=== PATIENT | female | born 2000 | race Caucasian/White ===

== ENCOUNTER 2024-11-25 10:51 | Emergency (ER) | payer BC, OTHER, SELFPAY ==
--- NOTE | 2024-11-25 10:53 | PC.NURSE ---
pt left due to wait time
--- OUTSIDE RECORDS SUMMARY | 2024-12-02 14:17 | XMS_ITS | Patient Health Summary ---
Author Organization [facility] Address [address] [place] [address] Care Team Providers Care Clerical Support Specialist Name Role Phone Yumiko Jones MD Primary Care Provider Note from [facility],non-owned Affiliates and Associated Physician Practices is amultiple site organization consisting of ambulatory clinics and hospital sitesin [place], [place], [place] and [place]. This disclosure is being madepursuant to the Care Everywhere program and may not contain all information available regarding this patient. Last updated 18.[facility] Allergies No known active allergies Medications * Be aware that medications may not be up to date on this document. Alwaysverify current medications with the patient. * escitalopram (LEXAPRO) 5 MG tablet(Started 04/14/2019) Take 1 tablet by mouth once daily Reasons: Major Depressive Disorder 1 refill remaining * traZODone (DESYREL) 50 MG tablet(Started 04/13/2019) Take 1 tablet by mouth at bedtime Reasons: Trouble Sleeping 1 refill remaining Active Problems Problem Noted Date Diagnosed Date MDD (major depressive disorder), single episode, severe 04/09/2019 Resolved Problems Problem Noted Date Diagnosed Date Resolved Date Suicidal ideation 04/11/2019 04/14/2019 Social History Tobacco Use Types Packs/Day Years Used Date Smoking Tobacco: Never Smokeless Tobacco: Never Alcohol Use Standard Drinks/Week Comments No 0 (1 standard drink = 0.6 oz pur e alcohol) Sex and Gender Information Value Date Recorded Sex Assigned at Not on file Gender Identity Not on file Sexual Orientation Not on file Last Filed Vital Signs Vital Sign Reading Time Taken Comments Blood Pressure 105/69 04/13/2019 7:19 PM CDT Pulse 73 04/13/2019 7:19 PM CDT Temperature 37 ??C (98.6 ??F) 04/13/2019 7:19 PM CDT Respiratory Rate 18 04/13/2019 7:19 PM CDT Oxygen Saturation 100% 04/13/2019 7:19 PM CDT Inhaled Oxygen Concentration - - Weight 47.1 kg (103 lb 12.8 oz) 04/09/2019 7:05 PM CDT Height 162.6 cm (5' 4 ) 04/09/2019 7:05 PM CDT Body Mass Index 17.82 04/09/2019 7:05 PM CDT Procedures * CHLAMYDIA + GC AMPLIFIED PROBE(Performed 04/10/2019) * HEMOGLOBIN A1C(Performed 04/10/2019) * LIPID PROFILE(Performed 04/10/2019) * TSH REFLEX FREE T4(Performed 04/10/2019) * COMPREHENSIVE METABOLIC PANEL(Performed 04/10/2019) * CBC W AUTO DIFFERENTIAL(Performed 04/10/2019) * HCG URINE QUALITATIVE - POCT (IP) INTERFACED(Performed 04/09/2019) * URINE DRUG SCREEN IMMUNOASSAY(Performed 04/09/2019) * URINALYSIS W/MICROSCOPIC NO CULTURE(Performed 04/09/2019) * CULTURE URINE(Performed 04/09/2019) * HCG URINE QUAL POCT NOTIFICATION(Performed 04/09/2019) Results * (ABNORMAL) CHLAMYDIA + GC AMPLIFIED PROBE (04/10/2019 1:41 PM CDT) Chlamydia Amplified Probe Positive(A) Negative 04/11/2019 8:05 AM CDT [facility] GC Amplified Probe Negative Negative 04/11/2019 8:05 AM CDT [facility] Microbiology URINE / Unknown Collection / Unknown 04/10/2019 1:41 PM CDT 04/10/2019 1:57 PM CDT Narrative [facility] - 04/11/2019 8:05 AM CDT Results based on detection/no detection of ribosomal RNA by amplified method. Boy De Santiago MD LAB - MICROBIOLOGY ORDERABLES [facility] [address] [place] [address], [facility] [phone] * TSH REFLEX FREE T4 (04/10/2019 6:23 AM CDT) TSH 1.1363 0.35 - 4.94 ulU/mL 04/10/2019 7:32 AM CDT [facility] Blood BLOOD SPECIMEN / Unknown Venipuncture / Unknown 04/10/2019 6:23 AM CDT 04/10/2019 6:34 AM CDT Frieda Morris HORTICULTURAL WORKER-DRAGLINE OPERATOR LAB - CHEMISTRY O RDERABLES Performing Organization Address [facility] Co de Phone Number [facility] [id number] [place] [address] * HEMOGLOBIN A1C (04/10/2019 6:23 AM CDT) Pathologist [facility] Hemoglobin A1c 4.8 4.0 - 6.1 % 04/10/2019 7:23 AM CDT [facility] Estimated Average Glucose 91 mg/dL 04/10/2019 7:23 AM CDT [facility] Blood BLOOD SPECIMEN / Unknown Venipuncture / Unknown 04/10/2019 6:23 AM CDT 04/10/2019 6:34 AM CDT Narrative [facility] - 04/10/2019 7:23 AM CDT Attention clinician: ??Reference Range has changed. Frieda Morris HORTICULTURAL WORKER-DRAGLINE OPERATOR LAB - CHEMISTRY O RDERABLES Performing Organization Address [facility] Co de Phone Number [facility] [address] [place] [address] * CBC W AUTO DIFFERENTIAL (04/10/2019 6:23 AM CDT) WBC 5.5 4.5 - 14.5 x10E9/L 04/10/2019 6:41 AM CDT [facility] WBC Corrected x10E9/L 04/10/2019 6:41 AM CDT [facility] RBC 4.32 4.10 - 5.10 x10E12/L 04/10/2019 6:41 AM CDT [facility] Hemoglobin 12.5 12.0 - 16.0 gm/dL 04/10/2019 6:41 AM CDT [facility] Hematocrit 38.7 36.0 - 47.0 % 04/10/2019 6:41 AM CDT [facility] MCV 89.6 78.0 - 102.0 fl 04/10/2019 6:41 AM CDT [facility] MCH 28.9 25.0 - 35.0 pg 04/10/2019 6:41 AM CDT [facility] MCHC 32.3 31.0 - 37.0 gm/dL 04/10/2019 6:41 AM CDT [facility] Platelet Count 252 100 - 400 x10E9/L 04/10/2019 6:41 AM CDT [facility] RDW-CV 12.6 11.5 - 14.0 % 04/10/2019 6:41 AM CDT [facility] MPV 9.5 6.0 - 9.5 fl 04/10/2019 6:41 AM CDT [facility] Neutrophils % 32.6 24.0 - 66.0 % 04/10/2019 6:41 AM CDT [facility] Lymphocytes % 49.9 22.0 - 61.0 % 04/10/2019 6:41 AM CDT [facility] Monocytes % 9.0 3.0 - 15.0 % 04/10/2019 6:41 AM CDT [facility] Eosinophils % 7.2 0.0 - 10.0 % 04/10/2019 6:41 AM CDT [facility] Basophils % 1.1 % 04/10/2019 6:41 AM CDT [facility] Immature Granulocytes 0.2 % 04/10/2019 6:41 AM CDT [facility] Neutrophil Absolute 1.80 1.08 - 9.57 x10E9/L 04/10/2019 6:41 AM CDT [facility] Lymphocytes Absolute 2.76 0.99 - 8.85 x10E9/L 04/10/2019 6:41 AM CDT [facility] Monocytes Absolute 0.50 0.14 - 2.18 x10E9/L 04/10/2019 6:41 AM CDT [facility] Eosinophils Absolute 0.40 0 - 1.45 x10E9/L 04/10/2019 6:41 AM CDT [facility] Basophils Absolute 0.06 0 - 0.29 x10E9/L 04/10/2019 6:41 AM CDT [facility] Immature Granulocytes Absolute 0.01 0 - 0.15 x10E9/L 04/10/2019 6:41 AM CDT [facility] nRBC Auto 0 /100 WBC 04/10/2019 6:41 AM T [facility] Blood BLOOD SPECIMEN / Unknown Venipuncture / Unknown 04/10/2019 6:23 AM CDT 04/10/2019 6:34 AM CDT Frieda Morris HORTICULTURAL WORKER-DRAGLINE OPERATOR LAB - HEMATOLOGY ORDERABLES [facility] [address] [place] [address] * COMPREHENSIVE METABOLIC PANEL (04/10/2019 6:23 AM CDT) Glucose 87 74 - 106 mg/dL 04/10/2019 7:08 AM [facility] Sodium 139 136 - 145 mmol/L 04/10/2019 7:08 AM [facility] Potassium 3.9 3.5 - 5.1 mmol/L 04/10/2019 7:08 AM T [facility] Chloride 105 98 - 107 mmol/L 04/10/2019 7:08 AM [facility] CO2 25 20 - 28 mmol/L 04/10/2019 7:08 AM [facility] Calcium 9.6 8.4 - 10.2 mg/dL 04/10/2019 7:08 AM [facility] Anion Gap 9 8 - 16 mmol/L 04/10/2019 7:08 AM [facility] Comment: Assay measuring below lower limits of linearity, calculated result not valid in this circumstance. BUN 12 7 - 18.7 mg/dL 04/10/2019 7:08 AM [facility] Creatinine 1.00 0.55 - 1.02 mg/dL 04/10/2019 7:08 AM [facility] Alkaline Phosphatase 40 40 - 150 U/L 04/10/2019 7:08 AM T [facility] ALT 14 13 - 61 U/L 04/10/2019 7:08 AM T [facility] AST 15 5 - 34 U/L 04/10/2019 7:08 AM CDT [facility] Protein Total 7.1 6.4 - 8.3 gm/dL 04/10/2019 7:08 AM CDT [facility] Albumin 4.1 3.4 - 5.0 gm/dL 04/10/2019 7:08 AM CDT [facility] Bilirubin Total 0.6 0.2 - 1.0 mg/dL 04/10/2019 7:08 AM CDT [facility] eGFR by MDRD mL/min/1.7 3m2 04/10/2019 7:08 AM CDT [facility] Comment: eGFR calculations are not performed for children under 18 years old. eGFR by MDRD mL/min/1.7 3m2 04/10/2019 7:08 AM CDT [facility] Comment: eGFR calculations are not performed for children under 18 years old. Blood BLOOD SPECIMEN / Unknown Venipuncture / Unknown 04/10/2019 6:23 AM CDT 04/10/2019 6:34 AM CDT Narrative [facility] - 04/10/2019 7:08 AM CDT Attention clinician: BUN Reference Range has changed. Frieda Morris HORTICULTURAL WORKER-DRAGLINE OPERATOR LAB - CHEMISTRY O RDERABLES [facility] [address] [place] [address] * (ABNORMAL) LIPID PROFILE (04/10/2019 6:23 AM CDT) Cholesterol 195 <200 mg/dL 04/10/2019 7:08 AM CDT [facility] Triglycerides 74 <150 mg/dL 04/10/2019 7:08 AM CDT [facility] HDL Cholesterol 53 >40 mg/dL 9 7:08 AM CDT [facility] LDL Calculated 127 <130 mg/dL 04/10/2019 7:08 AM CDT [facility] VLDL Calculated 15(L) >=30 mg/dL 9 7:08 AM CDT [facility] Chol HDL Ratio 3.7 <4.5 04/10/2019 7:08 AM CDT [facility] LDL/HDL Ratio 2.4 <5.0 04/10/2019 7:08 AM CDT [facility] Blood BLOOD SPECIMEN / Unknown Venipuncture / Unknown 04/10/2019 6:23 AM CDT 04/10/2019 6:34 AM CDT Frieda Morris APRN-DRAGLINE OPERATOR LAB - CHEMISTRY O RDERABLES [facility] [address] [place] [address] * HCG URINE QUALITATIVE - POCT (IP) INTERFACED (04/09/2019 3:02 PM CDT) HCG Qual Urine Negative Negative 04/09/2019 2:54 PM CDT [facility] Urine URINE / Unknown 04/09/2019 3 :02 PM CDT 04/09/2019 2:54 PM CDT Kumar Marcano MD LAB - POINT OF CARE ORDERABLES Performing Organization Address City/[facility]/ZIP Co de Phone Number [facility] [place] [address] * (ABNORMAL) URINALYSIS W/MICROSCOPIC NO CULTURE (04/09/2019 2:47 PM CDT) Color UA Citlali(A) Straw, Yellow 04/09/2019 3:05 PM T [facility] Clarity UA Clear Clear 04/09/2019 3:05 PM T [facility] Glucose UA Negative Negative 04/09/2019 3:05 PM T [facility] Bilirubin UA Negative Negative 04/09/2019 3:05 PM T [facility] Ketone UA Negative Negative 04/09/2019 3:05 PM T [facility] Specific [place] UA 1.025 1.005 - 1.030 04/09/2019 3:05 PM T [facility] Blood UA 1+(A) Negative 04/09/2019 3:05 PM T [facility] pH UA 6.0 5.0 - 8.0 pH 04/09/2019 3:05 PM T [facility] Protein UA 1+(A) Negative 04/09/2019 3:05 PM T [facility] Urobilinogen UA 2.0(A) Negative mg/dL 04/09/2019 3:05 PM CDT [facility] Nitrite UA Positive(A) Negative 04/09/2019 3:05 PM CDT [facility] Leukocyte UA Negative Negative 04/09/2019 3:05 PM CDT [facility] RBC UA 11-20(A) None Seen, 0-2, 3-5 # /hpf 04/09/2019 3:05 PM CDT [facility] WBC UA 21-50(A) None Seen, 0-5 # /hpf 04/09/2019 3:05 PM CDT [facility] Bacteria UA Trace(A) None Seen 04/09/2019 3:05 PM CDT [facility] Squamous Epithelial Cells 0-2 None Seen, 0-2, 3-5 /hpf 04/09/2019 3:05 PM CDT [facility] Mucus UA 3+ /LPF 04/09/2019 3:05 PM CDT [facility] Urine URINE SPECIMEN OBTAINED BY CLEAN CATCH PROCEDURE / Unknown Collection / Unknown 04/09/2019 2:47 PM CDT 04/09/2019 2:59 PM CDT Narrative [facility] - 04/09/2019 3:05 PM CDT Homer Mackenzie MD LAB - URINALY SIS ORDERABLES Performing Organization Address City/[facility]/ZIP Co de Phone Number [facility] [place] [address] * CULTURE URINE (04/09/2019 2:47 PM CDT) Culture Urine 10,000-50,000 CFU/mL urogenital hansa DYLAN 04/11/2019 10:23 AM CDT [facility] Urine URINE SPECIMEN OBTAINED BY CLEAN CATCH PROCEDURE / Unknown Collection / Unknown 04/09/2019 2:47 PM CDT 04/09/2019 3:30 PM CDT Homer Mackenzie MD LAB - MICROBI OLOGY ORDERABLES [facility] [address] [place] [address] [phone] * (ABNORMAL) DRUG SCREEN TOX URINE PANEL (04/09/2019 2:47 PM CDT) Pathologist [facility] Amphetamines Screen Urine Not Detected Not Detected 04/09/2019 5:46 PM CDT [facility] Barbiturates Screen Urine Not Detected Not Detected 04/09/2019 5:46 PM CDT [facility] Benzodiazepines Screen Urine Not Detected Not Detected 04/09/2019 5:46 PM CDT [facility] Cannabinoids Screen Urine Detected(AA ) Not Detected 04/09/2019 5:46 PM CDT [facility] Cocaine Screen Urine Not Detected Not Detected 04/09/2019 5:46 PM CDT [facility] Methadone Screen Urine Not Detected Not Detected 04/09/2019 5:46 PM CDT [facility] Opiate Screen Urine Not Detected Not Detected 04/09/2019 5:46 PM CDT [facility] Phencyclidine Screen Urine Not Detected Not Detected 04/09/2019 5:46 PM CDT [facility] Urine URINE / Unknown 04/09/2019 2 :47 PM CDT 04/09/2019 5:24 PM CDT Narrative [facility] - 04/09/2019 5:46 PM CDT This drug screen is designed for MEDICAL purposes only. It is not to be used for legal purposes, including but not limited to worker's comp, police investigations, occupational issues, child custody, etc. ??Any positive result is only presumptive and must be confirmed with a separate confirmatory test ordered by the physician. Drug Screening Test Cutoff Values: AMPHETAMINES ?1000 ng/mL BARBITURATES ? 200 ng/mL BENZODIAZEPINES ??200 ng/mL CANNABINOIDS(THC) 50 ng/mL COCAINE ?300 ng/mL METHADONE ?300 ng/mL OPIATES ?300 ng/mL PHENCYCLIDINE(PCP)25 ng/mL Kumar Marcano MD LAB - URINE CHEMISTR Y ORDERABLES [facility] [address] [place] [address] * HCG URINE QUAL POCT NOTIFICATION (04/09/2019 2:27 PM CDT) Pathologist [facility] Comment Notification Label Only - See Separate Report 04/09/2019 3:30 PM CDT [facility] Urine URINE / Unknown 04/09/2019 2 :27 PM CDT 04/09/2019 2:27 PM CDT Homer Mackenzie MD LAB - URINALY SIS ORDERABLES [facility] [place] [address] Care Teams Clerical Support Specialist Relationship Specialty Start Date End Date Yumiko Jones MD [address] [place] [address] PCP - General Pediatrics 04/09/19
--- OUTSIDE RECORDS SUMMARY | 2024-12-02 14:17 | XMS_ITS | Referral Summary ---
Author Organization [facility] Address [address] [place] [address] Care Team Providers Care Portfolio Lead Name Role Phone Yumiko Jones MD Primary Care Provider Source Comments [facility],non-[facility] health Affiliates and Associated Physician Practices is amultiple site organization consisting of ambulatory clinics and hospital sitesin [place], [place], [place] and [place]. This disclosure is being madepursuant to the Care Everywhere program and may not contain all information available regarding this patient. Last updated 18.[facility] Allergies No known active allergies Medications * Be aware that medications may not be up to date on this document. Alwaysverify current medications with the patient. Medication Sig Dispensed Refills Start Date End Date Status escitalopram (LEXAPRO) 5 MG tabletIndications:M ajor Depressive Disorder Take 1 tablet by mouth once daily Reasons: Major Depressive Disorder 30 tablet 1 04/14/2019 Active traZODone (DESYREL) 50 MG tabletIndications:I nsomnia Take 1 tablet by mouth at bedtime Reasons: Trouble Sleeping 30 tablet 1 04/13/2019 Active Active Problems Problem Noted Date Diagnosed Date [...] Mass Index 17.82 04/09/2019 7:05 PM CDT Functional Status Functional Status Response Date of Assess ment Is person deaf or have serious hearing difficult y? No 04/09/2019 Is person blind or have serious difficulty seein g? No 04/09/2019 Does person have serious dif ficulty walking/climbing stairs? No 04/09/2019 Does person have difficulty dressing/bathing? No 04/09/2019 Does person have difficulty doing errands alone? No 04/09/2019 Cognitive Status Response Date of Assessm ent Does person have difficulty concentrating/remembering/making decisions? No 04/09/2019 Plan of Treatment Not on file Procedures Procedure Name Priority Date/Time Associated Diagnosis Comments CHLAMYDIA + GC AMPLIFIED PROBE Routine 04/10/2019 1:41 PM CDT from Last 3 Months or Most Recently Relevant to Health Maintenance Results * (ABNORMAL) CHLAMYDIA + GC AMPLIFIED PROBE (04/10/2019 1:41 PM CDT) Chlamydia Amplified Probe Positive(A) Negative 04/11/2019 8:05 AM CDT [facility] GC Amplified Probe Negative Negative 04/11/2019 8:05 AM CDT [facility] Microbiology URINE / Unknown Collection / Unknown 04/10/2019 1:41 PM CDT 04/10/2019 1:57 PM CDT Narrative [facility] - 04/11/2019 8:05 AM CDT Results based on detection/no detection of ribosomal RNA by amplified method. Boy De Santiago MD LAB - MICROBIOLOGY ORDERABLES [facility] [address] [place] [address], [facility] [phone] from Last 3 Months or Most Recently Relevant to Health Maintenance Advance Directives * Full Code (Latest Code Status on File) Date Activated Date Inactivated Comments 04/09/2019 8:31 PM 04/14/2019 11:19 AM Care Teams Portfolio Lead Relationship Specialty Start Date End Date Yumiko Jones MD [address] [place] [address] [address] [place] [address] PCP - General Pediatrics 04/09/19
--- OUTSIDE RECORDS SUMMARY | 2024-12-02 14:17 | XMS_ITS | Encounter Summary ---
Author Organization [facility] Address [facility] [facility] [place] [address] Care Team Providers Care Business Partner Name Role Phone Yumiko Jones MD Primary Care Provider [phone] Reason for Visit * Reason Onset Date Comments Referral 10/30/2021 Encounter Details Date Type Department Care Team (Late st Contact Info) Description 10/30/2021 Telephone [facility] Medical [facility] - Rheumatology [address] [facility], [address] [place] [address] Yaritza Steven MD [facility] [place] [address] Referral Social History Tobacco Use Types Packs/Day Years Used Date Smoking Tobacco: Never Smokeless Tobacco: Never Alcohol Use Standard Drinks/Week Comments No 0 (1 standard drink = 0.6 oz pur e alcohol) Sex and Gender Information Value Date Recorded Sex Assigned at Not on file Gender Identity Not on file Sexual Orientation Not on file documented as of this encounter Functional Status Functional Status Response Date of [...] person have difficulty concentrating/remembering/making decisions? No 04/09/2019 documented as of this encounter Miscellaneous Notes * Telephone Encounter - Eugene Kaufman RN - 11/03/2021 11:59 AM CST Received a fax for the patient to be seen by Rheumatology. LMOR for patient to contact the office to schedule STUDENT SUPPORT ADVISOR appointment with Dr. Steven. Called referral x3 on both numbers listed in file. No further calls will be made but if patient contacts the office can be scheduled for the soonest STUDENT SUPPORT ADVISOR appointment. 400 ADMINISTRATOR * Telephone Encounter - Eugene Kaufman RN - 10/31/2021 10:35 AM CST Received a fax for the patient to be seen by Rheumatology. LMOR for patient to contact the office to schedule STUDENT SUPPORT ADVISOR appointment with Dr. Steven. Called referral x2 400 ADMINISTRATOR * Telephone Encounter - Eugene Kaufman RN - 10/30/2021 4:14 PM CST Received a fax for the patient to be seen by Rheumatology. LMOR for patient to contact the office to schedule STUDENT SUPPORT ADVISOR appointment with Dr. Steven. Called referral x1 400 ADMINISTRATOR documented in this encounter Plan of Treatment Not on file documented as of this encounter Visit Diagnoses Not on filedocumented in this encounter Care Teams Business Partner Relationship Specialty Start Date End Date Yumiko Jones MD [address] [place] [address] PCP - General Pediatrics 04/09/19 documented as of this encounter
--- OUTSIDE RECORDS SUMMARY | 2024-12-02 14:17 | XMS_ITS | Encounter Summary ---
Author Organization [facility] Address [address] [place] [address] Care Team Providers Care Pig Machine Supervisor Name Role Phone Yumiko Jones MD Primary Care Provider Reason for Visit * Reason Comments Depression Patient reports darrin alonzo upset this morning because she was getting ready for work and couldn't find her belt. Patient started crying and couldn't stop. Patient has thoughts to hurt herself by cutting herself with her wrists. Patient also having depression due to boyfriend moving to [place], sister moving to college, and other sister moved in with her mom. Patient denies wanting to kill herself but does think about it. Plan for suicide would be OD on pills. * Auth/Cert Specialty Diagnoses / Procedures Referred By Contac t Referred To Contact Referral ID Status Reason Start Date Expiration Date Visits Re quested Visits Authorized [id number] 1 1 Encounter Details Date Type Department Care Team (Late st Contact Info) Description 04/09/2019 1:23 PM CDT - 04/09/2019 6:22 PM CDT Emergency ER at [address] [address] Kumar Marcano MD [address] [place] [id number] Depressed mood; Suicidal ideations; Urinary tract infection without hematuria, site unspecified Discharge Disposition: Psychiatric Hospital or Unit Social History Tobacco Use Types Packs/Day Years Used Date Smoking Tobacco: Never Smokeless Tobacco: Never Alcohol Use Standard Drinks/Week Comments No 0 (1 standard drink = 0.6 oz pur e alcohol) Sex and Gender Information Value Date Recorded Sex Assigned at Not on file Gender Identity Not on file Sexual Orientation Not on file documented as of this encounter Last Filed Vital Signs Vital Sign Reading Time Taken Comments Blood Pressure 108/68 04/09/2019 6:16 PM CDT Pulse 74 04/09/2019 6:16 PM CDT Temperature 36.7 ??C (98.1 ??F) 04/09/2019 6:16 PM CD T Respiratory Rate 16 04/09/2019 6:16 PM CDT Oxygen Saturation 100% 04/09/2019 6:16 PM CDT Inhaled Oxygen Concentration - - Weight 48.8 kg (107 lb 9.4 oz) 04/09/2019 1:51 P M CDT Height 157.5 cm (5' 2 ) 04/09/2019 1:51 PM CDT Body Mass Index 19.68 04/09/2019 1:51 PM CDT Body Mass Index Percentile 34.27% 04/09/2019 1:5 1 PM CDT Growth Chart: [facility] (Girls, 2- 20 Years) documented in this encounter Medications at Time of Discharge Medication Sig Dispensed Refills Start Date End Date escitalopram (LEXAPRO) 5 MG tabletIndications:Kristyn r Depressive Disorder Take 1 tablet by mouth once daily Reasons: Major Depressive Disorder 30 tablet 1 04/14/2019 traZODone (DESYREL) 50 MG tabletIndications:Inso mnia Take 1 tablet by mouth at bedtime Reasons: Trouble Sleeping 30 tablet 1 04/13/2019 Norgestim-Eth Estrad Triphasic (TRI-SPRINTEC PO) 04/13/2019 documented as of this encounter Progress Notes * Norma Burt APRN-TYRON - 04/09/2019 3:54 PM CDT CENTRAL INTAKE CONSULTATION WITH NURSE PRACTITIONER (revised 6-21-18) Daiana Spencer 18 year old 04/09/2019 [facility] EMERGENCY DEPARTMENT Place service provided to Patient : [facility] ED Case discussed with central barrel scraper Estela and chart reviewed. Who brought the patient to the Hospital: Step mom Is there an affidavit in the chart: No Reason for Evaluation and Brief History: Patient presents with suicidal ideations, intermittent with thoughts of overdosing on pills. No hx of suicide attempts. Hx of SIB by scratching herself. Stressed due to no contact with boyfriend anymore, less people to talk to/support at home. Increase in crying and sadness and 'breakdowns'. Denies homicidal ideations, hallucinations. Significant findings reported in Mental Status Exam: SI with a plan Significant lab findings: hcg negative UA abnormal Provisional Diagnosis: MDD Plan of Management / Treatment: Provide a safe environment, medication management, group therapy Medication recommended: None at this time Disposition: Patient does meet criteria for inpatient psychiatric admission at this time, will admit to psych once a bed becomes available and the patient is medically cleared. Note prepared by: LEONEL Shaw * Kimberly Goldsmith - 04/09/2019 1:39 PM CDT Central Intake received a ED CONSULT CENTRAL INTAKE Order and added patient to the Behavioral Health List (BHS List) for an assessment. documented in this encounter Consult Notes * Estela Peña - 04/09/2019 3:23 PM CDT CENTRAL INTAKE ASSESSMENT: ? REASON FOR ASSESSMENT: Daiana Spencer is a 18 year old female who presents to the ED with the initial chief complaint(s) per triage note of: Chief Complaint Patient presents with ??? Depression Patient reports becoming upset this morning because she was getting ready for work and couldn't find her belt. Patient started crying and couldn't stop. Patient has thoughts to hurt herself by cutting herself with her wrists. Patient also having depression due to boyfriend moving to [place], sister moving to college, and other sister moved in with her mom. Patient denies wanting to kill herself but does think about it. Plan for suicide would be OD on pills. The above was entered during triage and not by author of this note. ?? Admitting Information: Admitting Diagnosis: Major Depressive disorder, singe episode, severe F32.2 Admitting Physician: Dr. Cobian Staffing Physician: OPAL Green Discussed case with: Stefani CroweAutoglazier Hospital / Unit: [facility] Room:[facility] Phone number for Unit: [phone] Patient's current location: [facility] Report information for Behavioral Health Unit: Nurse Name: Norma Nurse contact number: [phone] Guardian and Consents: Current Residence of Patient Private Guardian name/relationship, if applicable (Parent /DFS/DJO/Foster):Mother: Jody Escoto Guardian contact #: [phone] Was guardianship verified Yes If so how? The mother Consents handed off to: yes Time consents faxed to unit : yes Admission status: Patient voluntary? Yes Affidavit completed: No ?? Patient Involuntary: No ?? If Yes, Was the patient's Rights Read: No What time did the Involuntary start?:na Who read and filled out the paperwork? na Was this a [address] Order: No ? MAURO I/MAURO II No If yes, is this information in the FYI tab? No ?? Who is providing the information: The patient and her mother Jody Escoto ? PRESENTING PROBLEM: The patient is a 18 year old female presenting to the Emergency Department via private vehicle witha complaint (s) of intermittent SI thoughts and Depression. The precipitating event is the patient had a melt down today prior to going to work. The patient reports that she woke up late this morningfor work and couldn't find her belt. The patient states that she finally made it to her car but then broke down. The patients' mother noticed the patient having a break down in the car and asked the patient is she wanted to come to the hospital. The patient reports that today as she cried in the car she had thoughts of wanting to go to sleep and never wake up. The patient reports that she has been having intermittent SI thoughts for over a year where the thoughts come when the patient is havinga melt down or crying. The patient reports that she does not want to kill herself but has thoughts about overdosing on pills. The patient also has a history of SIB of cutting or scratching herself. The patient reports that she sometimes scratches herself with her nails on her forearm or will use the metal piece of a fpga design engineer to scratch herself on her forearm and last cut two weeks ago. The patientdenies HI and Hallucinations. The patient has had a few stressors over the past 2 years. The patient's boyfriend who was also herboyfriend moved to [place] two years ago and today decided that they would not longer keep in contact. The patient's middle sister decided to move in with her biological mother and wanted nothingto do with the family anymore. The patient's older sister moved to college and the patient feels doug everyone who has loved her has left her. The patient has also been having difficulties at schoolwhere she feels as if her peers do not understand her and that she doesn't feel like she has any friends. The patient has never been admitted to an inpatient unit before, has never seen a psychiatrist, andhas never seen a therapist. The patient's mother reports that she has been working in getting the patient in to see a therapist but the patient has not yet seen one. ?? How long have these events been occurring? Over a year Have the symptoms increased? Yes Have the symptoms decreased? No ?? SUICIDAL SCREEN: (SI, Plan, Intent, Past Attempts, Self-injury, Unsafe Behaviors, history of suicide threats, history of running away) Describe SI intermittent. Thoughts to OD on pills. No previous attempts. SIB by scratching or cutting with fingernails or metal piece of fpga design engineer. ?? Ask questions that are in bold and underlined(Document patients response). 1) Wish to be : Person endorses thoughts about a wish to be or not alive anymore, or wish to fall asleep and not wake up? Have you wished you were or wished you could go to sleep and not wake up? If yes, describe: SI intermittent. Thoughts to OD on pills. No previous attempts. SIB by scratchingor cutting with fingernails or metal piece of fpga design engineer. Past Month: Yes 2) Suicidal Thoughts: General non-specific thoughts of wanting to end one???s life/ by suicide, ???I???ve thought about killing myself?? without general thoughts of ways to kill oneself/associated methods, intent, or plan.?? Have you had any actual thoughts of killing yourself? If yes, describe: SI intermittent. Thoughts to OD on pills. No previous attempts. SIB by scratchingor cutting with fingernails or metal piece of fpga design engineer. Past Month: Yes If YES to 2, ask questions 3, 4, 5, and 6. If NO to 2, go directly to question 6. 3) Suicidal Thoughts with Method (without Specific Plan or Intent to Act): Person endorses thoughts of suicide and has thought of a least one method during the assessment period. This is different than a specific plan with time, place or method details worked out. ???I thought about taking an overdose but I never made a specific plan as to when where or how I would actually do it???.and I would never go through with it.?? Have you been tSI intermittent. Thoughts to OD on pills. No previous attempts. SIB by scratching orcutting with fingernails or metal piece of fpga design engineer. hinking about how you might do this? If yes, describe: Past Month: Yes 4) Suicidal Intent (without Specific Plan): Active suicidal thoughts of killing oneself and patient reports having some intent to act on such thoughts, as oppose to ???I have the thoughts but I definitely will not do anything about them.?? Have you had these thoughts and had some intention of acting on them? If yes, describe: SI intermittent. Thoughts to OD on pills. No previous attempts. SIB by scratchingor cutting with fingernails or metal piece of fpga design engineer. Past Month: No 5) Suicide Intent with Specific Plan: Thoughts of killing oneself with details of plan fully or partially worked out and person has some intent to carry it out. Have you started to work out or worked out the details of how to kill yourself? Do you intend to carry out this plan? If yes, describe: SI intermittent. Thoughts to OD on pills. No previous attempts. SIB by scratchingor cutting with fingernails or metal piece of fpga design engineer. Past Month: No 6) Suicide Behavior Question Have you ever done anything, started to do anything, or prepared to do anything to end your life? Examples: Collected pills, obtained a gun, gave away valuables, wrote a will or suicide note, took out pills but didn???t swallow any, held a gun but changed your mind or it was grabbed from your hand, went to the roof but didn???t jump; or actually took pills, tried to shoot yourself, cut yourself, tried to hang yourself, etc. If yes, describe: SI intermittent. Thoughts to OD on pills. No previous attempts. SIB by scratchingor cutting with fingernails or metal piece of fpga design engineer. Lifetime: No Past 3 Months: No Response Protocol to C-SSRS Screening If response to item 1 or 2 is ???Yes?? LOW - Behavioral Health Referral If response to item 3 is ???Yes?? MEDIUM - Consider Patient Safety Precautions If response to item 4 or 5 is ???Yes?? HIGH - Immediate Notification of Physician and/or Behavioral Health and Patient Safety Precautions If response to item 6 Over 3 months ago is ???Yes?? MEDIUM - Consider Patient Safety Precautions If response to item 6 is 3 months ago or less is ???Yes?? HIGH - Immediate Notification of Physician and/or Behavioral Health and Patient Safety Precautions ?? HOMICIDAL SCREEN: (Homicidal Ideation, Plan to harm others, Intent to harm others Past History) ?? Describe: Denies ? SYMPTOMS OF PSYCHOSIS: none ? PREVIOUS MENTAL HEALTH HISTORY: Any prior Psychiatric Admissions: No ?If yes Date and location: none Do you have any current Providers: none ? When was your last Appointment: none ?? Have you been compliant with treatment: none ?? Are there any additional information provided(any treatment received?): none Family History of Mental Illness? Yes If yes, what and relationship to patient? Mother and grandmother- anxiety and depression HOME MEDICATIONS: No ?? Do you have a list of your medication with you? No ?? Pharmacy Information: Intellectual disability/autism/DD: No Infected/Isolation Patient? No Last date/type na na ? Need assistance w/ ADL's? No Lines/Tubes: No Behavioral Health Risk Alert: No Epic Referral Source Completed: Yes ? Patient Affect: depressed ?? Orientation: Time, Person, Place, Situation ?? Eye Contact: Good ?? Sleep: Insomnia No Hypersomnia No Nightmares No What are your current sleep hours? Patient sleeps well Are your current sleep hours different from your regular sleep hours? Patient sleeps well (Describe your sleeping pattern):Patient sleeps well ? Self Care: Decrease ADL's No Decreased Interest in activities No Change in Appetite No Fatigue No Weight Loss/Gain No (Describe any sudden changes):none ?? Appearance: Well-groomed ? Cognitive: (Alert, oriented, paranoid, hallucinations, delusions, suspicious, flight of ideas, obsessions, insight deficit, confusion, loose associations, blocking, racing thoughts, ideas of reference, grandiosity, flashbacks, impaired memory, poor concentration, ruminating) Describe Alert and oriented x4, denies AH and VH ? Behavior: calm and cooperative ?? Speech:normal ?? Coping Patterns: Poor judgement and Poor decision-making skills ? Abuse History: (Sexual, Physical, Assault, Emotional, Neglect, Rape) Describe( document any past or present information the patient provides) :Denies ? If yes, what year did this take place?none ?? Was the case hot-lined?: No ?? SUBSTANCE ABUSE: Hx of Substance use: Yes Substances reported using in the past: marijuana Current Substance use: Yes Substances currently using,how much and how often: marijuana- daily Current withdrawal symptoms: None Symptoms experienced during withdrawals in the past:none History of treatment with dates and locations: none Triggers/risk factors for relapse:none How has substance use impacted the following four areas of your life: Mental health none Physical health none Family/relationships none Legal issues none ?? PSYCHOSOCIAL HISTORY: Stressors: sister's gone, school, boyfriend Living situation: lives with mother, father, brother Work/education:[employer] Assets/supports: mother ?? Legal Issues: Legal problem: No Previous or Current Charges related to legal issues: No Previous or Current Convictions related to legal issues: No Feel safe in current situation:No ? Sexual Misconduct (If yes provide Details) Does patient report any sexually inappropriate behavior? No Does patient report that they have been accused or investigated for sexually inappropriate behavior? No Does patient's none (Family/Guardian/Caregiver, Provide Name of contact) , report that patient has had sexually inappropriate behavior? No Does patient's none (Family/Guardian/Caregiver, Provide Name of contact), report that patient has ever been investigated by, school, law enforcement, or health agency regarding sexual inappropriate behavior? No Any other reports for Sexual Misconduct: Verbal:No Physical:No Assault: No If yes, when and was it reported? No Is the Patient a registered Sex Offender: No If yes, where: none Past History Of Aggression or Aggressive Behaviors: No If yes please provide details:none ?? Does the patient have a history of physical aggression? No ?? Is the patient verbally aggressive? No ?? When was the last episode of aggressive behavior displayed?: none ?? Has the Patient been physically aggressive while in the Emergency Department, private home or grouphome? No Please describe: none ?? DISPOSITION: ?? Discussed case with OPAL Green (Psychiatric Provider) who Agrees, that patient does meet criteriafor Inpatient behavioral health services. Discussed case with Dr. Mackenzie (ED Physician) who Agrees,that the patient does meet criteria for Inpatient behavioral health services. Updated LOI Green (ED RN) of patient???s status and Inpatient disposition. LOI Green (ED RN) provided admission (referrals or admission information). All verbalized understanding. ?? The Page Scale, shows that based on patient's presentation they currently warrant a medium riskof self harm, this has been provided to OPAL Green (Psychiatric Provider) and ED Physician along with LOI Green ED Registered Nurse. Additional Information if disposition is for admission: Patient will be admitted under the care of Dr. Cobian (Psychiatric Provider). Central Metal Drill Operator Estela called and discussed the case with [facility] for appropriate bed placement. Provisional Diagnosis: ?? Major Depressive disorder, singe episode, severe F32.2 ?? Assessment Times: [id number] Notes: Initial contact with On-Call for Psychiatry at 1550 (Time) On-Call for Psychiatry provided disposition at 1553 (Time) Initial contact with Autoglazier at 1523 (Time) [facility] disposition at 1526 (Time) documented in this encounter ED Notes * Cady Cadet RN - 04/09/2019 5:38 PM CDT Called Reginald PARKINSON [id number]. * Norma Anthony RN - 04/09/2019 5:18 PM CDT Lab called to add UDS to UA. * Norma Anthony RN - 04/09/2019 3:06 PM CDT Patient on Skype with Central Pressroom Foreman, Estela. * Norma Anthony RN - 04/09/2019 1:49 PM CDT Patient placed in room with safe set up, changed into blue paper scrubs, and an elopement band was placed on patient's dominate right wrist following activation. Patient belongings (one bag) placed outside room and includes patient's purse. Patient's cell phone given to mom per patient's request. Se fox called to wand patient. Security and CSN notified of patient's elopement status. Patient and family updated on POC. No questions at this time. * Kumar Marcano MD - 04/09/2019 1:47 PM CDT Provider contact with the patient: 04/09/2019 1:47 PM [facility] EMERGENCY DEPARTMENT Daiana Spencer [id number] History Chief Complaint Patient presents with ??? Depression Patient reports becoming upset this morning because she was getting ready for work and couldn't find her belt. Patient started crying and couldn't stop. Patient has thoughts to hurt herself by cutting herself with her wrists. Patient also having depression due to boyfriend moving to [place], sister moving to college, and other sister moved in with her mom. Patient denies wanting to kill herself but does think about it. Plan for suicide would be OD on pills. Chief complaint narrative was entered by triage nurse, not by physician. I have read the resident/medical student/MACHINIST MECHANIC history. Unless appended by me below, I agree with findings as documented. HPI History provided per: Step-Mother Daiana Spencer is a 18 year old female with no significant past medical history who presents to ED for evaluation of a depressed mood and SI that began 2 years ago. The patient reports one of her sisters moved in with her mom and moved away and her other sister moved away for college 2 years ago. She reports that since then she has been more depressed and crying more. Recently her boyfriend movedto [place] and she has not been taking it well per Step-Mom. This morning she tried to find [employer] for work and had a meltdown. Step-Mom reports she doesn't want to see the patient cry anymore and brought her here for evaluation. She states she has thoughts of self harm but has not hurt herself. The patient also thinks she has a UTI, she is have frequency and dysuria for the past 5-6 days. N o exacerbating or alleviating factors. Associated symptoms include increased sleeping. Denies HI, fever, vomiting, vaginal discharge, and vaginal bleeding. No other recent injuries or illnesses. All immunizations are up-to-date. No Known Allergies Review of Systems All relevant systems reviewed and all negative except as noted in resident/medical student/MACHINIST MECHANIC and attending HPI/ROS. Constitutional: No appetite change or fever +increased sleeping HENT: No congestion or rhinorrhea Respiratory: No cough or wheezing Cardiovascular: Negative GI: No abdominal pain, diarrhea, nausea or vomiting : No decreased urine output +frequency, +dysuria MS: Negative Neuro: +depression, +SI Skin: No rash or wounds All other systems negative except as noted above. Physical Exam I have reviewed the resident/medical student/MACHINIST MECHANIC physical exam. Unless appended by me below, I agreewith the PE as documented. Vitals: 04/09/19 1351 BP: 104/58 Pulse: 64 Resp: 16 Temp: 97.9 ??F (36.6 ??C) Weight: 48.8 kg (107 lb 9.4 oz) Height: 157.5 cm (62 ) Constitutional: Pt appears well-developed and well-nourished; in no acute distress. Mildly flat affect. Head: Normocephalic; atraumatic. Eyes: Conjunctivae are normal. ENT: Mucous membranes moist. Neck: Supple. Normal ROM. Cardiovascular: Regular rate and rhythm. S1 and S2 normal. No murmurs, rubs or gallops. Pulmonary: Normal respiratory effort. Breath sounds clear and equal bilaterally; no wheezing, rales, or rhonchi. Abdominal: Soft. No abdominal tenderness. No distension. Extremities: Full ROM. Neurological: Pt is alert and interactive. Skin: No rash or lesions. Nursing notes and vitals reviewed. Procedures Procedures Labs/Orders Orders Placed This Encounter ??? CULTURE URINE ??? URINALYSIS W/MICROSCOPIC NO CULTURE ??? HCG URINE QUAL POCT NOTIFICATION ??? DRUG SCREEN TOX URINE PANEL ??? IP CONSULT TO CENTRAL INTAKE ??? IP CONSULT TO CENTRAL INTAKE ??? ciprofloxacin (CIPRO) tablet 250 mg No orders to display Hospital Encounter on 04/09/19 URINALYSIS W/MICROSCOPIC NO CULTURE Result Value Ref Range Color UA Citlali (Abnormal) Straw, Yellow Clarity UA Clear Clear Glucose UA Negative Negative Bilirubin UA Negative Negative Ketone UA Negative Negative Specific [place] UA 1.025 1.005 - 1.030 Blood UA 1+ (Abnormal) Negative pH UA 6.0 5.0 - 8.0 pH Protein UA 1+ (Abnormal) Negative Urobilinogen UA 2.0 (Abnormal) Negative mg/dL Nitrite UA Positive (Abnormal) Negative Leukocyte UA Negative Negative RBC UA 11-20 (Abnormal) None Seen, 0-2, 3-5 # /hpf WBC UA 21-50 (Abnormal) None Seen, 0-5 # /hpf Bacteria UA Trace (Abnormal) None Seen Squamous Epithelial Cells 0-2 None Seen, 0-2, 3-5 /hpf Mucus UA 3+ /LPF HCG URINE QUAL POCT NOTIFICATION Result Value Ref Range Comment Notification Label Only - See Separate Report DRUG SCREEN TOX URINE PANEL Result Value Ref Range Amphetamines Screen Urine Not Detected Not Detected Barbiturates Screen Urine Not Detected Not Detected Benzodiazepines Screen Urine Not Detected Not Detected Cannabinoids Screen Urine Detected (Critical) Not Detected Cocaine Screen Urine Not Detected Not Detected Methadone Screen Urine Not Detected Not Detected Opiate Screen Urine Not Detected Not Detected Phencyclidine Screen Urine Not Detected Not Detected HCG URINE QUALITATIVE - POCT (IP) INTERFACED Result Value Ref Range HCG Qual Urine Negative Negative ED Course Initial Assessment & Plan: 18 yo with hx of depression and some SI. Will discuss with and consult Central Intake. Patient also with a possible UTI. Will obtain UA and urine culture. 2:27 PM: Assessed patient. 3:11 PM: UA shows +nitries and 21-50 WBC, c/w a UTI. Will treat with Cipro. 4:42 PM: Patient has been evaluated by Central Intake and meets inpatient criteria. She has also been medically cleared. Awaiting bed placement. 5:10 PM: A bed is available at [facility] under Dr. Cobian. Will check a UDS per their request and arrange transfer via ALS. 5:11 PM I have made arrangements to transfer the patient to [facility] under Dr. Cobian's care. Informed consent for the transfer was given by patient and step-mom. Patient is stable for transferat this time. See transfer documents for further details. 5:46 PM: UDS positive for cannabinoids. Medical Decision Making Differential Diagnosis: Medical Decision Making I have reviewed the: Previous Chart, Nursing Notes, Vitals. I have interpreted the following results: Labs, Oxygen Saturation. I have discussed the case with Other (Central Intake), Family/Caregiver. The total time providing critical care (excluding time spent for procedures) was: 0 minutes. Clinical Impression and Disposition Final Diagnosis: Final diagnoses: Depressed mood Suicidal ideations Urinary tract infection without hematuria, site unspecified Diagnosis: Encounter Diagnoses Name Primary? Depressed mood ??? Suicidal ideations ??? Urinary tract infection without hematuria, site unspecified Disposition: Transfer to [facility] 04/09/2019 5:11 PM Scribe Attestation By signing my name below, I, Dilcia Shahid, attest that this documentation has been prepared underthe direction and in the presence of Dr. Marcano Electronically Signed: Dilcia Shahid 04/09/2019 1:47 PM Provider Attestation I, Dr. Marcano, personally performed the services described in this documentation. All medical record entries made by the scribe were at my direction and in my presence. I have reviewed the chart and agree that the record reflects my personal performance and is accurate and complete. I have fully participated in the care of this patient. I have reviewed all pertinent clinical information availableto me during this encounter, including history, physical exam and plan. I have reviewed nursing notes, vital signs, available labs and radiographic studies. With respect to physicians in training andmid- level providers, I, Dr. Marcano, agree with the assessment and plan except if revised in my note. * Homer Mackenzie MD - 04/09/2019 1:44 PM CDT EMERGENCY DEPARTMENT 04/09/2019 Dear Doctor, We had the pleasure of caring for your patient, Daiana Spencer in our emergency department on 04/09/2019. A note from the provider(s) who cared for your patient is attached. Should you wish to access any laboratory results, please call . Should you wish to access any radiology results, please call , option 3. In addition, you can access patient information 24 hours a day, from any computer, through [employer], the online version of our electronic medical record. If you would like to use this service, please call Roopa Reese, Connectivity Coordinator, at . We appreciate the opportunity to care for your patients. If you would like additional information, please call the emergency department directly at . Sincerely, Homer Mackenzie MD Division of Emergency Medicine [facility], [place] [facility] [place] DESIGNATED EMERGENCY DEPARTMENT Provider contact with the patient: 04/09/2019 13:44 Daiana Spencer [id number] [facility] EMERGENCY DEPARTMENT History Chief Complaint Patient presents with ??? Depression Patient reports becoming upset this morning because she was getting ready for work and couldn't find her belt. Patient started crying and couldn't stop. Patient has thoughts to hurt herself by cutting herself with her wrists. Patient also having depression due to boyfriend moving to [place], sister moving to college, and other sister moved in with her mom. Patient denies wanting to kill herself but does think about it. Plan for suicide would be OD on pills. HPI 18 yo F presents for eval of depressed mood and SI. Pt has had depressed mood for ~2 years. One of her sisters moved away with her mom and another moved to college. Friends keep befriending her &boyfriend moved away. Pt never seen anyone for this or talked to a physician for it. Has had thoughts of hurting herself but does not tell me what kind of thoughts. Told nurse thoughts of cutting wrist and OD'ing on pills. Today had melt down and couldn't stop crying so family brought to ER. Suzie is still having active SI. No past suicide attempts. Concerned she may have a UTI. No hx of UTIs. Has had frequency and burning with urination for ~5 days. No vaginal d/c or bleeding. +sexual activity. No fevers, abdominal pain, or vomiting. No past medical history on file. No past surgical history on file. Social History Social History ??? Marital status: N/A Spouse name: N/A ??? Number of children: N/A ??? Years of education: N/A Occupational History ??? Not on file. Social History Main Topics ??? Smoking status: Never Smoker ??? Smokeless tobacco: Never Used ??? Alcohol use No ??? Drug use: Yes Special: Marijuana ??? Sexual activity: Not on file Other Topics Concern ??? Not on file Social History Narrative ??? No narrative on file Medications Current Outpatient Prescriptions Medication Sig Dispense Refill ??? Norgestim-Eth Estrad Triphasic (TRI-SPRINTEC PO) Review of Systems Review of Systems Constitutional: Negative for chills and fever. HENT: Negative for congestion. Respiratory: Negative for shortness of breath. Gastrointestinal: Negative for abdominal pain, constipation, diarrhea, nausea and vomiting. Genitourinary: Positive for dysuria, frequency and urgency. Negative for hematuria, vaginal bleeding and vaginal discharge. Musculoskeletal: Negative for back pain. Skin: Negative for rash. Neurological: Negative for headaches. Psychiatric/Behavioral: Hpi LMP 04/06/2019 (Exact Date) ? No Physical Exam Physical Exam Constitutional: She appears well-developed and well-nourished. No distress. HENT: Head: Normocephalic and atraumatic. Eyes: Conjunctivae are normal. Neck: Neck supple. Cardiovascular: RRR Pulmonary/Chest: CTAB Abdominal: Soft. She exhibits no distension. There is no tenderness. There is no guarding. Neurological: She is alert. Skin: Skin is warm and dry. Psychiatric: Distant, flat affect, +SI Nursing note and vitals reviewed. Procedures Procedures ECG Interpretation ECG Interpretation Lab/SPO2 Interpretation Progress Notes ED Course ED Course Medical Decision Making CDx: depressed mood, suicidal ideations, dysuria, urinary frequency Plan: Possible UTI, will get UA/Cx. Given mood symptoms & SI will also obtain behavioral healtheval. UA consistent with UTI, will rx with Abx, cultures sent. Pt updated. Central intake evaluated pt, plan to admit when bed available. Pt is medically cleared for admission. Clinical Impression Final diagnoses: Depressed mood Suicidal ideations Urinary tract infection without hematuria, site unspecified documented in this encounter Plan of Treatment Not on file documented as of this encounter Procedures Procedure Name Priority Date/Time Associated Diagnosis Comments HCG URINE QUALITATIVE - POCT (IP) INTERFACED Routine 04/09/2019 3:02 PM CDT URINALYSIS W/MICROSCOPIC NO CULTURE STAT 04/09/2019 2:47 PM CDT CULTURE URINE STAT 04/09/2019 2:47 PM CDT URINE DRUG SCREEN IMMUNOASSAY STAT 04/09/2019 2:47 PM CDT HCG URINE QUAL POCT NOTIFICATION STAT 04/09/2019 2:27 PM CDT documented in this encounter Results * HCG URINE QUALITATIVE - POCT (IP) INTERFACED (04/09/2019 3:02 PM CDT) HCG Qual Urine Negative Negative 04/09/2019 2:54 PM CDT [facility] Urine URINE / Unknown 04/09/2019 3 :02 PM CDT 04/09/2019 2:54 PM CDT Kumar Marcano MD LAB - POINT OF CARE ORDERABLES [facility] [place] [address] * (ABNORMAL) DRUG SCREEN TOX URINE PANEL (04/09/2019 2:47 PM CDT) [facility] Amphetamines Screen Urine Not Detected Not Detected 04/09/2019 5:46 PM CDT [facility] Barbiturates Screen Urine Not Detected Not Detected 04/09/2019 5:46 PM CDT [facility] Benzodiazepines Screen Urine Not Detected Not Detected 04/09/2019 5:46 PM CDT [facility] Cannabinoids Screen Urine Detected(AA ) Not Detected 04/09/2019 5:46 PM CDT [facility] Cocaine Screen Urine Not Detected Not Detected 04/09/2019 5:46 PM CDT [facility] Methadone Screen Urine Not Detected Not Detected 04/09/2019 5:46 PM CDT [facility] Opiate Screen Urine Not Detected Not Detected 04/09/2019 5:46 PM CDT [facility] Phencyclidine Screen Urine Not Detected Not Detected 04/09/2019 5:46 PM CDT [facility] Urine URINE / Unknown 04/09/2019 2 :47 PM CDT 04/09/2019 5:24 PM CDT Narrative [facility] - 04/09/2019 5:46 PM CDT [...] MD LAB - URINE CHEMISTR Y ORDERABLES [facility] [address] [facility] [address] * CULTURE URINE (04/09/2019 2:47 PM CDT) [facility] Culture Urine 10,000-50,000 CFU/mL urogenital hansa DYLAN 04/11/2019 10:23 AM CDT [facility] Urine URINE SPECIMEN OBTAINED BY CLEAN CATCH PROCEDURE / Unknown Collection / Unknown 04/09/2019 2:47 PM CDT 04/09/2019 3:30 PM CDT Homer Mackenzie MD LAB - MICROBI OLOGY ORDERABLES [facility] [address] [place] [address], [facility] [phone] * (ABNORMAL) URINALYSIS W/MICROSCOPIC NO CULTURE (04/09/2019 2:47 PM CDT) Color UA Ctilali(A) Straw, Yellow 04/09/2019 3:05 PM [facility] Clarity UA Clear Clear 04/09/2019 3:05 PM [facility] Glucose UA Negative Negative 04/09/2019 3:05 PM [facility] Bilirubin UA Negative Negative 04/09/2019 3:05 PM [facility] Ketone UA Negative Negative 04/09/2019 3:05 PM [facility] Specific [place] UA 1.025 1.005 - 1.030 04/09/2019 3:05 PM [facility] Blood UA 1+(A) Negative 04/09/2019 3:05 PM [facility] pH UA 6.0 5.0 - 8.0 pH 04/09/2019 3:05 PM [facility] Protein UA 1+(A) Negative 04/09/2019 3:05 PM [facility] Urobilinogen UA 2.0(A) Negative mg/dL 04/09/2019 3:05 PM [facility] Nitrite UA Positive(A) Negative 04/09/2019 3:05 PM [facility] Leukocyte UA Negative Negative 04/09/2019 3:05 PM [facility] RBC UA 11-20(A) None Seen, 0-2, 3-5 # /hpf 04/09/2019 3:05 PM [facility] WBC UA 21-50(A) None Seen, 0-5 # /hpf 04/09/2019 3:05 PM [facility] Bacteria UA Trace(A) None Seen 04/09/2019 3:05 PM CDT [facility] Squamous Epithelial Cells 0-2 None Seen, 0-2, 3-5 /hpf 04/09/2019 3:05 PM CDT [facility] Mucus UA 3+ /LPF 04/09/2019 3:05 PM CDT [facility] Urine URINE SPECIMEN OBTAINED BY CLEAN CATCH PROCEDURE / Unknown Collection / Unknown 04/09/2019 2:47 PM CDT 04/09/2019 2:59 PM CDT Narrative [facility] - 04/09/2019 3:05 PM CDT Homer Mackenzie MD LAB - URINALY SIS ORDERABLES Performing Organization Address City/[facility]/ZIP Co de Phone Number [facility] [address] [place] [address] * HCG URINE QUAL POCT NOTIFICATION (04/09/2019 2:27 PM CDT) Comment Notification Label Only - See Separate Report 04/09/2019 3:30 PM CDT [facility] Urine URINE / Unknown 04/09/2019 2 :27 PM CDT 04/09/2019 2:27 PM CDT Homer Mackenzie MD LAB - URINALY SIS ORDERABLES Performing Organization Address [facility] de Phone Number [facility] [address] [place] [phone] documented in this encounter Visit Diagnoses Diagnosis Depressed mood Suicidal ideations Suicidal ideation Urinary tract infection without hematuria, site unspecified documented in this encounter Administered Medications Inactive Administered Medications - up to 3 most recent administrations Medication Order MAR Action Action Date Dose Rate Site ciprofloxacin (CIPRO) tablet 250 mg 250 mg (5.12 mg/kg), Oral, EVERY 12 HOURS, 10 doses, First dose on 04/09/19 at 1700, Last dose on Wed04/14/19 at 0900, Take with or without food, do not take with demetrio, yogurt or calcium-fortified juice., Indication for anti-infective therapy: Suspected infection, Site of anti-infective therapy: Urine/Genitourinary $ Given 04/09/2019 4:46 PM CDT 250 mg documented in this encounter Active and Recently Administered Medications Times are shown in CDT. Scheduled Medication Order 04/07/2019 04/08/2019 04/09/2019 ciprofloxacin (CIPRO) tablet 250 mg 250 mg (5.12 mg/kg), Oral, EVERY 12 HOURS, 10 doses, First dose on 04/09/19 at 1700, Last dose on Wed04/14/19 at 0900, Take with or without food, do not take with demetrio, yogurt or calcium-fortified juice., Indication for anti-infective therapy: Suspected infection, Site of anti-infective therapy: Urine/Genitourinary 1646 ($ Given - Prov ider: Norma Anthony RN) documented in this encounter Care Teams Pig Machine Supervisor Relationship Specialty Start Date End Date Yumiko Jones MD [address] [place] [id number] PCP - General Pediatrics 04/09/19 documented as of this encounter
--- OUTSIDE RECORDS SUMMARY | 2024-12-02 14:17 | XMS_ITS | Clinical Summary ---
Author Organization [facility] Address [address] [facility] [place] [address] Care Team Providers Care Surgical Instruments Inspector Name Role Phone Yumiko Jones MD Primary Care Provider [phone] Source Comments [facility],non-[facility] Affiliates and Associated Physician Practices is amultiple site organization consisting of ambulatory clinics and hospital sitesin [place], [place], [place] and [place]. This disclosure is being madepursuant to the Care Everywhere program and may not contain all information available regarding this patient. Last updated 18.[facility] [employer] Allergies No known active allergies Medications * [...] Mass Index 17.82 04/09/2019 7:05 PM CDT Plan of Treatment Health Maintenance Due Date Last Done Comments PAP SMEAR 2002 HIV SCREENING 2017 HPV VACCINE (1 - 3-dose series) 2017 CHLAMYDIA/GONORRHEA SCREENING 04/10/2020 04/10/2019 HEPATITIS C SCREENING 06/02/2020 DTAP/TDAP/TD VACCINES (1 - Tdap) 2021 HEPATITIS B VACCINE (1 of 3 - 19+ 3-dose series) 2021 DEPRESSION SCREENING 11/29/2023 COVID-19 VACCINE (1 - 2023-2 5 season) 2024 INFLUENZA VACCINE (#1) 2024 ZOSTER VACCINE (1 of 2) 2052 HIB VACCINE Aged Out No longer eligi ble based on patient's age to complete this topic MENINGOCOCCAL VACCINE Aged Out No mp chris eligible based on patient's age to complete this topic PNEUMOCOCCAL VACCINE Aged Out No long er eligible based on patient's age to complete this topic Procedures Procedure Name Priority Date/Time Associated Diagnosis Comments CHLAMYDIA + GC AMPLIFIED PROBE Routine 04/10/2019 1:41 PM CDT from Last 3 Months or Most Recently Relevant to Health Maintenance Results * (ABNORMAL) CHLAMYDIA + GC AMPLIFIED PROBE (04/10/2019 1:41 PM CDT) Chlamydia Amplified Probe Positive(A) Negative 04/11/2019 8:05 AM CDT [facility] GC Amplified Probe Negative Negative 04/11/2019 8:05 AM CDT [facility] Microbiology URINE / Unknown Collection / Unknown 04/10/2019 1:41 PM CDT 04/10/2019 1:57 PM CDT Narrative [facility] - 04/11/2019 8:05 AM CDT Results based on detection/no detection of ribosomal RNA by amplified method. Boy De Santiago MD LAB - MICROBIOLOGY ORDERABLES [facility] MICROBIOLOG[facility] [address] [place] [address], [facility] [phone] from Last 3 Months or Most Recently Relevant to Health Maintenance Advance Directives * Full Code (Latest Code Status on File) Date Activated Date Inactivated Comments 04/09/2019 8:31 PM 04/14/2019 11:19 AM Care Teams Surgical Instruments Inspector Relationship Specialty Start Date End Date Yumiko Jones MD [address] [place] [address] [address] [place] [address] PCP - General Pediatrics 04/09/19
--- OUTSIDE RECORDS SUMMARY | 2024-12-02 14:37 | XMS_ITS | Clinical Summary ---
Author Organization [facility] Address [address] [facility] [place] [address] Care Team Providers Care Administrative Assistant Data Entry Name Role Phone Yumiko Jones MD Primary Care Provider [phone] Source Comments [facility],non-[facility] Affiliates and Associated Physician Practices is amultiple site organization consisting of ambulatory clinics and hospital sitesin [place], [place], [place] and [place]. This disclosure is being madepursuant to the Care Everywhere program and may not contain all information available regarding this patient. Last updated 18.[facility] [employer] Allergies No known active allergies Medications * [...] Positive(A) Negative 04/11/2019 8:05 AM CDT [facility] GC Amplified Probe Negative Negative 04/11/2019 8:05 AM CDT [facility]CRO[facility] Microbiology URINE / Unknown Collection / Unknown 04/10/2019 1:41 PM CDT 04/10/2019 1:57 PM CDT Narrative [facility] - 04/11/2019 8:05 AM CDT Results based on detection/no detection of ribosomal RNA by amplified method. Boy De Santiago MD LAB - MICROBIOLOGY ORDERABLES [facility] MICRO[facility] [address] [place] [address], [facility] [phone] from Last 3 Months or Most Recently Relevant to Health Maintenance Advance Directives * Full Code (Latest Code Status on File) Date Activated Date Inactivated Comments 04/09/2019 8:31 PM 04/14/2019 11:19 AM Care Teams Administrative Assistant Data Entry Relationship Specialty Start Date End Date Yumiko Jones MD [address] [place] [address] [address] [place] [address] PCP - General Pediatrics 04/09/19
--- OUTSIDE RECORDS SUMMARY | 2024-12-02 14:37 | XMS_ITS | Patient Health Summary ---
Author Organization [facility] Address [address] [place] [address] Care Team Providers Care Piece Goods Clerk Name Role Phone Yumiko Jones MD Primary Care Provider Note from [facility],non-owned Affiliates and Associated Physician Practices is amultiple site organization consisting of ambulatory clinics and hospital sitesin [place], [place], [place]. This disclosure is being madepursuant to the Care Everywhere program and may not contain all information available regarding this patient. Last updated 18.[facility] Allergies No known active allergies Medications [...] Probe Positive(A) Negative 04/11/2019 8:05 AM CDT [facility] GC Amplified Probe Negative Negative 04/11/2019 8:05 AM CDT [facility] Microbiology URINE / Unknown Collection / Unknown 04/10/2019 1:41 PM CDT 04/10/2019 1:57 PM CDT Narrative [facility]CRO[facility] - 04/11/2019 8:05 AM CDT Results based on detection/no detection of ribosomal RNA by amplified method. Boy De Santiago MD LAB - MICROBIOLOGY ORDERABLES [facility] [address] [place] [address], [facility] [phone] * TSH REFLEX FREE T4 (04/10/2019 6:23 AM CDT) TSH 1.1363 0.35 - 4.94 ulU/mL 04/10/2019 7:32 AM CDT [facility] Blood BLOOD SPECIMEN / Unknown Venipuncture / Unknown 04/10/2019 6:23 AM CDT 04/10/2019 6:34 AM CDT Frieda Morris FICTION AND NONFICTION AUTHOR-SWINGING CUT OFF SAW OPERATOR LAB - CHEMISTRY O RDERABLES Performing Organization Address [facility] Co de Phone Number [facility] [id number] [place] [address] * HEMOGLOBIN A1C (04/10/2019 6:23 AM CDT) Pathologist [facility] Hemoglobin A1c 4.8 4.0 - 6.1 % 04/10/2019 7:23 AM CDT [facility] Estimated Average Glucose 91 mg/dL 04/10/2019 7:23 AM CDT [facility] Blood BLOOD SPECIMEN / Unknown Venipuncture / Unknown 04/10/2019 6:23 AM CDT 04/10/2019 6:34 AM CDT Narrative [facility] - 04/10/2019 7:23 AM CDT Attention clinician: ??Reference Range has changed. Frieda Morris FICTION AND NONFICTION AUTHOR-SWINGING CUT OFF SAW OPERATOR LAB - CHEMISTRY O RDERABLES Performing Organization Address [facility] Co de Phone Number [facility] [address] [place] [address] * CBC W AUTO DIFFERENTIAL (04/10/2019 6:23 AM CDT) WBC 5.5 4.5 - 14.5 x10E9/L 04/10/2019 6:41 AM CDT [facility] WBC Corrected x10E9/L 04/10/2019 6:41 AM CDT [facility] RBC 4.32 4.10 - 5.10 x10E12/L 04/10/2019 6:41 AM CDT [facility] Hemoglobin 12.5 12.0 - 16.0 gm/dL [...] - 9.5 fl 04/10/2019 6:41 AM CDT [facility] Neutrophils % 32.6 24.0 - 66.0 % 04/10/2019 6:41 AM CDT [facility] Lymphocytes % 49.9 22.0 - 61.0 % 04/10/2019 6:41 AM CDT [facility] Monocytes % 9.0 3.0 - 15.0 % 04/10/2019 6:41 AM CDT [facility] Eosinophils % 7.2 0.0 - 10.0 % 04/10/2019 6:41 AM CDT [facility] Basophils % 1.1 % 04/10/2019 6:41 AM CDT [facility] Immature Granulocytes 0.2 % 04/10/2019 6:41 [...] - 0.29 x10E9/L 04/10/2019 6:41 AM CDT [facility] Immature Granulocytes Absolute 0.01 0 - 0.15 x10E9/L 04/10/2019 6:41 AM CDT [facility] nRBC Auto 0 /100 WBC 04/10/2019 6:41 AM T [facility] Blood BLOOD SPECIMEN / Unknown Venipuncture / Unknown 04/10/2019 6:23 AM CDT 04/10/2019 6:34 AM CDT Frieda Morris FICTION AND NONFICTION AUTHOR-SWINGING CUT OFF SAW OPERATOR LAB - HEMATOLOGY ORDERABLES [facility] [address] [place] [address] * COMPREHENSIVE METABOLIC PANEL (04/10/2019 6:23 AM CDT) Glucose 87 74 - 106 mg/dL 04/10/2019 7:[address] [facility] Sodium 139 136 - 145 mmol/L 04/10/2019 7:[address] [facility] Potassium 3.9 3.5 - 5.1 mmol/L 04/10/2019 7:08 AM T [facility] Chloride 105 98 - 107 mmol/L 04/10/2019 7:[address] [facility] CO2 25 20 - 28 mmol/L 04/10/2019 7:[address] [facility] Calcium 9.6 8.4 - 10.2 mg/dL 04/10/2019 7:[address] [facility] Anion Gap 9 8 - 16 mmol/L 04/10/2019 7:[address] [facility] Comment: Assay measuring below lower limits of linearity, calculated result not valid in this circumstance. BUN 12 7 - 18.7 mg/dL 04/10/2019 7:[address] [facility] Creatinine 1.00 0.55 - 1.02 mg/dL 04/10/2019 7:[address] [facility] Alkaline Phosphatase 40 40 - 150 U/L 04/10/2019 7:08 AM T [facility] ALT 14 13 - 61 U/L 04/10/2019 7:08 AM T [facility] AST 15 5 - 34 U/L 04/10/2019 7:08 AM CDT [facility] Protein Total 7.1 6.4 - 8.3 gm/dL 04/10/2019 7:08 AM CDT [facility] Albumin 4.1 3.4 - 5.0 gm/dL 04/10/2019 7:08 AM CDT [facility] Bilirubin Total 0.6 0.2 - 1.0 mg/dL 04/10/2019 7:08 AM CDT [facility] eGFR by MDRD mL/min/1.7 3m2 04/10/2019 7:08 AM CDT [facility] Comment: eGFR calculations are not performed for children under 18 years old. eGFR by MDRD mL/min/1.7 3m2 04/10/2019 7:08 AM CDT [facility] Comment: eGFR calculations are not performed for children under 18 years old. Blood BLOOD SPECIMEN / Unknown Venipuncture / Unknown 04/10/2019 6:23 AM CDT 04/10/2019 6:34 AM CDT Narrative [facility] - 04/10/2019 7:08 AM CDT Attention clinician: BUN Reference Range has changed. Frieda Morris FICTION AND NONFICTION AUTHOR-SWINGING CUT OFF SAW OPERATOR LAB - CHEMISTRY O RDERABLES [facility] [address] [place] [address] * (ABNORMAL) LIPID PROFILE (04/10/2019 6:23 AM CDT) Cholesterol 195 <200 mg/dL 04/10/2019 7:08 AM CDT [facility] Triglycerides 74 <150 mg/dL 04/10/2019 7:08 AM CDT [facility] HDL Cholesterol 53 >40 mg/dL 9 7:08 AM CDT [facility] LDL Calculated 127 <130 mg/dL 04/10/2019 7:08 AM CDT [facility] VLDL Calculated 15(L) >=30 mg/dL 9 7:08 AM CDT [facility] Chol HDL Ratio 3.7 <4.5 04/10/2019 7:08 AM CDT [facility] LDL/HDL Ratio 2.4 <5.0 04/10/2019 7:08 AM CDT [facility] Blood BLOOD SPECIMEN / Unknown Venipuncture / Unknown 04/10/2019 6:23 AM CDT 04/10/2019 6:34 AM CDT Frieda Morris APRN-SWINGING CUT OFF SAW OPERATOR LAB - CHEMISTRY O RDERABLES [facility] [address] [place] [address] * HCG URINE QUALITATIVE - POCT (IP) INTERFACED (04/09/2019 3:02 PM CDT) HCG Qual Urine Negative Negative 04/09/2019 2:54 PM CDT [facility] Urine URINE / Unknown 04/09/2019 3 :02 PM CDT 04/09/2019 2:54 PM CDT Kumar Marcano MD LAB - POINT OF CARE ORDERABLES Performing Organization Address City/[facility]/ZIP Co de Phone Number [facility] [place] [address] * (ABNORMAL) URINALYSIS W/MICROSCOPIC NO CULTURE (04/09/2019 2:47 PM CDT) Color UA Citlali(A) Straw, Yellow 04/09/2019 3:05 PM T [facility] Clarity UA Clear Clear 04/09/2019 3:05 PM T [facility] Glucose UA Negative Negative 04/09/2019 3:05 PM T [facility] Bilirubin UA Negative Negative 04/09/2019 3:05 PM T [facility] Ketone UA Negative Negative 04/09/2019 3:05 PM T [facility] Specific [place] UA 1.025 1.005 - 1.030 04/09/2019 3:05 PM T [facility] Blood UA 1+(A) Negative 04/09/2019 3:05 PM T [facility] pH UA 6.0 5.0 - 8.0 pH 04/09/2019 3:05 PM T [facility] Protein UA 1+(A) Negative 04/09/2019 3:05 PM T [facility] Urobilinogen UA 2.0(A) Negative mg/dL 04/09/2019 3:05 PM CDT [facility] Nitrite UA Positive(A) Negative 04/09/2019 3:05 PM CDT [facility] Leukocyte UA Negative Negative 04/09/2019 3:05 PM CDT [facility] RBC UA 11-20(A) None Seen, 0-2, 3-5 # /hpf 04/09/2019 3:05 PM CDT [facility] WBC UA 21-50(A) None Seen, 0-5 # /hpf 04/09/2019 3:05 PM CDT [facility] Bacteria UA Trace(A) None Seen 04/09/2019 3:05 PM CDT [facility] Squamous Epithelial Cells 0-2 None Seen, 0-2, 3-5 /hpf 04/09/2019 3:05 PM CDT [facility] Mucus UA 3+ /LPF 04/09/2019 3:05 PM CDT [facility] Urine URINE SPECIMEN OBTAINED BY CLEAN CATCH PROCEDURE / Unknown Collection / Unknown 04/09/2019 2:47 PM CDT 04/09/2019 2:59 PM CDT Narrative [facility] - 04/09/2019 3:05 PM CDT Homer Mackenzie MD LAB - URINALY SIS ORDERABLES Performing Organization Address City/[facility]/ZIP Co de Phone Number [facility] [place] [address] * CULTURE URINE (04/09/2019 2:47 PM CDT) Culture Urine 10,000-50,000 CFU/mL urogenital hansa DYLAN 04/11/2019 10:23 AM CDT [facility] Urine URINE SPECIMEN OBTAINED BY CLEAN CATCH PROCEDURE / Unknown Collection / Unknown 04/09/2019 2:47 PM CDT 04/09/2019 3:30 PM CDT Homer Mackenzie MD LAB - MICROBI OLOGY ORDERABLES [facility] [address] [place] [address] [phone] * (ABNORMAL) DRUG SCREEN TOX URINE PANEL (04/09/2019 2:47 PM CDT) Pathologist [facility] Amphetamines Screen Urine Not Detected Not Detected 04/09/2019 5:46 PM CDT [facility] Barbiturates Screen Urine Not Detected Not Detected 04/09/2019 5:46 PM CDT [facility] Benzodiazepines Screen Urine Not Detected Not Detected 04/09/2019 5:46 PM CDT [facility] Cannabinoids Screen Urine Detected(AA ) Not Detected 04/09/2019 5:46 PM CDT [facility] Cocaine Screen Urine Not Detected Not Detected 04/09/2019 5:46 PM CDT [facility] Methadone Screen Urine Not Detected Not Detected 04/09/2019 5:46 PM CDT [facility] Opiate Screen Urine Not Detected Not Detected 04/09/2019 5:46 PM CDT [facility] Phencyclidine Screen Urine Not Detected Not Detected 04/09/2019 5:46 PM CDT [facility] Urine URINE / Unknown 04/09/2019 2 :47 PM CDT 04/09/2019 5:24 PM CDT Narrative [facility] - 04/09/2019 5:46 PM CDT This [...] MD LAB - URINE CHEMISTR Y ORDERABLES [facility] [address] [place] [address] * HCG URINE QUAL POCT NOTIFICATION (04/09/2019 2:27 PM CDT) Pathologist [facility] Comment Notification Label Only - See Separate Report 04/09/2019 3:30 PM CDT [facility] Urine URINE / Unknown 04/09/2019 2 :27 PM CDT 04/09/2019 2:27 PM CDT Homer Mackenzie MD LAB - URINALY SIS ORDERABLES [facility] [place] [address] Care Teams Piece Goods Clerk Relationship Specialty Start Date End Date Yumiko Jones MD [address] [place] [address] PCP - General Pediatrics 04/09/19
--- OUTSIDE RECORDS SUMMARY | 2024-12-02 14:37 | XMS_ITS | Referral Summary ---
Author Organization [facility] Address [address] [place] [address] Care Team Providers Care Welder Fitter Apprentice Name Role Phone Yumiko Jones MD Primary Care Provider Source Comments [facility],non-[facility] Affiliates and Associated Physician Practices is amultiple site organization consisting of ambulatory clinics and hospital sitesin [place], [place], [place] and [place]. This disclosure is being madepursuant to the Care Everywhere program and may not contain all information available regarding this patient. Last updated 18.[facility] Allergies No known active [...] Probe Positive(A) Negative 04/11/2019 8:05 AM CDT [facility] GC Amplified Probe Negative Negative 04/11/2019 8:05 AM CDT [facility] Microbiology URINE / Unknown Collection / Unknown 04/10/2019 1:41 PM CDT 04/10/2019 1:57 PM CDT Narrative [facility] - 04/11/2019 8:05 AM CDT Results based on detection/no detection of ribosomal RNA by amplified method. Boy De Santiago MD LAB - MICROBIOLOGY ORDERABLES [facility] [address] [place] [address], [facility] [phone] from Last 3 Months or Most Recently Relevant to Health Maintenance Advance Directives * Full Code (Latest Code Status on File) Date Activated Date Inactivated Comments 04/09/2019 8:31 PM 04/14/2019 11:19 AM Care Teams Welder Fitter Apprentice Relationship Specialty Start Date End Date Yumiko Jones MD [address] [place] [address] [address] [place] [address] PCP - General Pediatrics 04/09/19
--- OUTSIDE RECORDS SUMMARY | 2024-12-02 14:38 | XMS_ITS | Encounter Summary ---
Author Organization [facility] Address [facility] [place] [address] Care Team Providers Care Sand Molder Name Role Phone Yumiko Jones MD Primary Care Provider [phone] Reason for Visit * Reason Onset Date Comments Referral 10/30/2021 Encounter Details Date Type Department Care Team (Late st Contact Info) Description 10/30/2021 Telephone [facility] Medical [facility] - Rheumatology [address], [address] [place] [address] Yaritza Steven MD [facility] [place] [address] Referral Social History Tobacco Use [...] patient to contact the office to schedule BLUE LINE TRIMMER appointment with Dr. Steven. Called referral x3 on both numbers listed in file. No further calls will be made but if patient contacts the office can be scheduled for the soonest BLUE LINE TRIMMER appointment. RAL GAS TREATING UNIT OPERATOR * Telephone Encounter - Eugene Kaufman RN - 10/31/2021 10:35 AM CST Received a fax for the patient to be seen by Rheumatology. LMOR for patient to contact the office to schedule BLUE LINE TRIMMER appointment with Dr. Steven. Called referral x2 RAL GAS TREATING UNIT OPERATOR * Telephone Encounter - Eugene Kaufman RN - 10/30/2021 4:14 PM CST Received a fax for the patient to be seen by Rheumatology. LMOR for patient to contact the office to schedule BLUE LINE TRIMMER appointment with Dr. Steven. Called referral x1 RAL GAS TREATING UNIT OPERATOR documented in this encounter Plan of Treatment Not on file documented as of this encounter Visit Diagnoses Not on filedocumented in this encounter Care Teams Sand Molder Relationship Specialty Start Date End Date Yumiko Jones MD [address] [place] [id number] PCP - General Pediatrics 04/09/19 documented as of this encounter
--- OUTSIDE RECORDS SUMMARY | 2024-12-02 14:38 | XMS_ITS | Encounter Summary ---
Author Organization [facility] Address [address] [place] [address] Care Team Providers Care Hose Operator Name Role Phone Yumiko Jones MD Primary [...] Expiration Date Visits Re quested Visits Authorized [id number] 1 1 Encounter Details Date Type Department Care Team (Late st Contact Info) Description 04/09/2019 1:23 PM CDT - 04/09/2019 6:22 PM CDT Emergency ER at [address] [address] Kumar Marcano MD [address] [place] [id number] Depressed mood; Suicidal ideations; Urinary tract infection [...] Growth Chart: [facility] (Girls, 2- 20 Years) documented in [...] INTAKE CONSULTATION WITH NURSE PRACTITIONER (revised 6-21-18) Daaina Spencer 18 year old 04/09/2019 [facility] EMERGENCY DEPARTMENT Place service provided to Patient : CG ED Case discussed with central recycling attendant Estela and chart reviewed. Who brought the [...] Physician: OPAL Green Discussed case with: Stefani CroweAgricultural Research Technician Hospital / Unit: [facility] Room:[facility] Phone number for Unit: [phone] Patient's current location: [facility] Report information for Behavioral Health Unit: Nurse Name: Norma Nurse contact number: [phone] Guardian and Consents: Current Residence of Patient Private Guardian name/relationship, if applicable (Parent /DFS/DJO/Foster):Mother: Jody Escoto Guardian contact #: [phone] Was guardianship verified Yes If so how? [...] will use the metal piece of a urban anthropologist to scratch herself on her forearm and [...] cutting with fingernails or metal piece of urban anthropologist. ?? Ask questions that are in bold [...] cutting with fingernails or metal piece of urban anthropologist. Past Month: Yes 2) Suicidal Thoughts: General [...] cutting with fingernails or metal piece of urban anthropologist. Past Month: Yes If YES to 2, [...] orcutting with fingernails or metal piece of urban anthropologist. hinking about how you might do this? [...] cutting with fingernails or metal piece of urban anthropologist. Past Month: No 5) Suicide Intent with [...] cutting with fingernails or metal piece of urban anthropologist. Past Month: No 6) Suicide Behavior Question [...] cutting with fingernails or metal piece of urban anthropologist. Lifetime: No Past 3 Months: No Response [...] lives with mother, father, brother Work/education:11 th [employer] Assets/supports: mother ?? Legal Issues: [...] admission information). All verbalized understanding. ?? The Ravalli Scale, shows that based on patient's presentation they currently warrant a medium riskof self harm, this has been provided to OPAL Green (Psychiatric Provider) and ED Physician along with LOI Green ED Registered Nurse. Additional Information if disposition is for admission: Patient will be admitted under the care of Dr. Cobian (Psychiatric Provider). Central Shackler Estela called and discussed the case with Stefani [facility] Agricultural Research Technician at [facility] for appropriate bed placement. Provisional Diagnosis: ?? Major Depressive disorder, singe episode, severe F32.2 ?? Assessment Times: [id number] Notes: Initial contact with On-Call for Psychiatry at 1550 (Time) On-Call for Psychiatry provided disposition at 1553 (Time) Initial contact with Agricultural Research Technician at 1523 (Time) Agricultural Research Technician disposition at 1526 (Time) documented in this encounter ED Notes * Cady Cadet RN - 04/09/2019 5:38 PM CDT Called Reginald PARKINSON [phone]. * Norma Anthony RN - 04/09/2019 5:18 PM CDT Lab called to add UDS to UA. * Norma Anthony RN - 04/09/2019 3:06 PM CDT Patient on Skype with Central Machine Shop Specialist, Estela. * Norma Anthony RN - 04/09/2019 [...] contact with the patient: 04/09/2019 1:47 PM [facility] EMERGENCY DEPARTMENT Daiana Spencer [id number] History Chief Complaint Patient presents with ??? [...] by physician. I have read the resident/medical student/CASTING OPERATOR history. Unless appended by me below, I [...] Step-Mom. This morning she tried to find [employer] for work and had a meltdown. Step-Mom [...] all negative except as noted in resident/medical student/CASTING OPERATOR and attending HPI/ROS. Constitutional: No appetite change or fever +increased sleeping HENT: No congestion or rhinorrhea Respiratory: No cough or wheezing Cardiovascular: Negative GI: No abdominal pain, diarrhea, nausea or vomiting : No decreased urine output +frequency, +dysuria MS: Negative Neuro: +depression, +SI Skin: No rash or wounds All other systems negative except as noted above. Physical Exam I have reviewed the resident/medical student/CASTING OPERATOR physical exam. Unless appended by me below, [...] Negative Negative Ketone UA Negative Negative Specific [place] UA 1.025 1.005 - 1.030 Blood UA [...] 5:10 PM: A bed is available at [facility] under Dr. Cobian. Will check a UDS per their request and arrange transfer via ALS. 5:11 PM I have made arrangements to transfer the patient to [facility] under Dr. Cobian's care. Informed consent for [...] without hematuria, site unspecified Disposition: Transfer to [facility] 04/09/2019 5:11 PM Scribe Attestation By signing [...] hours a day, from any computer, through [facility], the online version of our electronic medical record. If you would like to use this service, please call Roopa Reese, Connectivity Coordinator, at . We appreciate the opportunity to care for your patients. If you would like additional information, please call the emergency department directly at . Sincerely, Homer Mackenzie MD Division of Emergency Medicine [facility], [facility] [place] DESIGNATED EMERGENCY DEPARTMENT Provider contact with the patient: 04/09/2019 13:44 Daiana Spencer [id number] [facility] EMERGENCY DEPARTMENT History Chief Complaint Patient [...] Urine Negative Negative 04/09/2019 2:54 PM CDT [facility] Urine URINE / Unknown 04/09/2019 3 :02 PM CDT 04/09/2019 2:54 PM CDT Kumar Marcano MD LAB - POINT OF CARE ORDERABLES [facility] [place] [address] * (ABNORMAL) DRUG SCREEN TOX URINE PANEL (04/09/2019 2:47 PM CDT) [facility] Amphetamines Screen Urine Not Detected Not Detected 04/09/2019 5:46 PM CDT [facility] Barbiturates Screen Urine Not Detected Not Detected 04/09/2019 5:46 PM CDT [facility] Benzodiazepines Screen Urine Not Detected Not Detected 04/09/2019 5:46 PM CDT [facility] Cannabinoids Screen Urine Detected(AA ) Not Detected 04/09/2019 5:46 PM CDT [facility] Cocaine Screen Urine Not Detected Not Detected 04/09/2019 5:46 PM CDT [facility] Methadone Screen Urine Not Detected Not Detected 04/09/2019 5:46 PM CDT [facility] Opiate Screen Urine Not Detected Not Detected 04/09/2019 5:46 PM CDT [facility] Phencyclidine Screen Urine Not Detected Not Detected 04/09/2019 5:46 PM CDT [facility] Urine URINE / Unknown 04/09/2019 2 :47 PM CDT 04/09/2019 5:24 PM CDT Narrative [facility] - 04/09/2019 5:46 PM CDT [...] MD LAB - URINE CHEMISTR Y ORDERABLES [facility] [address] [facility] [place] [address] * CULTURE URINE (04/09/2019 2:47 PM CDT) [facility] Culture Urine 10,000-50,000 CFU/mL urogenital hansa DYLAN 04/11/2019 10:23 AM CDT [facility] Urine URINE SPECIMEN OBTAINED BY CLEAN CATCH PROCEDURE / Unknown Collection / Unknown 04/09/2019 2:47 PM CDT 04/09/2019 3:30 PM CDT Homer Mackenzie MD LAB - MICROBI OLOGY ORDERABLES [facility] [address] [place] [address], [facility] [phone] * (ABNORMAL) URINALYSIS W/MICROSCOPIC NO CULTURE (04/09/2019 2:47 PM CDT) Color UA Citlali(A) Straw, Yellow 04/09/2019 3:05 PM [facility] Clarity UA Clear Clear 04/09/2019 3:05 PM [facility] Glucose UA Negative Negative 04/09/2019 3:05 PM [facility] Bilirubin UA Negative Negative 04/09/2019 3:05 PM [facility] Ketone UA Negative Negative 04/09/2019 3:05 PM [facility] Specific [place] UA 1.025 1.005 - 1.030 04/09/2019 3:05 PM [facility] Blood UA 1+(A) Negative 04/09/2019 3:05 PM [facility] pH UA 6.0 5.0 - 8.0 pH 04/09/2019 3:05 PM [facility] Protein UA 1+(A) Negative 04/09/2019 3:05 PM [facility] Urobilinogen UA 2.0(A) Negative mg/dL 04/09/2019 3:05 PM [facility] Nitrite UA Positive(A) Negative 04/09/2019 3:05 PM [facility] Leukocyte UA Negative Negative 04/09/2019 3:05 PM [facility] RBC UA 11-20(A) None Seen, 0-2, 3-5 # /hpf 04/09/2019 3:05 PM [facility] WBC UA 21-50(A) None Seen, 0-5 # /hpf 04/09/2019 3:05 PM [facility] Bacteria UA Trace(A) None Seen 04/09/2019 3:05 PM CDT [facility] Squamous Epithelial Cells 0-2 None Seen, 0-2, 3-5 /hpf 04/09/2019 3:05 PM CDT [facility] Mucus UA 3+ /LPF 04/09/2019 3:05 PM CDT [facility] Urine URINE SPECIMEN OBTAINED BY CLEAN CATCH PROCEDURE / Unknown Collection / Unknown 04/09/2019 2:47 PM CDT 04/09/2019 2:59 PM CDT Narrative [facility] - 04/09/2019 3:05 PM CDT Homer Mackenzie MD LAB - URINALY SIS ORDERABLES Performing Organization Address City/[facility]/ZIP Co de Phone Number [facility] [address] [place] [address] * HCG URINE QUAL POCT NOTIFICATION (04/09/2019 2:27 PM CDT) Comment Notification Label Only - See Separate Report 04/09/2019 3:30 PM CDT [facility] Urine URINE / Unknown 04/09/2019 2 :27 PM CDT 04/09/2019 2:27 PM CDT Homer Mackenzie MD LAB - URINALY SIS ORDERABLES Performing Organization Address [facility] de Phone Number [facility] [address] [place] [phone] documented in this encounter Visit Diagnoses Diagnosis [...] RN) documented in this encounter Care Teams Hose Operator Relationship Specialty Start Date End Date Yumiko Jones MD [address] [place] [id number] PCP - General Pediatrics 04/09/19 documented as of this encounter
== END 2024-11-25 10:58 | disposition left against medical advice (07) ==
LOC: ANHED 10:57
PROVIDERS: Emergency Provider Emergency Medicine
DX: Z53.21 Procedure and treatment not carried out due to patient leaving prior to being seen by health care provider (principal)
CPT/HCPCS: 99199; A4565

== ENCOUNTER 2024-11-25 11:20 | Emergency (ER) | payer BC, OTHER, SELFPAY ==
--- NOTE | ~2024-11-25 | CT_ITS ---
CT abdomen pelvis w con Ordering provider: Reese Adams MD History: 24 years Female with . RLQ pain . Comparison: None. Technique: CT abdomen and pelvis with IV and without oral contrast. Automated exposure control and it erative reconstruction technique were employed. The dose-length product was 183.58 mGy-cm. 100 mL Omn ipaque 350 was given IV. Findings: VISUALIZED LOWER CHEST: Normal. UPPER ABDOMINAL ORGANS: Liver: Normal. Gallbladder: Normal. Spleen: Normal. Stomach/duodenum: Normal. Pancreas: Slightly prominent pancreatic head. Possibility of hypodensity cannot be excluded. MRI eval uation advised. Adrenals: Normal. Kidneys: Normal. PELVIC ORGANS: The bladder is underfilled with slightly thickened wall. Evaluation for cystitis advis ed. Uterus: Normal. Left ovarian cyst is seen measuring 2 cm. Right ovarian follicles are seen with t he largest measures 1.7 cm. BOWEL AND MESENTERY: Colon: No evidence of diverticulitis. Fecal material is seen in the colon.Appendix is not demonstrate d. Small Bowel: Normal. No obstruction. Peritoneum/mesentery: No free air. Trace of free fluid seen in the right pelvis.. No mesenteric lymph adenopathy. RETROPERITONEUM: Normal aorta. No retroperitoneal lymphadenopathy. MUSCULOSKELETAL: Superficial soft tissues: The superficial soft tissues are normal. Bones: Normal spine. IMPRESSION: 1. No evidence of appendicitis, diverticulitis or intestinal obstruction. 2. Bilateral ovarian follicles with trace of fluid in the right side of the pelvis. 3. Underfilled urinary bladder with thickened wall. Evaluation for cystitis is advised. 4. Constipation. Reviewed, dictated and finalized at location A. [employer] IMPRESSION: 1. No evidence of appendicitis, diverticulitis or intestinal obstruction. 2. Bilateral ovarian follicles with trace of fluid in the right side of the pe lvis. 3. Underfilled urinary bladder with thickened wall. Evaluation for cystitis is advised. 4. Constipation.
[2024-11-25 11:51] VITALS: BP 130/81; PULSE 76; RESP 15; TEMP 36.9; O2SAT 100
[2024-11-25 13:58] LABS: Basophils Percent Auto 0.4 % (0.2-1.2); Eosinophils Absolute Auto 0.1 K/mm3 (0-0.3); Eosinophils Percent Auto 0.8 % (0-4.4); Hematocrit 36.5 % (37.0-47.0); Hemoglobin 12.6 g/dL (12.0-15.0); Immature Granulocyte Absolute 0.01 K/mm3 (0.00-0.031); Immature Granulocyte Percent A 0.1 % (0-0.5); Lymphocytes Absolute Auto 1.53 K/mm3 (0.9-3.2); Lymphocytes Percent Auto 20.2 % (18.3-44.2); Mean Corpuscular HGB Conc 34.5 g/dl (32-36); Mean Corpuscular Hemoglobin 30.9 pg (26-34); Mean Corpuscular Volume 89.5 fl (80-100); Mean Platelet Volume 9.3 fl (7.4-10.4); Monocytes Absolute Auto 0.5 K/mm3 (0.1-0.6); Neutrophils Absolute Auto 5.4 K/mm3 (1.3-6.7); Neutrophils Percent Auto 71.5 % (45.5-73.1); Platelet Count Result 261 k/mm3 (150-375); Red Blood Count 4.08 M/mm3 (4.2-5.4); Red Cell Distribution Width 12.1 % (11.5-14.5); White Blood Count 7.6 K/mm3 (4.5-10.0)
[2024-11-25 14:04] LABS: BEDSIDEPREGUCG Negative (Negative)
[2024-11-25 14:08] LABS: Alanine Aminotransferase 12 U/L (6-35); Albumin Level 4.4 g/dL (3.5-5.1); Alkaline Phosphatase 48 U/L (38-126); Anion Gap 4 mmol/L (4-12); Aspartate Amino Transferase 21 U/L (14-36); Bilirubin,Total 0.3 mg/dL (0.2-1.3); Blood Urea Nitrogen 10 mg/dL (7-17); Calcium 9.2 mg/dL (8.4-10.2); Carbon Dioxide 28 mmol/L (22-30); Chloride 107 mmol/L (98-107); Estimated CRCL calculation 78 ml/min; Estimated Glomerular Filt Rate > 60; Glucose 91 mg/dL (65-110); Lipase 130 U/L (23-300); Potassium 3.8 mmol/L (3.4-5.0); Sodium 139 mmol/L (137-145)
[2024-11-25 14:17] LABS: Add Urine Microscopic? YES; Appearance Urine Clear (Clear); Bacteria Urine None Seen /hpf; Bilirubin Urine Negative (Negative); Blood Urine Negative (Negative); Color Urine Yellow (Yellow); Glucose Urine UA Negative (Negative); Ketones Urine Negative (Negative); Leukocyte Esterase Ur 2+ LEU/UL (Negative); Nitrate Urine Negative (Negative); Non Pathogenic Casts 0-2; Protein Urine Negative (Negative); RBC Urine 0-2 /hpf (0-2); Specific Grav Ur 1.004 (1.001-1.035); Squamous Epithelial Cell Urine None Seen /hpf (Few); Urobilinogen Urine 0.2 mg/dL (<2.0); WBC Urine 21-50 /hpf (0-3); pH Urine 7.5 (5.0-9.0)
[2024-11-25 15:12] VITALS: BP 101/65; PULSE 76; RESP 18; O2SAT 100
[2024-11-25] MEDS: KETOROLAC 15 MG/ML VIAL (*BKC) IV PUSH (15:35)
[2024-11-25 16:35] VITALS: BP 114/65; PULSE 65; RESP 16; O2SAT 100
[2024-11-25 16:52] LABS: Influenza A QL RT-PCR Negative (Negative); Influenza B QL RT-PCR Negative (Negative); RSV RNA, RT-PCR Negative (Negative); SARS-CoV-2 RNA PCR Negative (Negative)
--- NOTE | 2024-11-25 18:00 | ED_ITS ---
HPI - General Adult General Chief complaint: Abdominal Pain Stated complaint: abd pain x4d Time Seen by Provider: 11/25/24 14:17 History of Present Illness HPI narrative: This is a 24-year-old female presenting with abdominal pain x4 days. Patient says that she has had a crampy abdominal pain that moves around. Sometimes on the left symptoms and will and at the right. It is worse at night. The pain comes and goes. She took Motrin last night and it helped. She has had nausea but no vomiting. Patient has been having diarrhea for several days. She has a history of ovarian cysts. Related Data Allergies Allergy/AdvReac Type Severity Reaction Status Date / Time No Known Allergies Allergy Verified 11/25/24 13:36 Exam 2 Narrative: APPEARANCE: No apparent distress. Head: atraumatic. EYES: EOMI, NOSE: Atraumatic NECK: Trachea midline RESPIRATORY: No increased rate of breathing clear to auscultation CARDIOVASCULAR: RRR, ABDOMINAL: nondistended, mild tenderness in the right lower quadrant, no guarding rebound, no psoas or obturator sign. MUSCULOSKELETAl: No obvious deformities NEURO: Alert. Moving 4/4 extremities SKIN:: Warm, dry. Normal color PSYCHIATRIC: Normal affect Course Vital Signs Vital signs: Vital Signs Temperature 98.5 F 11/25/24 11:51 Pulse Rate 76 11/25/24 11:51 Respiratory Rate 15 11/25/24 11:51 Blood Pressure 130/81 11/25/24 11:51 Pulse Oximetry 100 11/25/24 11:51 Oxygen Delivery Room Air 11/25/24 11:51 Temperature 98.5 F 11/25/24 11:51 Pulse Rate 65 11/25/24 16:35 Respiratory Rate 16 11/25/24 16:35 Blood Pressure 114/65 11/25/24 16:35 Pulse Oximetry 100 11/25/24 16:35 Oxygen Delivery Room Air 11/25/24 11:51 Medical Decision Making [facility] Narrative Medical decision making narrative: -Course: 24-year-old female presenting with crampy abdominal pain. CT abdomen pelvis showed some free fluid in the pelvis and multiple ovarian follicles. It is possible that her pain is due to a ruptured ovarian cyst. CT also showed a underdistended/ thickened bladder wall. UA showed 21-50 white blood cells and 2+ esterase without bacteria or nitrites. She denies any urinary frequency urgency or dysuria. We discussed treating for possible UTI but at this time she will hold off and follow up with primary care physician. Given symptoms time with infection return precautions. The patient received Toradol and all of her pain has resolved. She has stable vital signs and a normal abdominal exam. Her laboratory studies within normal limits except UA as discussed above. Patient declined the dicyclomine. Patient will be discharged w/ primary care f/u. -DDX includes but is not limited to: Ovarian cyst rupture, constipation, diarrheal illness, appendicitis, colitis, UTI -Interventions: Toradol -Shared decision making / Disposition: discharge Vital Signs Vital Signs: Vital Signs Temperature 98.5 F 11/25/24 11:51 Pulse Rate 76 11/25/24 11:51 Respiratory Rate 15 11/25/24 11:51 Blood Pressure 130/81 11/25/24 11:51 Pulse Oximetry 100 11/25/24 11:51 Oxygen Delivery Room Air 11/25/24 11:51 Temperature 98.5 F 11/25/24 11:51 Pulse Rate 65 11/25/24 16:35 Respiratory Rate 16 11/25/24 16:35 Blood Pressure 114/65 11/25/24 16:35 Pulse Oximetry 100 11/25/24 16:35 Oxygen Delivery Room Air 11/25/24 11:51 Lab Data 11/25/24 13:52 11/25/24 13:52 Labs: Lab Results 11/25/24 11/25/24 11/25/24 Range/Units 13:52 14:00 14:02 WBC 7.6 (4.5-10.0) K/mm3 RBC 4.08 L (4.2-5.4) M/mm3 Hgb 12.6 (12.0-15.0) g/dL Hct 36.5 L (37.0-47.0) % MCV 89.5 (80-100) fl MCH 30.9 (26-34) pg MCHC 34.5 (32-36) g/dl RDW 12.1 (11.5-14.5) % Plt Count 261 (150-375) k/mm3 MPV 9.3 (7.4-10.4) fl Immature Gran % (Auto) 0.1 (0-0.5) % Neut % (Auto) 71.5 (45.5-73.1) % Lymph % (Auto) 20.2 (18.3-44.2) % [place] % (Auto) 7.0 (2.6-8.5) % Eos % (Auto) 0.8 (0-4.4) % Baso % (Auto) 0.4 (0.2-1.2) % Lymph # (Auto) 1.53 (0.9-3.2) K/mm3 [place] # (Auto) 0.5 (0.1-0.6) K/mm3 Eos # (Auto) 0.1 (0-0.3) K/mm3 Baso # (Auto) 0.0 (0.0-0.1) K/mm3 Abs Immat Gran (auto) 0.01 (0.00-0.031) K/mm3 Absolute Neuts (auto) 5.4 (1.3-6.7) K/mm3 Absolute Nucleated RBC 0.000 (0.0-0.012) K/mm3 Nucleated RBC % 0.0 (0.0-0.2) % Sodium 139 (137-145) mmol/L Potassium 3.8 (3.4-5.0) mmol/L Chloride 107 (98-107) mmol/L Carbon Dioxide 28 (22-30) mmol/L Anion Gap 4 (4-12) mmol/L BUN 10 (7-17) mg/dL Creatinine 0.80 (0.7-1.0) mg/dL Estim Creat Clear Calc 78 ml/min Estimated GFR > 60 (59 - ) Glucose 91 (65-110) mg/dL Calcium 9.2 (8.4-10.2) mg/dL Total Bilirubin 0.3 (0.2-1.3) mg/dL AST 21 (14-36) U/L ALT 12 (6-35) U/L Alkaline Phosphatase 48 (38-126) U/L Total Protein 8.0 (6.3-8.2) g/dL Albumin 4.4 (3.5-5.1) g/dL Lipase 130 (23-300) U/L Urine Color Yellow (Yellow) Urine Appearance Clear (Clear) Urine pH 7.5 (5.0-9.0) Ur Specific [place] 1.004 (1.001-1.035) Urine Protein Negative (Negative) mg/dL Urine Glucose (UA) Negative (Negative) mg/dL Urine Ketones Negative (Negative) mg/dL Ur Blood (Man) Negative (Negative) Urine Nitrate Negative (Negative) Urine Bilirubin Negative (Negative) Urine Urobilinogen 0.2 (<2.0) mg/dL Leukocyte Esterase Rfl 2+ H (Negative) MAIRANN/UL Urine RBC 0-2 (0-2) /hpf Urine WBC 21-50 H (0-3) /hpf Ur Squamous Epith Cells None seen (Few) /hpf Urine Bacteria None seen /hpf Urine Casts 0-2 POC Urine HCG, Qual Negative (Negative) Influenza A (RT-PCR) (Negative) Influenza B (RT-PCR) (Negative) RSV (RT-PCR) (Negative) SARS-CoV-2 RNA (RT-PCR) (Negative) 11/25/24 Range/Units 16:09 WBC (4.5-10.0) K/mm3 RBC (4.2-5.4) M/mm3 Hgb (12.0-15.0) g/dL Hct (37.0-47.0) % MCV (80-100) fl MCH (26-34) pg MCHC (32-36) g/dl RDW (11.5-14.5) % Plt Count (150-375) k/mm3 MPV (7.4-10.4) fl Immature Gran % (Auto) (0-0.5) % Neut % (Auto) (45.5-73.1) % Lymph % (Auto) (18.3-44.2) % [place] % (Auto) (2.6-8.5) % Eos % (Auto) (0-4.4) % Baso % (Auto) (0.2-1.2) % Lymph # (Auto) (0.9-3.2) K/mm3 [place] # (Auto) (0.1-0.6) K/mm3 Eos # (Auto) (0-0.3) K/mm3 Baso # (Auto) (0.0-0.1) K/mm3 Abs Immat Gran (auto) (0.00-0.031) K/mm3 Absolute Neuts (auto) (1.3-6.7) K/mm3 Absolute Nucleated RBC (0.0-0.012) K/mm3 Nucleated RBC % (0.0-0.2) % Sodium (137-145) mmol/L Potassium (3.4-5.0) mmol/L Chloride (98-107) mmol/L Carbon Dioxide (22-30) mmol/L Anion Gap (4-12) mmol/L BUN (7-17) mg/dL Creatinine (0.7-1.0) mg/dL Estim Creat Clear Calc ml/min Estimated GFR (59 - ) Glucose (65-110) mg/dL Calcium (8.4-10.2) mg/dL Total Bilirubin (0.2-1.3) mg/dL AST (14-36) U/L ALT (6-35) U/L Alkaline Phosphatase (38-126) U/L Total Protein (6.3-8.2) g/dL Albumin (3.5-5.1) g/dL Lipase (23-300) U/L Urine Color (Yellow) Urine Appearance (Clear) Urine pH (5.0-9.0) Ur Specific [place] (1.001-1.035) Urine Protein (Negative) mg/dL Urine Glucose (UA) (Negative) mg/dL Urine Ketones (Negative) mg/dL Ur Blood (Man) (Negative) Urine Nitrate (Negative) Urine Bilirubin (Negative) Urine Urobilinogen (<2.0) mg/dL Leukocyte Esterase Rfl (Negative) MARIANN/UL Urine RBC (0-2) /hpf Urine WBC (0-3) /hpf Ur Squamous Epith Cells (Few) /hpf Urine Bacteria /hpf Urine Casts POC Urine HCG, Qual (Negative) Influenza A (RT-PCR) Negative (Negative) Influenza B (RT-PCR) Negative (Negative) RSV (RT-PCR) Negative (Negative) SARS-CoV-2 RNA (RT-PCR) Negative (Negative) Discharge Plan Discharge Clinical Impression: Abdominal pain Patient Disposition: Home, Self-Care Condition: Stable Instructions: Antibiotic Form, Abdominal Pain (ED) Additional Instructions: Plase take Motrin as needed for pain. Please follow-up with primary care physician. Your urine had some white blood cells which could be sign of infection. If you develop pain on urination, increased urinary urgency or frequency, or back pain please return to the ED for re-evaluation. Otherwise please follow-up your primary care physician for further management. Patient Language: Z[place]ian Follow-up/Referrals: PHYSICIAN NOT ON STAFF,NONSTAFF [Primary Care Provider] -
[2024-11-25 19:00] VITALS: BP 107/67; PULSE 86; RESP 17; O2SAT 100
--- OUTSIDE RECORDS SUMMARY | 2024-12-02 15:36 | XMS_ITS | Referral Summary ---
Author Organization [facility] Address [address] [place] [address] Care Team Providers Care Disease Control Inspector Name Role Phone Yumiko Jones MD Primary Care Provider Source Comments [facility] Affiliates and Associated Physician Practices is amultiple site organization consisting of ambulatory clinics and hospital sitesin [place], [place], [place] and [place]. This disclosure is being madepursuant to the Care Everywhere program and may not contain all information available regarding this patient. Last updated 18.[facility] Allergies No known active allergies Medications [...] Positive(A) Negative 04/11/2019 8:05 AM CDT [facility] GC Amplified Probe Negative Negative 04/11/2019 8:05 AM CDT [facility] Microbiology URINE / Unknown Collection / Unknown 04/10/2019 1:41 PM CDT 04/10/2019 1:57 PM CDT Narrative [facility] - 04/11/2019 8:05 AM CDT Results based on detection/no detection of ribosomal RNA by amplified method. Boy De Santiago MD LAB - MICROBIOLOGY ORDERABLES [facility] [address] [place] [address], [facility] [phone] from Last 3 Months or Most Recently Relevant to Health Maintenance Advance Directives * Full Code (Latest Code Status on File) Date Activated Date Inactivated Comments 04/09/2019 8:31 PM 04/14/2019 11:19 AM Care Teams Disease Control Inspector Relationship Specialty Start Date End Date Yumiko Jones MD [address] [place] [address] [address] [place] [address] PCP - General Pediatrics 04/09/19
--- OUTSIDE RECORDS SUMMARY | 2024-12-02 15:36 | XMS_ITS | Encounter Summary ---
Author Organization [facility] Address [address] [facility] [facility] [place] [address] Care Team Providers Care Poolroom Table Attendant Name Role Phone Yumiko Jones MD Primary Care Provider [phone] Reason for Visit * Reason Comments Depression Patient reports darrin alonzo upset this morning because she was getting ready for work and couldn't find her belt. Patient started crying and couldn't stop. Patient has thoughts to hurt herself by cutting herself with her wrists. Patient also having depression due to boyfriend moving to [place], sister moving to college, and other sister moved in with her mom. Patient denies wanting to kill herself but does think about it. Plan for suicide would be OD on pills. * Auth/Cert Specialty Diagnoses / Procedures Referred By Contac t Referred To Contact Referral ID Status Reason Start Date Expiration Date Visits Re quested Visits Authorized [id number] 1 1 Encounter Details Date Type Department Care Team (Late st Contact Info) Description 04/09/2019 1:23 PM CDT - 04/09/2019 6:22 PM CDT Emergency ER at [address] [address] Kumar Marcano MD [address] [place] [id number] Depressed mood; Suicidal ideations; Urinary tract infection [...] 04/09/2019 1:5 1 PM CDT Growth Chart: [facility] (Girls, 2- 20 Years) documented in [...] [birth year]) Daiana Spencer 18 year old 04/09/2019 [facility] EMERGENCY DEPARTMENT Place service provided to Patient : CG ED Case discussed with central paving bed maker Estela and chart reviewed. Who brought the [...] having depression due to boyfriend moving to [place], sister moving to college, and other sister [...] Physician: OPAL Green Discussed case with: Stefani CroweSuperintendent Sales [facility] / [facility]: [facility] Room:[facility] Phone number for Unit: [phone] Patient's current location: [facility] Report information for Behavioral Health Unit: Nurse Name: Norma Nurse contact number: [phone] Guardian and Consents: Current Residence of Patient Private Guardian name/relationship, if applicable (Parent /DFS/DJO/Foster):Mother: Jody Escoto Guardian contact #: [phone] Was guardianship verified Yes If so how? [...] will use the metal piece of a food porter to scratch herself on her forearm and last cut two weeks ago. The patientdenies HI and Hallucinations. The patient has had a few stressors over the past 2 years. The patient's boyfriend who was also herboyfriend moved to [place] two years ago and today decided that [...] cutting with fingernails or metal piece of food porter. ?? Ask questions that are in bold [...] cutting with fingernails or metal piece of food porter. Past Month: Yes 2) Suicidal Thoughts: General [...] cutting with fingernails or metal piece of food porter. Past Month: Yes If YES to 2, [...] orcutting with fingernails or metal piece of food porter. hinking about how you might do this? [...] cutting with fingernails or metal piece of food porter. Past Month: No 5) Suicide Intent with [...] cutting with fingernails or metal piece of food porter. Past Month: No 6) Suicide Behavior Question [...] cutting with fingernails or metal piece of food porter. Lifetime: No Past 3 Months: No Response [...] lives with mother, father, brother Work/education:11 th [employer] Assets/supports: mother ?? Legal Issues: Legal [...] admission information). All verbalized understanding. ?? The Scott Scale, shows that based on patient's presentation they currently warrant a medium riskof self harm, this has been provided to OPAL Green (Psychiatric Provider) and ED Physician along with LOI Green ED Registered Nurse. Additional Information if disposition is for admission: Patient will be admitted under the care of Dr. Cobian (Psychiatric Provider). Central Instructor Of Sociology Estela called and discussed the case with Stefani [facility] Superintendent [facility] at [facility] for appropriate bed placement. Provisional Diagnosis: ?? Major Depressive disorder, singe episode, severe F32.2 ?? Assessment Times: [id number] Notes: Initial contact with On-Call for Psychiatry at 1550 (Time) On-Call for Psychiatry provided disposition at 1553 (Time) Initial contact with Superintendent Sales at 1523 (Time) Superintendent Sales disposition at 1526 (Time) documented in this encounter ED Notes * Cady Cadet RN - 04/09/2019 5:38 PM CDT Called Reginald PARKINSON [phone]. * Norma Anthony RN - 04/09/2019 5:18 PM CDT Lab called to add UDS to UA. * Norma Anthony RN - 04/09/2019 3:06 PM CDT Patient on Skype with Central Intellectual Property Counsel, Estela. * Norma Anthony RN - 04/09/2019 [...] contact with the patient: 04/09/2019 1:[address] [facility] EMERGENCY DEPARTMENT Daiana Spencer [id number] History Chief Complaint Patient presents with ??? Depression Patient reports becoming upset this morning because she was getting ready for work and couldn't find her belt. Patient started crying and couldn't stop. Patient has thoughts to hurt herself by cutting herself with her wrists. Patient also having depression due to boyfriend moving to [place], sister moving to college, and other sister moved in with her mom. Patient denies wanting to kill herself but does think about it. Plan for suicide would be OD on pills. Chief complaint narrative was entered by triage nurse, not by physician. I have read the resident/medical student/IT APPLICATION DEVELOPMENT MANAGER history. Unless appended by me below, I [...] and crying more. Recently her boyfriend movedto [place] and she has not been taking it well per Step-Mom. This morning she tried to find [employer] for work and had a meltdown. Step-Mom [...] all negative except as noted in resident/medical student/IT APPLICATION DEVELOPMENT MANAGER and attending HPI/ROS. Constitutional: No appetite change or fever +increased sleeping HENT: No congestion or rhinorrhea Respiratory: No cough or wheezing Cardiovascular: Negative GI: No abdominal pain, diarrhea, nausea or vomiting : No decreased urine output +frequency, +dysuria MS: Negative Neuro: +depression, +SI Skin: No rash or wounds All other systems negative except as noted above. Physical Exam I have reviewed the resident/medical student/IT APPLICATION DEVELOPMENT MANAGER physical exam. Unless appended by me below, [...] Negative Negative Ketone UA Negative Negative Specific [place] UA 1.025 1.005 - 1.030 Blood UA [...] 5:10 PM: A bed is available at [facility] under Dr. Cobian. Will check a UDS per their request and arrange transfer via ALS. 5:11 PM I have made arrangements to transfer the patient to [facility] under Dr. Cobian's care. Informed consent [...] without hematuria, site unspecified Disposition: Transfer to [facility] 04/09/2019 5:11 PM Scribe Attestation By [...] hours a day, from any computer, through [email or web address], the online version of our electronic medical record. If you would like to use this service, please call Roopa Reese, Connectivity Coordinator, at . We appreciate the opportunity to care for your patients. If you would like additional information, please call the emergency department directly at . Sincerely, Homer Mackenzie MD Division of Emergency Medicine [facility], [place] [facility] [place] I DESIGNATED EMERGENCY DEPARTMENT Provider contact with the patient: 04/09/2019 13:[id number] [facility] EMERGENCY DEPARTMENT History Chief Complaint Patient presents with ??? Depression Patient reports becoming upset this morning because she was getting ready for work and couldn't find her belt. Patient started crying and couldn't stop. Patient has thoughts to hurt herself by cutting herself with her wrists. Patient also having depression due to boyfriend moving to [place], sister moving to college, and other sister [...] Urine Negative Negative 04/09/2019 2:54 PM CDT [facility] Urine URINE / Unknown 04/09/2019 3 :02 PM CDT 04/09/2019 2:54 PM CDT Kumar Marcano MD LAB - POINT OF CARE ORDERABLES [facility] [place] [address] * (ABNORMAL) DRUG SCREEN TOX URINE PANEL (04/09/2019 2:47 PM CDT) [facility] Amphetamines Screen Urine Not Detected Not Detected 04/09/2019 5:46 PM CDT [facility] Barbiturates Screen Urine Not Detected Not Detected 04/09/2019 5:46 PM CDT [facility] Benzodiazepines Screen Urine Not Detected Not Detected 04/09/2019 5:46 PM CDT [facility] Cannabinoids Screen Urine Detected(AA ) Not Detected 04/09/2019 5:46 PM CDT [facility] Cocaine Screen Urine Not Detected Not Detected 04/09/2019 5:46 PM CDT [facility] Methadone Screen Urine Not Detected Not Detected 04/09/2019 5:46 PM CDT [facility] Opiate Screen Urine Not Detected Not Detected 04/09/2019 5:46 PM CDT [facility] Phencyclidine Screen Urine Not Detected Not Detected 04/09/2019 5:46 PM CDT [facility] Urine URINE / Unknown 04/09/2019 2 :47 PM CDT 04/09/2019 5:24 PM CDT Narrative [facility] - 04/09/2019 5:46 PM [...] MD LAB - URINE CHEMISTR Y ORDERABLES [facility] [address] [place] [address] * CULTURE URINE (04/09/2019 2:47 PM CDT) [facility] Culture Urine 10,000-50,000 CFU/mL urogenital hansa DYLAN 04/11/2019 10:23 AM CDT [facility] Urine URINE SPECIMEN OBTAINED BY CLEAN CATCH PROCEDURE / Unknown Collection / Unknown 04/09/2019 2:47 PM CDT 04/09/2019 3:30 PM CDT Homer Mackenzie MD LAB - MICROBI OLOGY ORDERABLES [facility] [address] [place] [address], [facility] [phone] * (ABNORMAL) URINALYSIS W/MICROSCOPIC NO CULTURE (04/09/2019 2:47 PM CDT) Color UA Citlali(A) Straw, Yellow 04/09/2019 3:05 PM [facility] Clarity UA Clear Clear 04/09/2019 3:05 PM [facility] Glucose UA Negative Negative 04/09/2019 3:05 PM [facility] Bilirubin UA Negative Negative 04/09/2019 3:05 PM [facility] Ketone UA Negative Negative 04/09/2019 3:05 PM [facility] Specific [place] UA 1.025 1.005 - 1.030 04/09/2019 3:05 PM [facility] Blood UA 1+(A) Negative 04/09/2019 3:05 PM [facility] pH UA 6.0 5.0 - 8.0 pH 04/09/2019 3:05 PM [facility] Protein UA 1+(A) Negative 04/09/2019 3:05 PM [facility] Urobilinogen UA 2.0(A) Negative mg/dL 04/09/2019 3:05 PM [facility] Nitrite UA Positive(A) Negative 04/09/2019 3:05 PM [facility] Leukocyte UA Negative Negative 04/09/2019 3:05 PM [facility] RBC UA 11-20(A) None Seen, 0-2, 3-5 # /hpf 04/09/2019 3:05 PM [facility] WBC UA 21-50(A) None Seen, 0-5 # /hpf 04/09/2019 3:05 PM [facility] Bacteria UA Trace(A) None Seen 04/09/2019 3:05 PM CDT [facility] Squamous Epithelial Cells 0-2 None Seen, 0-2, 3-5 /hpf 04/09/2019 3:05 PM CDT [facility] Mucus UA 3+ /LPF 04/09/2019 3:05 PM CDT [facility] Urine URINE SPECIMEN OBTAINED BY CLEAN CATCH PROCEDURE / Unknown Collection / Unknown 04/09/2019 2:47 PM CDT 04/09/2019 2:59 PM CDT Narrative [facility] - 04/09/2019 3:05 PM CDT Homer Mackenzie MD LAB - URINALY SIS ORDERABLES Performing Organization Address City/[facility]/ZIP Co de Phone Number [facility] [address] [place] [address] * HCG URINE QUAL POCT NOTIFICATION (04/09/2019 2:27 PM CDT) Comment Notification Label Only - See Separate Report 04/09/2019 3:30 PM CDT [facility] Urine URINE / Unknown 04/09/2019 2 :27 PM CDT 04/09/2019 2:27 PM CDT Homer Mackenzie MD LAB - URINALY SIS ORDERABLES Performing Organization Address [facility] de Phone Number [facility] [address] [place] [phone] documented in this encounter Visit Diagnoses Diagnosis [...] RN) documented in this encounter Care Teams Poolroom Table Attendant Relationship Specialty Start Date End Date Yumiko Jones MD [address] [place] [id number] PCP - General Pediatrics 04/09/19 documented as of this encounter
--- OUTSIDE RECORDS SUMMARY | 2024-12-02 15:36 | XMS_ITS | Encounter Summary ---
Author Organization [facility] Address [facility] [facility] [place] [address] Care Team Providers Care Operator Vacuum Name Role Phone Yumiko Jones MD Primary Care Provider [phone] Reason for Visit * Reason Onset Date Comments Referral 10/30/2021 Encounter Details Date Type Department Care Team (Late st Contact Info) Description 10/30/2021 Telephone [facility] Medical [facility] - Rheumatology [address], [address] [place] [address] Yaritza Steven MD [facility] [place] [address] Referral Social History Tobacco Use [...] patient to contact the office to schedule SECURITY DELIVERY SPECIALIST appointment with Dr. Steven. Called referral x3 on both numbers listed in file. No further calls will be made but if patient contacts the office can be scheduled for the soonest SECURITY DELIVERY SPECIALIST appointment. D MASTER * Telephone Encounter - Eugene Kafuman RN - 10/31/2021 10:35 AM CST Received a fax for the patient to be seen by Rheumatology. LMOR for patient to contact the office to schedule SECURITY DELIVERY SPECIALIST appointment with Dr. Steven. Called referral x2 D MASTER * Telephone Encounter - Eugene Kaufman RN - 10/30/2021 4:14 PM CST Received a fax for the patient to be seen by Rheumatology. LMOR for patient to contact the office to schedule SECURITY DELIVERY SPECIALIST appointment with Dr. Steven. Called referral x1 D MASTER documented in this encounter Plan of Treatment Not on file documented as of this encounter Visit Diagnoses Not on filedocumented in this encounter Care Teams Operator Vacuum Relationship Specialty Start Date End Date Yumiko Jones MD [address] [place] [id number] PCP - General Pediatrics 04/09/19 documented as of this encounter
--- OUTSIDE RECORDS SUMMARY | 2024-12-02 15:36 | XMS_ITS | Patient Health Summary ---
Author Organization [facility] Address [address] [place] [address] Care Team Providers Care Powerhouse Helper Name Role Phone Yumiko Jones MD Primary Care Provider Note from [facility] [place],non-owned Affiliates and Associated Physician Practices is amultiple site organization consisting of ambulatory clinics and hospital sitesin [place], [place]. This disclosure is being madepursuant to the Care Everywhere program and may not contain all information available regarding this patient. Last updated 18.[facility] Allergies No known active allergies [...] Probe Positive(A) Negative 04/11/2019 8:05 AM CDT [facility] GC Amplified Probe Negative Negative 04/11/2019 8:05 AM CDT [facility] Microbiology URINE / Unknown Collection / Unknown 04/10/2019 1:41 PM CDT 04/10/2019 1:57 PM CDT Narrative [facility] - 04/11/2019 8:05 AM CDT Results based on detection/no detection of ribosomal RNA by amplified method. Boy De Santiago MD LAB - MICROBIOLOGY ORDERABLES [facility] [address] [place] [address], [facility] [phone] * TSH REFLEX FREE T4 (04/10/2019 6:23 AM CDT) TSH 1.1363 0.35 - 4.94 ulU/mL 04/10/2019 7:32 AM CDT [facility] Blood BLOOD SPECIMEN / Unknown Venipuncture / Unknown 04/10/2019 6:23 AM CDT 04/10/2019 6:34 AM CDT Frieda Morris CREATIVE PRODUCER-LETTERPRESS PRINTING MACHINIST LAB - CHEMISTRY O RDERABLES Performing Organization Address [facility] Co de Phone Number [facility] [id number] [place] [address] * HEMOGLOBIN A1C (04/10/2019 6:23 AM CDT) Pathologist [facility] Hemoglobin A1c 4.8 4.0 - 6.1 % 04/10/2019 7:23 AM CDT [facility] Estimated Average Glucose 91 mg/dL 04/10/2019 7:23 AM CDT [facility] Blood BLOOD SPECIMEN / Unknown Venipuncture / Unknown 04/10/2019 6:23 AM CDT 04/10/2019 6:34 AM CDT Narrative [facility] - 04/10/2019 7:23 AM CDT Attention clinician: ??Reference Range has changed. Frieda Morris CREATIVE PRODUCER-LETTER[employer] PRINTING MACHINIST LAB - CHEMISTRY O RDERABLES Performing Organization Address [facility] Co de Phone Number [facility] [address] [place] [address] * CBC W AUTO DIFFERENTIAL (04/10/2019 6:23 AM CDT) WBC 5.5 4.5 - 14.5 x10E9/L 04/10/2019 6:41 AM CDT [facility] WBC Corrected x10E9/L 04/10/2019 6:41 AM CDT [facility] RBC 4.32 4.10 - 5.10 x10E12/L 04/10/2019 6:41 AM CDT [facility] Hemoglobin 12.5 12.0 - 16.0 [...] - 9.5 fl 04/10/2019 6:41 AM CDT [facility] Neutrophils % 32.6 24.0 - 66.0 % 04/10/2019 6:41 AM CDT [facility] Lymphocytes % 49.9 22.0 - 61.0 % 04/10/2019 6:41 AM CDT [facility] Monocytes % 9.0 3.0 - 15.0 % 04/10/2019 6:41 AM CDT [facility] Eosinophils % 7.2 0.0 - 10.0 % 04/10/2019 6:41 AM CDT [facility] Basophils % 1.1 % 04/10/2019 6:41 AM CDT [facility] Immature Granulocytes 0.2 % 04/10/2019 [...] - 0.29 x10E9/L 04/10/2019 6:41 AM CDT [facility] Immature Granulocytes Absolute 0.01 0 - 0.15 x10E9/L 04/10/2019 6:41 AM CDT [facility] nRBC Auto 0 /100 WBC 04/10/2019 6:41 AM T [facility] Blood BLOOD SPECIMEN / Unknown Venipuncture / Unknown 04/10/2019 6:23 AM CDT 04/10/2019 6:34 AM CDT Frieda Morris CREATIVE PRODUCER-[employer]ER[employer] PRINTING MACHINIST LAB - HEMATOLOGY ORDERABLES [facility] [address] [place] [address] * COMPREHENSIVE METABOLIC PANEL (04/10/2019 6:23 AM CDT) Glucose 87 74 - 106 mg/dL 04/10/2019 7:08 AM [facility] Sodium 139 136 - 145 mmol/L 04/10/2019 7:08 AM [facility] Potassium 3.9 3.5 - 5.1 mmol/L 04/10/2019 7:08 AM T [facility] Chloride 105 98 - 107 mmol/L 04/10/2019 7:08 AM [facility] CO2 25 20 - 28 mmol/L 04/10/2019 7:08 AM [facility] Calcium 9.6 8.4 - 10.2 mg/dL 04/10/2019 7:08 AM [facility] Anion Gap 9 8 - 16 mmol/L 04/10/2019 7:08 AM [facility] Comment: Assay measuring below lower limits of linearity, calculated result not valid in this circumstance. BUN 12 7 - 18.7 mg/dL 04/10/2019 7:08 AM [facility] Creatinine 1.00 0.55 - 1.02 mg/dL 04/10/2019 7:08 AM [facility] Alkaline Phosphatase 40 40 - 150 U/L 04/10/2019 7:08 AM T [facility] ALT 14 13 - 61 U/L 04/10/2019 7:08 AM T [facility] AST 15 5 - 34 U/L 04/10/2019 7:08 AM CDT [facility] Protein Total 7.1 6.4 - 8.3 gm/dL 04/10/2019 7:08 AM CDT [facility] Albumin 4.1 3.4 - 5.0 gm/dL 04/10/2019 7:08 AM CDT [facility] Bilirubin Total 0.6 0.2 - 1.0 mg/dL 04/10/2019 7:08 AM CDT [facility] eGFR by MDRD mL/min/1.7 3m2 04/10/2019 7:08 AM CDT [facility] Comment: eGFR calculations are not performed for children under 18 years old. eGFR by MDRD mL/min/1.7 3m2 04/10/2019 7:08 AM CDT [facility] Comment: eGFR calculations are not performed for children under 18 years old. Blood BLOOD SPECIMEN / Unknown Venipuncture / Unknown 04/10/2019 6:23 AM CDT 04/10/2019 6:34 AM CDT Narrative [facility] - 04/10/2019 7:08 AM CDT Attention clinician: BUN Reference Range has changed. Frieda Morris CREATIVE PRODUCER-[employer]ER[employer] PRINTING MACHINIST LAB - CHEMISTRY O RDERABLES [facility] [address] [place] [address] * (ABNORMAL) LIPID PROFILE (04/10/2019 6:23 AM CDT) Cholesterol 195 <200 mg/dL 04/10/2019 7:08 AM CDT [facility] Triglycerides 74 <150 mg/dL 04/10/2019 7:08 AM CDT [facility] HDL Cholesterol 53 >40 mg/dL 9 7:08 AM CDT [facility] LDL Calculated 127 <130 mg/dL 04/10/2019 7:08 AM CDT [facility] VLDL Calculated 15(L) >=30 mg/dL 9 7:08 AM CDT [facility] Chol HDL Ratio 3.7 <4.5 04/10/2019 7:08 AM CDT [facility] LDL/HDL Ratio 2.4 <5.0 04/10/2019 7:08 AM CDT [facility] Blood BLOOD SPECIMEN / Unknown Venipuncture / Unknown 04/10/2019 6:23 AM CDT 04/10/2019 6:34 AM CDT Frieda Morris APRN-[employer]ER[employer] PRINTING MACHINIST LAB - CHEMISTRY O RDERABLES [facility] [address] [place] [address] * HCG URINE QUALITATIVE - POCT (IP) INTERFACED (04/09/2019 3:02 PM CDT) HCG Qual Urine Negative Negative 04/09/2019 2:54 PM CDT [facility] Urine URINE / Unknown 04/09/2019 3 :02 PM CDT 04/09/2019 2:54 PM CDT Kumar Marcano MD LAB - POINT OF CARE ORDERABLES Performing Organization Address City/[facility]/ZIP Co de Phone Number [facility] [place] [address] * (ABNORMAL) URINALYSIS W/MICROSCOPIC NO CULTURE (04/09/2019 2:47 PM CDT) Color UA Citlali(A) Straw, Yellow 04/09/2019 3:05 PM T [facility] Clarity UA Clear Clear 04/09/2019 3:05 PM T [facility] Glucose UA Negative Negative 04/09/2019 3:05 PM T [facility] Bilirubin UA Negative Negative 04/09/2019 3:05 PM T [facility] Ketone UA Negative Negative 04/09/2019 3:05 PM T [facility] Specific Randall UA 1.025 1.005 - 1.030 04/09/2019 3:05 PM T [facility] Blood UA 1+(A) Negative 04/09/2019 3:05 PM T [facility] pH UA 6.0 5.0 - 8.0 pH 04/09/2019 3:05 PM T [facility] Protein UA 1+(A) Negative 04/09/2019 3:05 PM T [facility] Urobilinogen UA 2.0(A) Negative mg/dL 04/09/2019 3:05 PM CDT [facility] Nitrite UA Positive(A) Negative 04/09/2019 3:05 PM CDT [facility] Leukocyte UA Negative Negative 04/09/2019 3:05 PM CDT [facility] RBC UA 11-20(A) None Seen, 0-2, 3-5 # /hpf 04/09/2019 3:05 PM CDT [facility] WBC UA 21-50(A) None Seen, 0-5 # /hpf 04/09/2019 3:05 PM CDT [facility] Bacteria UA Trace(A) None Seen 04/09/2019 3:05 PM CDT [facility] Squamous Epithelial Cells 0-2 None Seen, 0-2, 3-5 /hpf 04/09/2019 3:05 PM CDT [facility] Mucus UA 3+ /LPF 04/09/2019 3:05 PM CDT [facility] Urine URINE SPECIMEN OBTAINED BY CLEAN CATCH PROCEDURE / Unknown Collection / Unknown 04/09/2019 2:47 PM CDT 04/09/2019 2:59 PM CDT Narrative [facility] - 04/09/2019 3:05 PM CDT Homer Mackenzie MD LAB - URINALY SIS ORDERABLES Performing Organization Address City/[facility]/ZIP Co de Phone Number [facility] [place] [address] * CULTURE URINE (04/09/2019 2:47 PM CDT) Culture Urine 10,000-50,000 CFU/mL urogenital hansa DYLAN 04/11/2019 10:23 AM CDT [facility] Urine URINE SPECIMEN OBTAINED BY CLEAN CATCH PROCEDURE / Unknown Collection / Unknown 04/09/2019 2:47 PM CDT 04/09/2019 3:30 PM CDT Homer Mackenzie MD LAB - MICROBI OLOGY ORDERABLES [facility] [address] [place] [address] [phone] * (ABNORMAL) DRUG SCREEN TOX URINE PANEL (04/09/2019 2:47 PM CDT) Pathologist [facility] Amphetamines Screen Urine Not Detected Not Detected 04/09/2019 5:46 PM CDT [facility] Barbiturates Screen Urine Not Detected Not Detected 04/09/2019 5:46 PM CDT [facility] Benzodiazepines Screen Urine Not Detected Not Detected 04/09/2019 5:46 PM CDT [facility] Cannabinoids Screen Urine Detected(AA ) Not Detected 04/09/2019 5:46 PM CDT [facility] Cocaine Screen Urine Not Detected Not Detected 04/09/2019 5:46 PM CDT [facility] Methadone Screen Urine Not Detected Not Detected 04/09/2019 5:46 PM CDT [facility] Opiate Screen Urine Not Detected Not Detected 04/09/2019 5:46 PM CDT [facility] Phencyclidine Screen Urine Not Detected Not Detected 04/09/2019 5:46 PM CDT [facility] Urine URINE / Unknown 04/09/2019 2 :47 PM CDT 04/09/2019 5:24 PM CDT Narrative [facility] - 04/09/2019 5:46 PM CDT [...] MD LAB - URINE CHEMISTR Y ORDERABLES [facility] [address] [place] [address] * HCG URINE QUAL POCT NOTIFICATION (04/09/2019 2:27 PM CDT) Pathologist [facility] Comment Notification Label Only - See Separate Report 04/09/2019 3:30 PM CDT [facility] Urine URINE / Unknown 04/09/2019 2 :27 PM CDT 04/09/2019 2:27 PM CDT Homer Mackenzie MD LAB - URINALY SIS ORDERABLES [facility] [place] [address] Care Teams Powerhouse Helper Relationship Specialty Start Date End Date Yumiko Jones MD [address] [place] [address] PCP - General Pediatrics 04/09/19
--- OUTSIDE RECORDS SUMMARY | 2024-12-02 15:36 | XMS_ITS | Clinical Summary ---
Author Organization [facility] Address [address] [place] [address] Care Team Providers Care Production Control Coordinating Clerk Name Role Phone Yumiko Jones MD Primary Care Provider Source Comments [facility],non-[facility] Affiliates and Associated Physician Practices is amultiple site organization consisting of ambulatory clinics and hospital sitesin [place], [place], [place] and [place]. This disclosure is being madepursuant to the Care Everywhere program and may not contain all information available regarding this patient. Last updated 18.[facility] [employer] Allergies No known active allergies Medications * [...] Probe Positive(A) Negative 04/11/2019 8:05 AM CDT [facility] GC Amplified Probe Negative Negative 04/11/2019 8:05 AM CDT [facility] Microbiology URINE / Unknown Collection / Unknown 04/10/2019 1:41 PM CDT 04/10/2019 1:57 PM CDT Narrative [facility] - 04/11/2019 8:05 AM CDT Results based on detection/no detection of ribosomal RNA by amplified method. Boy De Santiago MD LAB - MICROBIOLOGY ORDERABLES [facility] [address] [place] [address], [facility] [phone] from Last 3 Months or Most Recently Relevant to Health Maintenance Advance Directives * Full Code (Latest Code Status on File) Date Activated Date Inactivated Comments 04/09/2019 8:31 PM 04/14/2019 11:19 AM Care Teams Production Control Coordinating Clerk Relationship Specialty Start Date End Date Yumiko Jones MD [address] [place] [address] [address] [place] [address] PCP - General Pediatrics 04/09/19
--- OUTSIDE RECORDS SUMMARY | 2024-12-02 23:07 | XMS_ITS | Clinical Summary ---
Author Organization [facility] Address [address] [place] [address] Care Team Providers Care Powertrain Design Engineer Name Role Phone Yumiko Jones MD Primary Care Provider Source Comments [facility],non-[facility] Affiliates and Associated Physician Practices is amultiple site organization consisting of ambulatory clinics and hospital sitesin [place], [place], [place] and [place]. This disclosure is being madepursuant to the Care Everywhere program and may not contain all information available regarding this patient. Last updated 18.[facility] [email or web address] Allergies No known active allergies Medications * [...] Probe Positive(A) Negative 04/11/2019 8:[address] [facility] GC Amplified Probe Negative [...] [facility] [address] [place] [address], [facility] [phone] from Last 3 Months or Most Recently Relevant to Health Maintenance Advance Directives * Full Code (Latest Code Status on File) Date Activated Date Inactivated Comments 04/09/2019 8:31 PM 04/14/2019 11:19 AM Care Teams Powertrain Design Engineer Relationship Specialty Start Date End Date Yumiko Jones MD [address] [place] [address] [address] [place] [address] PCP - General Pediatrics 04/09/19
--- OUTSIDE RECORDS SUMMARY | 2024-12-02 23:08 | XMS_ITS | Encounter Summary ---
Author Organization [facility] Address [address] [place] [address] Care Team Providers Care Internship Coordinator Name Role Phone Gadiel Gustafson MD Primary Care Provider [phone] Encounter Details Date Type Department Care Team (Late st Contact Info) Description 07/20/2024 External Device Data [place] ABSTRACTION Provider, Abstract NO ADDRESS ON FILE Social History Tobacco Use Types Packs/Day Years Used Date Smoking Tobacco: Never Smokeless Tobacco: Never Alcohol Use Standard Drinks/Week Comments Yes 0 (1 standard drink = 0.6 oz pur e alcohol) Sex and Gender Information Value Date Recorded Sex Assigned at Not on file Gender Identity Not on file Sexual Orientation Not on file documented as of this encounter Plan of Treatment Upcoming Encounters Date Type Department Care Team (Late st Contact Info) Description 12/04/2024 10:45 AM JOB PRINTER Office Visit [facility] O[facility] [address] [place] [address] [place] [address] [place] [address] 01/31/2025 2:30 PM JOB PRINTER Office Visit [facility] OBGYN [address] [place] [address] [place] [address] [place] [address] documented as of this encounter Visit Diagnoses Not on filedocumented in this encounter Additional Health Concerns Assessment Noted Time PHQ-9 Depression Total Score: 3 01/10/20 24 2:22 PM JOB PRINTER documented as of this encounter Care Teams Internship Coordinator Relationship Specialty Start Date End Date Gadiel Gustafson MD [address] [place] [address] PCP - General Internal Medicine 09/29/23 documented as of this encounter
--- OUTSIDE RECORDS SUMMARY | 2024-12-02 23:08 | XMS_ITS | Encounter Summary ---
Author Organization [facility] Address [address] [place] [address] Care Team Providers Care Apple Turner Name Role Phone Gadiel Gustafson MD Primary Care Provider [phone] Encounter Details Date Type Department Care Team [...] st Contact Info) Description 12/04/2024 10:45 AM SANDWICH COUNTER ATTENDANT Office Visit [facility] OBGYN [address] [address] [place] [address] [place] [address] [place] [address] 01/31/2025 2:30 PM SANDWICH COUNTER ATTENDANT Office Visit [facility] OBGYN [address] [address] [place] [address] [place] [address] [place] [address] documented as of this encounter Visit Diagnoses Not on filedocumented in this encounter Additional Health Concerns Assessment Noted Time PHQ-9 Depression Total Score: 3 01/10/20 24 2:22 PM SANDWICH COUNTER ATTENDANT documented as of this encounter Care Teams Apple Turner Relationship Specialty Start Date End Date Gadiel Gustafson MD [address] [place] [address] PCP - General Internal Medicine 09/29/23 documented as of this encounter
--- OUTSIDE RECORDS SUMMARY | 2024-12-02 23:08 | XMS_ITS | Data Portability ---
Author Organization [facility], Main Office Address [address] [place] [address] Assessment No assessment recorded. Plan of Treatment Reminders Order Date Submit Date Provider Last Modified By Organization Details Last Modified Time Details Appointments None recorded. Lab urinalysis , dipstick 2022 023 [email or web address] [facility], [address] [place] [address], [address], [address], 16:54:55 Referral None recorded. Procedures None recorded. Surgeries None recorded. Imaging None recorded. Medication Orders None recorded. Patient TargetsNo targets recorded. Patient InstructionsNo instructions recorded. Reason for Referral None Reported. Results Created Date Observation Date Name Description Value Unit Range Abnormal Flag Note LastModifiedBy Organization Detail LastModifiedTime 12/22/1912/22/2022 urina lysis , dipst ick Leukocytes (reference range: negative aristeo/? ? ?l) Negati ve Not Available [address], [address], 12/22/2022 16:56:50 12/22/19 23 12/22/2022 urina lysis , dipst ick Nitrite (reference rage: negative mg/dl) negati ve Not Available [address], [address], [address], 12/22/2022 16:56:50 12/22/19 23 12/22/2022 urina lysis , dipst ick Urobilinogen (reference range: 0.2-1 mg/dl) 0.2 Not Available Z_[address], [address], 12/22/2022 16:56:50 12/22/19 23 12/22/2022 urina lysis , dipst ick Protein (reference range: negative mg/dl) Negati ve Not Available Z[address] [address], [place], [address], 12/22/2022 16:56:50 12/22/19 23 12/22/2022 urina lysis , dipst ick pH (reference range: 5-7) 6.0 Not Available Z_[address], [address], 12/22/2022 16:56:50 12/22/19 23 12/22/2022 urina lysis , dipst ick Blood (reference range: negative Sunday/? ? ?l) Negati ve Not Available [address], [address], 12/22/2022 16:56:50 12/22/19 23 12/22/2022 urina lysis , dipst ick Specific [place] (reference range: 1.005-1.030) 1.025 Not Available Z_[facility]_[address], [address], 12/22/2022 16:56:50 12/22/19 23 12/22/2022 urina lysis , dipst ick Ketone (reference range: negative mg/dl) Negati ve Not Available [address], [address], 12/22/2022 16:56:50 12/22/19 23 12/22/2022 urina lysis , dipst ick Bilirubin (reference range: negative mg/dl) Negati ve Not Available [address], [place] [address] [address], [place], [address], 12/22/2022 16:56:50 12/22/19 23 12/22/2022 urina lysis , dipst ick Glucose (reference range: negative mg/dl) Negati ve Not Available [address] [address], [place], [address], 12/22/2022 16:56:50 01/12/20 23 01/12/2023 urina lysis , dipst ick Leukocytes (reference range: negative aristeo/? ? ?l) Negati ve Not Available [address], [address], 01/12/2023 17:16:46 01/12/20 23 01/12/2023 urina lysis , dipst ick Nitrite (reference rage: negative mg/dl) negati ve Not Available [address] [address], [place], [address], 01/12/2023 17:16:46 01/12/20 23 01/12/2023 urina lysis , dipst ick Urobilinogen (reference range: 0.2-1 mg/dl) 0.2 Not Available [address], [address], 01/12/2023 17:16:46 01/12/20 23 01/12/2023 urina lysis , dipst ick Protein (reference range: negative mg/dl) Negati ve Not Available [address], [address], 01/12/2023 17:16:46 01/12/20 23 01/12/2023 urina lysis , dipst ick pH (reference range: 5-7) 5.0 Not Available [address], [address], 01/12/2023 17:16:46 01/12/20 23 01/12/2023 urina lysis , dipst ick Blood (reference range: negative Sunday/? ? ?l) Negati ve Not Available [address], [address], 01/12/2023 17:16:46 01/12/20 23 01/12/2023 urina lysis , dipst ick Specific [place] (reference range: 1.005-1.030) 1.030 Not Available [address], [address], 01/12/2023 17:16:46 01/12/20 23 01/12/2023 urina lysis , dipst ick Ketone (reference range: negative mg/dl) Negati ve Not Available [address], [address], 01/12/2023 17:16:46 01/12/20 23 01/12/2023 urina lysis , dipst ick Bilirubin (reference range: negative mg/dl) Negati ve Not Available [address] [place], [address], 01/12/2023 17:16:46 01/12/20 23 01/12/2023 urina lysis , dipst ick Glucose (reference range: negative mg/dl) Negati ve Not Available [address], [address], 01/12/2023 17:16:46 01/12/20 23 01/12/2023 urina lysis , dipst ick Appearance Clear Not Available [address], [address], 01/12/2023 17:16:46 01/12/20 23 01/12/2023 urina lysis , dipst ick Color Yellow Not Available [address], [address], 01/12/2023 17:16:46 03/09/20 23 03/09/2023 urina lysis , dipst ick Leukocytes (reference range: negative aristeo/? ? ?l) Negati ve Not Available [address], [address], 03/09/2023 16:35:04 03/09/20 23 03/09/2023 urina lysis , dipst ick Nitrite (reference rage: negative mg/dl) negati ve Not Available [address], [address], 03/09/2023 16:35:04 03/09/20 23 03/09/2023 urina lysis , dipst ick Urobilinogen (reference range: 0.2-1 mg/dl) 0.2 Not Available [address] [address], [place], [address], 03/09/2023 16:35:04 03/09/20 23 03/09/2023 urina lysis , dipst ick Protein (reference range: negative mg/dl) Negati ve Not Available [address] [address], [place], [address], 03/09/2023 16:35:04 03/09/20 23 03/09/2023 urina lysis , dipst ick pH (reference range: 5-7) 7.0 Not Available [address] [address], [place], [address], 03/09/2023 16:35:04 03/09/20 23 03/09/2023 urina lysis , dipst ick Blood (reference range: negative Sunday/? ? ?l) Negati ve Not Available [address] [address], [place], [address], 03/09/2023 16:35:04 03/09/20 23 03/09/2023 urina lysis , dipst ick Specific [place] (reference range: 1.005-1.030) 1.010 Not Available [address] [address], [place], [address], 03/09/2023 16:35:04 03/09/20 23 03/09/2023 urina lysis , dipst ick Ketone (reference range: negative mg/dl) Negati ve Not Available [address], [address], 03/09/2023 16:35:04 03/09/20 23 03/09/2023 urina lysis , dipst ick Bilirubin (reference range: negative mg/dl) Negati ve Not Available [address] [address], [place], [address], 03/09/2023 16:35:04 03/09/20 23 03/09/2023 urina lysis , dipst ick Glucose (reference range: negative mg/dl) Negati ve Not Available [address] [address], [place], [address], 03/09/2023 16:35:04 03/09/20 23 03/09/2023 urina lysis , dipst ick Appearance Clear Not Available [address] [address], [place], [address], 03/09/2023 16:35:04 03/09/20 23 03/09/2023 urina lysis , dipst ick Color Pale Yellow Not Available [address] [address], [place], [address], 03/09/2023 16:35:04 07/22/20 21 XR, hip, bilat eral No observ ation record ed. [id number] [id number] [address], [place], [address], 01/27/2023 23:31:33 01/07/20 23 01/06/2023 CT, abdom en + pelvi s, w/wo contr ast No observ ation record ed. [id number] [facility] [address] [facility], [place], [address], 01/27/2023 23:31:33 Result Notes None recorded. Problems Name Problem SNOMED Code Status Onset Date Resolution Date Notes Provider Name and Address Organization Details Recorded Time Pain in left sacroiliac joint 0265990217862 9102 Active 2020 Not Available [facility] 3 23:30:07 Pain in right sacroiliac joint 9508414218086 9107 Active 2020 Not Available [facility] 3 23:30:07 Trochanter ic bursitis of left hip 7360329722749 03 Active 2020 Not Available [facility] 3 23:30:07 Trochanter ic bursitis of right hip 0508960100810 00 Active 2020 Not Available [facility] 3 23:30:07 Urinary incontinen ce 143035231 Active 2022 Anival Fernández MD [address] [facility], [facility] [address], [place], [address] , [facility] Online Ordering [facility] 3 16:52:40 Problem Notes None recorded. Procedures Surgical History None recorded. Imaging Results Imaging Date Name Status LastModified by Organiz ation Details LastModified Time 01/06/2023 CT, abdomen + pelvis, w/wo contrast completed [id number] [facility] [address] [place], [address], 01/27/2023 23:31:33 07/22/2021 XR, hip, bilateral completed [id number] [id number] [address], [place], [address], 01/27/2023 23:31:33 Procedure Notes None recorded. Medical Equipment None Reported. Medications Name Sig Start Date Stop Date Status Note LastModified by Organization Details LastModified Time prednisone 10 mg tablet TAKE 1 TAB 3 TIMES DAILY X3 DAYS, 1 TAB TWICE DAILY X2 DAYS, 1 TAB ONCE DAILY X1 DAY 12/22 completed Not Available Not Available Not Available fluconazole 150 mg tablet TAKE 1 TABLET BY MOUTH ONCE, THEN WAIT 72 HOURS IF SYMPTOMS PERSIST, TAKE THE 2ND TABLET 12/22 completed Not Available Not Available Not Available metronidazo le 500 mg tablet 12/22 completed Not Available Not Available Not Available tretinoin 0.05 % topical cream APPLY A PEA-SIZED AMOUNT TOPICALLY TO THE ENTIRE FACE NIGHTLY active Not Available Not Available No t Available sulfamethox azole 800 mg-trimetho prim 160 mg tablet TAKE 1 TABLET BY MOUTH TWICE A DAY 07/22 completed Not Available Not Available Not Available amoxicillin 500 mg tablet TAKE 1 TABLET BY MOUTH THREE TIMES DAILY UNTIL GONE 12/22 completed Not Available Not Available Not Available prednisone 10 mg tablets in a dose pack Take 1 tab by mouth, 3 times a day for 3 daysTake 1 tab by mouth 2 times a day for 2 daysTake 1 tab by mouth once a day for 1 day 12/22 completed Not Available Not Available Not Available clindamycin 1 % topical gel APPLY TO AFFECTED AREA EVERY DAY active Not Available Not Available No t Available levofloxaci n 750 mg tablet TAKE 1 TABLET BY MOUTH EVERY 24 HOURS FOR 5 DAYS 01/12 completed Not Available Not Available Not Available fluticasone propionate 50 mcg/actuati on nasal spray,suspe nsion INSTILL 1 SPRAY INTO THE NOSTRILS ONCE DAILY NEEDED 12/22 completed Not Available Not Available Not Available clotrimazol e 1 % topical cream APPLY 1 APPLICATI ON ONTO THE SKIN TWICE DAILY FOR 14 DAYS 12/22 completed Not Available Not Available Not Available amoxicillin 875 mg-potassiu m clavulanate 125 mg tablet 12/22 completed Not Available Not Available Not Available clindamycin 1 % lotion APPLY TOPICALLY TO FACE TWICE DAILY active Not Available Not Available No t Available azithromyci n 500 mg tablet TAKE 2 TABLETS BY MOUTH TODAY AT THE SAME TIME 07/22 completed Not Available Not Available Not Available Vitamin D3 2022 active Not Available Not Available Not Avai lable Tri Femynor (28) 0.18 mg(7)/0.215 mg(7)/0.25 mg(7)-35 mcg tablet TAKE 1 TABLET BY MOUTH EVERY DAY 12/22 completed Not Available Not Available Not Available COVID-19 test specimen collection TEST DIRECTED 12/22 completed Not Available Not Available Not Available Vitals Date Recorded Body mass index (BMI) Body height Body weight Provider Name and Address Organization Details Last Updated DateTime 07/22/2021 19.6 kg/m2 157.48 cm 30033.38 g Not Available [facility] 01/27/2023 23:29:47 Date Recorded Body mass index (BMI) Body height Oxygen saturation Oxygen saturation in Arterial blood by Pulse oximetry Heart rate Body temperature Body weight Systolic blood pressure Diastolic blood pressure Provider Name and Address Organization Details Last Updated DateTime 3 20.1 kg/m2 157.48 cm 99 % 99 % 89 /min 98.6 [degF] 32970.1 6 g 123 mm[Hg] 90 mm[Hg] Not Available [facility] 3 23:29:47 Date Recorded Body mass index (BMI) Body height Oxygen saturation Oxygen saturation in Arterial blood by Pulse oximetry Body temperature Body weight Provider Name and Address Organization Details Last Updated DateTime 3 20.5 kg/m2 157.48 cm 99 % 99 % 98.4 [degF] 22406.3 5 g Not Available [facility] 3 23:29:47 Date Recorded Body height Body mass index (BMI) Body mass index (BMI) Percentile per age and sex Body weight Oxygen saturation Oxygen saturation in Arterial blood by Pulse oximetry Body temperature Heart rate Systolic blood pressure Diastolic blood pressure Provider Name and Address Organization Details Last Updated DateTime 3 157.48 cm 23.6 kg/m2 68 % 09343.4 2 g 99 % 99 % 98.6 [degF] 65 /min 131 mm[Hg] 80 mm[Hg] BETSY Velazquez [place] [facility] 3 16:34:06 Social History Question Answer Notes LastModified by Organizat ion Details LastModified Time Tobacco Smoking Status Never Smoker Not Available [facility] 01/27/2023 23:29:07 What Is Your Level Of Alcohol Consumption? None [id number] Information not available 01/27/2023 What Is Your Level Of Caffeine Consumption? Occasional [id number] Information not available 01/27/2023 What Was The Date Of Your Most Recent Tobacco Screening? 03/09/2023 [email or web address] Information not available 03/09/2023 Do You Use Any Illicit Or Recreational Drugs? No [id number] Information not available 01/27/2023 Has Tobacco Cessation Counseling Been Provided? No [id number] Information not available 01/27/2023 Do You Or Have You Ever Used Any Other Forms Of Tobacco Or Nicotine? No [id number] Information not available 01/27/2023 Sex: Unknown Functional Status None recorded. Mental Status None recorded. Family History Relationship Description Onset Age of this Age Resolved Age Notes LastModified by Organization Details LastModified Time Unspecified Relation Hypertensive disorder [id number] Not available 01/27/2023 23:29:21 Mother Malignant tumor of ovary [id number] Not available 01/27/2023 23:29:21 Medical History Condition Response BLINDNESS N CYSTITIS N RHEUMATIC FEVER N BLADDER PROBLEMS N KIDNEY STONES N Enlarged Prostate N MRSA N SLEEP APNEA N INFECTIOUS DISEASE N HEART ARRHYTHMIA N PROSTATE N LUNG DISEASE/DISORDER N INSOMNIA N HISTORY OF DRUG ABUSE N COPD N RADIATION / CHEMOTHERAPY N HIGH CHOLESTEROL / HYPERLIPIDEMIA N HYPERTHYROIDISM N UTI N BLOOD DISEASES N EDEMA N HYPOTHYROIDISM N SHINGLES N BACK / NECK PROBLEMS N BOWEL PROBLEMS N DEPRESSION (INCLUDING POST ) Y HAVE YOU BEEN HOSPITALIZED OR SEEN IN [facility] ER IN THE PAST YEAR ? N STROKE/TIA N THYROID DISEASE N BENIGN PROSTATIC HYPERPLASIA N DIALYSIS N OBESITY N GERD/NAUSEA N ANEURYSM N OSTEOPOROSIS N Increased Urination N URINARY/BLADDER/KIDNEY PROBLEMS N CORONARY ARTERY DISEASE (CAD) N ARTHRITIS N USE OF BLOOD THINNERS N NO SIGNIFICANT PAST MEDICAL HISTORY N DIABETES, TYPE N EMPHYSEMA N GASTROINTESTINAL DISORDER N PARKINSON N GASTROINTESTINAL BLEEDING N BLOOD CLOTS N Difficulty Urinating N ASTHMA N HEPATITIS / LIVER DISEASE N CATARACTS N GOUT N SLEEP DISORDER N ALZHEIMER'S DISEASE N ERECTILE DYSFUNCTION N HERPES N HEADACHES/MIGRAINES N SEIZURES/EPILEPSY N GI PROBLEMS N Low Testosterone N HEART MURMUR N PACEMAKER N DIZZINESS N HEART DISEASE/HEART PROBLEMS N AIDS/HIV N KIDNEY DISEASE N MULTIPLE SCLEROSIS N LIVER DISEASE N MALE HYPOGONADISM N HYPERTENSION N CANCER: SPECIFY N TOURETTE'S N BLOOD TRANSFUSION N ANESTHESIA COMPLICATIONS N ANEMIA/BLOOD DISORDER N ATRIAL FIBRILLATION N AUTOIMMUNE DISEASE N TUBERCULOSIS N GLAUCOMA N Gynecological HistoryNo gynecological history recorded. Obstetrics History GPAL:G 0 P 0 0 0 0 Past Encounters Encounter ID Performer Location Encounter Start Date Encounter Closed Date Diagnosis/Indication Diagnosis SNOMED-CT Code Diagnosis ICD10 Code [id number] [facility] [address] [place] [address] 07/22/2021 00:00:00 07/22/2021 15:27:15 [id number] [facility] [address] [address] 12/22/2022 00:00:00 12/22/2022 19:23:45 [id number] [facility] [address] [address] 01/12/2023 00:00:00 01/12/2023 20:53:24 [id number] Anival Fernández MD [facility] [address] [address] 03/09/2023 16:18:42 03/09/2023 16:46:58 Urinary incontinence 088886670 R32 Health Concerns Section Related Observation LastModified by Organization Detai ls LastModified Time None Recorded Concern Status LastModified by Organization Details LastModified Time None Recorded Advance Directives Directive None Recorded Payers Encounter Date Sequence Insurance Name Policy Number Policy Roman Covered Member ID Roman Member ID Guarantor Name 03/09/2023 1 [employer] (PPO) [id number] Jody Enrique [id number] Daiana Spencer Notes Date Note Type Note Provider Name and Address Organization Details Recorded Time 07/22/2021 text/html Back PainReporte d bypatient.Location :pain radiating to the buttocks Quality:dull Severity:worsening Duration:chronic Context:unusual activity; prior back problems Associated Symptoms:no fever; no weak limbs; no numbness of the legs/feet; no tingling; no incontinence; no shortness of breathHip(s)Report ed bypatient.Location :bilateral; lateral Quality:throbbing; superficial; frequent Severity:moderate Duration:continuou s since onset Timing:occasional Context:overuse Alleviating Factors:lying down; heat; ice; rest; exercise; limited weight bearing Aggravating Factors:standing; walking; bending/squatting Associated Symptoms:no numbness; no redness; no ecchymosis; no catching/locking; no popping/clicking; no buckling; no grinding; no instability; no radiation down leg; no drainage; no fever; no chills; no weight loss; no change in bowel/bladder habits;weakness;sw elling Not Available [place] [facility] [email or web address] 07/22/2021 15:27:15 03/09/2023 text/html problems- femalePt presented to 5 days ago with gross hematuria with some stringy clots along with dysuria. She was given abx and hematuria has cleared and dysuria is better. She has long standing urgency , urge incontinence, some frequency. She does not wear pads. She was in [employer] where she got some medication which helped while she was taking it. She has good stream and no nocturia or enuresis. She drinks a lot of water and minimal caffeine. No children, no stress incontinence. She was told once she had ovarian cyst , her family hx is ovarian cancer. No hx of stones.01/12/23Pt has not noted any improvement with no caffeine. CT showed normal upper tracts, stool in colon and narrowing of spinal canal at L5-S1.03/09/23Pt is doing the same, still leaking and has pain with full bladder. She has not seen neurosurg yet. Anival Fernández MD [address] [place] [address], [facility] [address], [place], [address], [place] [facility] [email or web address] 03/09/2023 16:55:04 OBGyn Episode No OBEpisode recorded.
--- OUTSIDE RECORDS SUMMARY | 2024-12-02 23:08 | XMS_ITS | Encounter Summary ---
Author Organization [facility] Address [address] [place] [address] Care Team Providers Care Silver Plater Name Role Phone Gadiel Gustafson MD Primary Care Provider [phone] Encounter Details Date Type Department Care Team (Late st Contact Info) Description 08/15/2024 External Device Data STL ABSTRACTION Provider, Abstract [...] st Contact Info) Description 12/04/2024 10:45 AM MANAGER INSIDE Office Visit [facility] OBGYN [address] [address] [address] [place] [address] [place] [address] [place] [address] 01/31/2025 2:30 PM MANAGER INSIDE Office Visit [facility] OBGYN [address] [address] [address] [place] [address] [place] [address] [place] [address] documented as of this encounter Visit Diagnoses Not on filedocumented in this encounter Additional Health Concerns Assessment Noted Time PHQ-9 Depression Total Score: 3 01/10/20 24 2:22 PM MANAGER INSIDE documented as of this encounter Care Teams Silver Plater Relationship Specialty Start Date End Date Gadiel Gustafson MD [address] [place] [address] PCP - General Internal Medicine 09/29/23 documented as of this encounter
--- OUTSIDE RECORDS SUMMARY | 2024-12-02 23:08 | XMS_ITS | Encounter Summary ---
Author Organization [facility] Address [address] [place] [address] Care Team Providers Care Entry Level Marketing Representative Name Role Phone Gadiel Gustafson MD Primary Care Provider [phone] Reason for Visit * Reason Comments Medication Refill Encounter Details Date Type Department Care Team (Late st Contact Info) Description 06/12/2024 Refill [facility] - [address] [place] [address] Gadiel Gustafson MD [address] [facility] [place] [address] Social History Tobacco Use Types Packs/Day Years Used Date Smoking Tobacco: Never Smokeless Tobacco: Never Alcohol Use Standard Drinks/Week Comments Yes 0 (1 standard drink = 0.6 oz pur e alcohol) Sex and Gender Information Value Date Recorded Sex Assigned at Not on file Gender Identity Not on file Sexual Orientation Not on file documented as of this encounter Miscellaneous Notes * Telephone Encounter - Yesenia Zelaya RN - 06/13/2024 9:43 AM CDT Provider note from 01/10/2024 visit: Return in about 8 weeks (around 03/06/2024) for Follow-up - this was not completed. Patient is communicating with [facility]. Provider to refill, if appropriate. I have verified this refill request with current med list. Last office visit and next office visit are up-to-date. Recent Visits Date Type Provider Dept 01/10/24 Office Visit Mell Strong FNP [facility] [address] 11/24/23 [facility] 09/29/23 Office Visit Ligia Mellpam [place], [facility] Showing recent visits within past 540 days with a meds authorizing provider and meeting all other requirements Future Appointments No visits were found meeting these conditions. Showing future appointments within next 365 days with a meds authorizing provider and meeting all other requirements * Telephone Encounter - Hallie Mendoza - 06/12/2024 12:33 PM CDT Copied from [facility] #[id number]. Topic: Medication Request >> Jun 12, 2024 12:32 PM Hallie Patel wrote: Medication Refill Request from: Patient/Caregiver Did the patient/caregiver contact their pharmacy for refill prior to calling? Yes Medication (Ask patient/caregiver to spell if possible): buPROPion HCL (WELLBUTRIN XL) 150 mg Extended Release 24 hour tablet Preferred Pharmacy: [id number] [place] [address] [address] [place] Patient/Caregiver Callback Number: [phone] (home) Call Notes: Patient needs a medication refill for listed above documented in this encounter Plan of Treatment Upcoming Encounters Date Type Department Care Team (Late st Contact Info) Description 12/04/2024 10:45 AM DYE BOARDING MACHINE OPERATOR Office Visit [facility] OBGYN [address] [address] [place] [address] [place] [address] [place] [address] 01/31/2025 2:30 PM DYE BOARDING MACHINE OPERATOR Office Visit [facility] OBGYN [address] [address] [address] [place] [address] [place] [address] [facility] [address] [place] [address] documented as of this encounter Visit Diagnoses Not on filedocumented in this encounter Additional Health Concerns Assessment Noted Time PHQ-9 Depression Total Score: 3 01/10/20 24 2:22 PM DYE BOARDING MACHINE OPERATOR documented as of this encounter Care Teams Entry Level Marketing Representative Relationship Specialty Start Date End Date Gadiel Gustafson MD [address] [place] [address] PCP - General Internal Medicine 09/29/23 documented as of this encounter
--- OUTSIDE RECORDS SUMMARY | 2024-12-02 23:08 | XMS_ITS | Encounter Summary ---
Author Organization [facility] Address [address] [place] [address] Care Team Providers Care Restaurant Server Name Role Phone Gadiel Gustafson MD Primary Care Provider [phone] Reason for Visit * Reason Comments [facility] Encounter Details Date Type Department Care Team (Late st Contact Info) Description 06/05/2024 Patient Outreach [facility] [address] [facility] [place] [address] [facility] Care Social History Tobacco Use Types Packs/Day Years Used Date Smoking Tobacco: Never Smokeless Tobacco: Never Alcohol Use Standard Drinks/Week Comments Yes 0 (1 standard drink = 0.6 oz pur e alcohol) Sex and Gender Information Value Date Recorded Sex Assigned at Not on file Gender Identity Not on file Sexual Orientation Not on file documented as of this encounter Progress Notes * [facility] - 06/05/2024 6:34 PM CDT June 05, 2024 06/05/2024 0.30 Minutes -- Patient Contact 06/05/2024 2.00 Minutes -- Patient Related Correspondence 06/05/2024 2.00 Minutes -- Registry Management Primary Diagnosis: F43.23 - Adjustment disorder with mixed anxiety and depressed mood Date: 06/05/2024 Patient Name: Daiana Spencer Referring Collaborative Care Provider: Mell Strong Outreach Attempt # 1 Collaborative Events Specialist attempted to reach patient by phone for follow-up behavioral health services. Patient was not available and Collaborative Events Specialist was unable to leave a voicemail due to mailbox being full. Collaborative Events Specialist will continue with outreach attempts and remain available as needed. BALDEV Pandey Collaborative Events Specialist I June 08, 2024 06/08/2024 0.30 Minutes -- Patient Contact 06/08/2024 1.00 Minutes -- Clinical Case Preparation 06/08/2024 2.00 Minutes -- Registry Management Primary Diagnosis: F43.23 - Adjustment disorder with mixed anxiety and depressed mood Date: 06/08/2024 Patient Name: Daiana Spencer Referring [facility] Care Provider: Mell Strong Outreach Attempt # 2 [facility] [place] patient to check in and schedule next [facility]. Outcome of contact: Unable to leave voicemail, inbox is full Michelle Burgess [facility] Clinical Excellence Lead [facility] [phone] Michelle Burgess [facility] Clinical Excellence Lead II June 12, 2024 06/12/2024 6.00 Minutes -- Collaborative PC Review Primary Diagnosis: F43.23 - Adjustment disorder with mixed anxiety and depressed mood Date: 06/12/2024This patient has been included in the psychiatric caseload review activities and consulted on as neededPatient's clinical history, symptoms, and medications reviewed for psychiatric consultation with LAW Guardado APRN. Recommendations added to electronic health record. BALDEV Pandey Collaborative Events Specialist I 06/12/2024 0.30 Minutes -- Patient Contact 06/12/2024 2.00 Minutes -- Patient Related Correspondence 06/12/2024 2.00 Minutes -- Registry Management Primary Diagnosis: F43.23 - Adjustment disorder with mixed anxiety and depressed mood Date: 06/12/2024 Patient Name: Daiana Spencer Referring [facility] Provider: F43.23 - Adjustment disorder with mixed anxiety and depressed mood Outreach Attempt # 3 Collaborative Events Specialist attempted to reach patient by phone for follow-up behavioral health services. Patient was not available and Collaborative Events Specialist was unable to leave a voicemail due to mailbox being full and email not being correct . Collaborative Events Specialist will continue with outreach attempts and remain available as needed. BALDEV Pandey Collaborative Events Specialist I June 13, 2024 06/13/2024 5.00 Minutes -- PCP Communication 06/13/2024 2.00 Minutes -- Registry Management Primary Diagnosis: F43.23 - Adjustment disorder with mixed anxiety and depressed mood Collaborative Events Specialist contacted PCP about discharge. Andrzej Monte, I wanted to reach out and let you know I made 3 outreach attempts to Daiana and have not heard back. Her inbox is full so I am unable to leave messages and her email is bouncing emails back. If she wants to resume services in the future, she is more than welcome to do so. Please let me know if you have any questions. Thanks, Kathrin Hutchins [facility] Collaborative Events Specialist [facility] [phone] [facility] Collaborative Events Specialist Saige 06/13/2024 5.00 Minutes -- Clinical Case Preparation 06/13/2024 5.00 Minutes -- Registry Management Primary Diagnosis: F43.23 - Adjustment disorder with mixed anxiety and depressed mood Discharge from [facility] Date: 06/13/2024 Patient Name: Daiana Spencer Referring [facility] Provider: Mell Strong This patient has been included in the psychiatric caseload review activities and consulted on as needed Date of discontinuation of services: 06/13/2024 Reason for discontinuation of services: Disengaged from care. Collaborative Events Specialist was unable to leave VM or emails. Collaborative Events Specialist messaged PA. Baseline Depression Symptoms: Mild Baseline FERNANDEZ-7: 9 Final Depression Symptoms: Mild Final FERNANDEZ-7: 6 Summary of services provided, goals met, progress made: Patient was able to practice opposite action skill and work on effective communication with her mom. Resources that can be utilized, or referrals made: Can resume services in the future if needed. Episode resolved in registry: yes Patient can be referred again by provider at any time to re-engage in services. Kathrin Costello [facility] Collaborative Events Specialist I documented in this encounter Plan of Treatment Upcoming Encounters Date Type Department Care Team (Late st Contact Info) Description 12/04/2024 10:45 AM DIRECTOR OF NEUROLOGY Office Visit [facility] OBGYN [address] [place] [address] [place] [address] [place] [address] 01/31/2025 2:30 PM DIRECTOR OF NEUROLOGY Office Visit [facility] OBGYN [address] [place] [address] [place] [address] [address] [place] [address] documented as of this encounter Visit Diagnoses Not on filedocumented in this encounter Additional Health Concerns Assessment Noted Time PHQ-9 Depression Total Score: 3 01/10/20 24 2:22 PM DIRECTOR OF NEUROLOGY documented as of this encounter Care Teams Restaurant Server Relationship Specialty Start Date End Date Gadiel Gustafson MD [address] [place] [address] PCP - General Internal Medicine 09/29/23 documented as of this encounter
--- OUTSIDE RECORDS SUMMARY | 2024-12-02 23:08 | XMS_ITS | Encounter Summary ---
Author Organization [facility] Address [address] [place] [address] Care Team Providers Care Turf Farmer Name Role Phone Gadiel Gustafson MD Primary Care Provider [phone] Reason for Referral * Laboratory Services (Routine) - Open Specialty Diagnoses / Procedures Referred By Contac t Referred To Contact Diagnoses Vaginal odor Screen for STD (sexually transmitted disease) Procedures VAGINOSIS/[place] [address] [place] [address] Referral ID Status Reason Start Date Expiration Date Visits Re quested Visits Authorized [id number] Open 05/10/2024 06/10/2025 1 1 Reason for Visit * Reason Comments Vaginal Problem hormones * Laboratory Services (Routine) - Open Specialty Diagnoses / Procedures Referred By Contnavdeep t Referred To Contact Diagnoses Vaginal odor Screen for STD (sexually transmitted disease) Procedures VAGINOSIS/[place] [address] [address] [place] [address] Referral ID Status Reason Start Date Expiration Date Visits Re quested Visits Authorized [id number] Open 05/10/2024 06/10/2025 1 1 Encounter Details Date Type Department Care Team (Late st Contact Info) Description 05/10/2024 10:45 AM CDT Office Visit [facility] OBGYN [address] [place] [address] [place] [address] [address] [place] [address] Vaginal odor (Primary Dx); Acne, unspecified acne type; Hormone imbalance; Screen for STD (sexually transmitted disease); BV (bacterial vaginosis); Yeast infection Social History Tobacco Use Types Packs/Day Years [...] Sign Reading Time Taken Comments Blood Pressure 108/66 05/10/2024 10:40 AM CDT Pulse - - Temperature - - Respiratory Rate - - Oxygen Saturation - - Inhaled Oxygen Concentration - - Weight 50.1 kg (110 lb 6.4 oz) 05/10/2024 10:40 AM CDT Height - - Body Mass Index 19.56 01/10/2024 2:23 PM SOFTWARE SALES documented in this encounter Progress Notes * Kelsey Olivera MD - 05/10/2024 10:41 AM CDT CC: Vaginal odor HPI: Daiana Spencer is a 23 y.o. , Patient's last menstrual period was 04/27/2024. presenting to discuss a vaginal odor. Has a new partner and has recently noticed a new vaginal odor. Did havesome increase in thin discharge as well but reports it has been a bit better today. Also reports worsening acne and a feeling that her hormones are off. 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 She feels that ever since then things haven't been the same and feels off. PROJECT MANAGEMENT DIRECTOR History: - Menses: regular q month without intermenstrual spotting. - Patient's last menstrual period was 04/27/2024. - Sexual activity: Yes - Contraception: None - Pap Hx: - last pap: NILM (2023) - hx abnormal paps: No - STIs: none - PROJECT MANAGEMENT DIRECTOR Surgery: None - PROJECT MANAGEMENT DIRECTOR Hx: OAB OB History Para Term AB Living 0 0 0 0 0 0 SAB IAB Ectopic Multiple Live Births 0 0 0 0 0 Current Outpatient Medications: metroNIDAZOLE (FLAGYL) 500 mg tablet, Take 1 Tablet (500 mg) by mouth 2 times daily for 7 days., Disp: 14 Tablet, Rfl: 0 fluconazole (DIFLUCAN) 150 mg tablet, Take 1 Tablet (150 mg) by mouth one time only for 1 dose. Maytake second dose if needed, Disp: 1 Tablet, Rfl: 1 buPROPion HCL (WELLBUTRIN XL) 150 mg Extended Release 24 hour tablet, Take 1 Tablet (150 mg) by mouth daily in the morning., Disp: 30 Tablet, Rfl: 3 meloxicam (MOBIC) 7.5 mg tablet, Take 7.5 mg by mouth daily. Once a month, Disp: , Rfl: Cyclobenzaprine 7.5 mg Tablet, Take 7.5 mg by mouth daily., Disp: , Rfl: clindamycin phosphate (CLEOCIN T) 1 % Gel, Apply to affected area 2 times daily., Disp: 30 Gram, Rfl: 3 No Known Allergies Social History Tobacco Use Smoking status: Never Smokeless tobacco: Never Vaping Use Vaping status: Every Day Substance Use Topics Alcohol use: Yes Drug use: Never TOBACCO COUNSELING She is not a tobacco/nicotine user. ROS As in HPI. All other systems negative Physical Exam: Vitals: 05/10/24 1040 BP: 108/66 Weight: 50.1 kg (110 lb 6.4 oz) Body mass index is 19.56 kg/m??. GEN: NAD, well-developed PULM: Regular breathing rate and effort NEURO: A&Ox3 PELVIC: normal external genitalia, vulva, vagina, cervix, uterus and adnexa. Discharge consistent with BV. Labs: No results found for this visit on 05/10/24. ASSESSMENT/PLAN: Problem List Items Addressed This Visit Integumentary Acne Relevant Orders [facility]SH ESTRADIOL TESTOSTERONE FREE AND TOTAL Other Visit Diagnoses Vaginal odor - Primary Relevant Orders VAGINOSIS/VAGINITIS PANEL PLUS Hormone imbalance Relevant Orders FSH ESTRADIOL TESTOSTERONE FREE AND TOTAL Screen for STD (sexually transmitted disease) Relevant Orders VAGINOSIS/VAGINITIS PANEL PLUS BV (bacterial vaginosis) Relevant Medications metroNIDAZOLE (FLAGYL) 500 mg tablet Yeast infection Relevant Medications fluconazole (DIFLUCAN) 150 mg tablet Vaginal odor: - Vag plus sent - Flagyl sent for BV - Gets yeast infections with abx so fluconazole sent as well Hx Unknown Medication: - 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 Feels off sincethen with worsening acne - Labs drawn today RTC in PRN Kelsey Olivera MD documented in this encounter Plan of Treatment Upcoming Encounters Date Type Department Care Team (Late st Contact Info) Description 12/04/2024 10:45 AM SOFTWARE SALES Office Visit [facility] OBGYN [address] [place] [address] [place] [address] [facility] [address], [place] [address] 01/31/2025 2:30 PM SOFTWARE SALES Office Visit [facility] OBGYN [address] [address] [facility] [address] [place] [address] [place] [address] [address] [facility] [place] [address] documented as of this encounter Procedures Procedure Name Priority Date/Time Associated Diagnosis Comments TESTOSTERONE FREE AND TOTAL Routine 05/10/2024 11:05 AM CDT Acne, unspecified acne type Hormone imbalance ESTRADIOL Routine 05/10/2024 11:05 AM CDT Acne, unspecified acne type Hormone imbalance FSH Routine 05/10/2024 11:05 AM CDT Acne, unspecified acne type Hormone imbalance VAGINOSIS/VAGINITIS PANEL PLUS Routine 05/10/2024 11:02 AM CDT Vaginal odor Screen for STD (sexually transmitted disease) documented in this encounter Results * TESTOSTERONE FREE AND TOTAL (05/10/2024 11:05 AM CDT) TESTOSTERONE 18 2 - 45 ng/dL [facility] Comment: For additional information, please refer to https://ShoutNow.Healint/faq/HJR974 (This link is being provided for informational/educational purposes only.) (Note) This test was developed and its analytical performance characteristics have been determined by [employer]. It has not been cleared or approved by the FDA. This assay has been validated pursuant to the CLIA regulations and is used for clinical purposes. TESTOSTERONE FREE 3 0.1 - 6.4 pg/mL [facility] Comment: (Note) This test was developed and its analytical performance characteristics have been determined by [employer]. It has not been cleared or approved by the FDA. This assay has been validated pursuant to the CLIA regulations and is used for clinical purposes. [facility] [address] [place] [address],[address] [place] [address] [phone] Melany Xiong MD, PhD FASTING:NO FASTING: NO Test Performed at: [facility] [address] [place] [address], [address] [place] [address] ??[phone] Melany Xiong MD,PhD Blood 05/10/2024 11:0 5 AM CDT 05/10/2024 11:07 AM CDT Kelsey Olivera MD CHEMISTRY OR DERABLES [facility] [phone] [facility] [address] [place] [address], [address] [place] [phone] * ESTRADIOL (05/10/2024 11:05 AM CDT) ESTRADIOL 41 pg/mL [facility] Comment: ?Reference Range ?Follicular Phase: ?19-144 ?Mid-Cycle: ? 64-357 ?Luteal Phase: ?56-214 ?Postmenopausal: ?< or = 31 ? Reference range established on post-pubertal patient population. No pre-pubertal reference range established using this assay. For any patients for whom low Estradiol levels are anticipated (e.g. males, pre-pubertal children and hypogonadal/post-menopausal females), the [facility] Estradiol, Ultrasensitive, LCMSMS assay is recommended (order code [id number]). ?? Please note: patients being treated with the drug fulvestrant (Faslodex(R)) have demonstrated significant interference in immunoassay methods for estradiol measurement. The cross reactivity could lead to falsely elevated estradiol test results leading to an inappropriate clinical assessment of estrogen status. [employer] order code [id number], Ultrasensitive LC/MS/MS demonstrates negligible cross reactivity with fulvestrant. FASTING:NO FASTING: NO Test Performed at: [facility] ??[phone] Angelia DaS ilva MD Blood 05/10/2024 11:0 5 AM CDT 05/10/2024 11:07 AM CDT Kelsey Olivera MD CHEMISTRY OR DERABLES Performing Organization Address City/State/[facility] Co de Phone Number [facility] [phone] [facility] [employer] [address] * FSH (05/10/2024 11:05 AM CDT) FSH 7.3 mIU/mL [facility] Comment: ?Reference Range ? Follicular Phase ? 2.5-10.2 ? Mid-cycle Peak ? 3.1-17.7 ? Luteal Phase ? 1.5- 9.1 ? Postmenopausal ? 23.0-116.3 ? Test Performed at: [facility] ??[phone] Angelia Da Silva MD Blood 05/10/2024 11:0 5 AM CDT 05/10/2024 11:07 AM CDT Kelsey Olivera MD CHEMISTRY OR DERABLES [facility] [phone] [facility] [employer] [address] * (ABNORMAL) VAGINOSIS/VAGINITIS PANEL PLUS (05/10/2024 11:02 AM CDT) BACTERIAL VAGINOSIS POSITIVE(A) NEGATIVE [facility] ASHIA SPECIES NOT DETECTED NOT DETECTED [facility] ASHIA GLABRATA NOT DETECTED NOT DETECTED [facility] Comment: Ashia species C. albicans, C. tropicalis, C. parapsilosis, and/or C. dubliniensis can be detected, but not differentiated, in the Ashia spp. result. TRICHOMONAS VAGINALIS (TV), TMA NOT DETECTED NOT DETECTED [facility] C TRAC RNA NOT DETECTED NOT DETECTED [facility] N.GONORRHOEAE RNA, TMA NOT DETECTED NOT DETECTED [facility] Comment: For additional information, please refer to https://education.Healint/faq/RGN002 (This link is being provided for information/ educational purposes only.) Test Performed at: [facility] ??[phone] Angelia Da Silva MD Genital SPECIMEN FROM VAGINA / Unknown 05/10/2024 11:02 AM CDT 05/11/2024 2:54 AM CDT Kelsey Olivera MD MICROBIOLOGY - GENERAL ORDERABLES [facility] [phone] [facility] [address] [address] documented in this encounter Visit Diagnoses Diagnosis Vaginal odor- Primary Unspecified symptom associated with female genital organs Acne, unspecified acne type Hormone imbalance Unspecified endocrine disorder Screen for STD (sexually transmitted disease) Screening examination for venereal disease BV (bacterial vaginosis) Vaginitis and vulvovaginitis, unspecified Yeast infection Other and unspecified mycoses documented in this encounter Additional Health Concerns Assessment Noted Time PHQ-9 Depression Total Score: 3 01/10/20 24 2:22 PM SOFTWARE SALES documented as of this encounter Care Teams Turf Farmer Relationship Specialty Start Date End Date Gadiel Gustafson MD [address] [place] [address] PCP - General Internal Medicine 09/29/23 documented as of this encounter
--- OUTSIDE RECORDS SUMMARY | 2024-12-02 23:08 | XMS_ITS | Encounter Summary ---
Author Organization [facility] Address [address] [place] [address] Care Team Providers Care Pastry Finisher Name Role Phone Gadiel Gustafson MD Primary Care Provider [phone] Reason for Visit * Reason Comments E&M Of Chronic Disease(s) Needs paperwor k filled out for Encounter Details Date Type Department Care Team (Late st Contact Info) Description 07/26/2024 1:40 PM CDT Office Visit [facility] Primary Care - [address] [place] [address] Mell Strong, [facility] [address] [place] [address] Chronic bilateral low back pain with left-sided sciatica (Primary Dx) Social History Tobacco Use Types Packs/Day Years [...] Sign Reading Time Taken Comments Blood Pressure 98/62 07/26/2024 1:53 PM CDT Pulse 81 07/26/2024 1:53 PM CDT Temperature 36.4 ??C (97.5 ??F) 07/26/2024 1:53 PM CD T Respiratory Rate - - Oxygen Saturation 98% 07/26/2024 1:53 PM CDT Inhaled Oxygen Concentration - - Weight 50.6 kg (111 lb 8 oz) 07/26/2024 1:53 PM CDT Height 160 cm (5' 3 ) 07/26/2024 1:53 PM CDT Body Mass Index 19.75 07/26/2024 1:53 PM CDT documented in this encounter Progress Notes * Mell Strong, BONE PROCESS OPERATOR - 07/26/2024 1:40 PM CDT HISTORY OF PRESENT ILLNESS Daiana Spencer, a 24 y.o. y.o. female presenting with a Chief Complaint of Chief Complaint Patient presents with E&M Of Chronic Disease(s) Needs paperwork filled out for Subjective HPI Daiana Ahmadi is a 24 y.o. female who presents for an acute visit. Last time, we recommended: Continue counseling. Start Wellbutrin daily in AM. Recommend vaping cessation. Limit caffeine in diet. Stay hydrated. Psychiatry referral. [facility] referral. [employer] ocean biologist pharmacogenetics testing ordered. Your kit will be mailed to you. [email or web address] for more information and financial assistance. Looks like the test costs $295. Patient submitted HPI (if performed, immediately below): HPI Here today to have profile request packet filled out Has been seeing neurosurgeon Dr. 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 Nerve damage left leg Has been seeing neurosurgery for this for the last 4 years Limitations include - running, heavy lifting, among others Leaving for [facility] in August 2024 - needs packet completed to make her exempt from PT test that is required before she leaves for [facility] Problem Chronic Bilateral Low Back Pain With Left-Sided Sciatica - Location: low back - Duration: 4 years - Known injury: yes, injured in the at basic training - Severity: 8 /10, 0/10 when resting - Sciatica/radiculopathy: yes, left leg, shooting pain - Symptoms of fever, chills, urinary symptoms, bowel symptoms, arm/leg weakness/numbness?: leg weakness bilaterally - Medications include: meloxicam, Flexeril - Non-pharmacological therapies tried: ice, completed physical therapy - Sees neurosurgeon Dr. Mcbride TOBACCO COUNSELING She was counseled to discontinue tobacco/nicotine use. This medical record reflects the history of present illness as obtained by myself in discussion with the patient. Patient Active Problem List Diagnosis Code Acne L70.9 Chronic bilateral low back pain with left-sided sciatica M54.42, G89.29 Depression with anxiety F41.8 Current Outpatient Medications on File Prior to Visit Medication Sig Dispense Refill meloxicam (MOBIC) 7.5 mg tablet Take 7.5 mg by mouth daily. Once a month Cyclobenzaprine 7.5 mg Tablet Take 7.5 mg by mouth daily. clindamycin phosphate (CLEOCIN T) 1 % Gel Apply to affected area 2 times daily. 30 Gram 3 buPROPion HCL (WELLBUTRIN XL) 150 mg Extended Release 24 hour tablet Take 1 Tablet (150 mg) by mouth daily in the morning. (Patient not taking: Reported on 07/26/2024) 90 Tablet 0 No current facility-administered medications on file prior to visit. Past Surgical History: Procedure Laterality Date PT DENIES RELEVANT SURGICAL HISTORY Family History Problem Relation Name Age of Onset Healthy Father Healthy Mother Ovarian Cancer Mother 37 had a full hysterectomy Healthy Sister Healthy Brother Breast Cancer Neg Hx Colon Cancer Neg Hx Uterine Cancer Neg Hx Social History Socioeconomic History Marital status: Single Number of children: 0 Tobacco Use Smoking status: Never Smokeless tobacco: Never Vaping Use Vaping status: Every Day Substance and Sexual Activity Alcohol use: Yes Drug use: Never Sexual activity: Yes Partners: Male control/protection: None REVIEW OF SYSTEMS Review of Systems Constitutional: Negative for chills, fatigue, fever and unexpected weight change. HENT: Negative for congestion and sore throat. Respiratory: Negative for cough and shortness of breath. Cardiovascular: Negative for chest pain. Gastrointestinal: Negative for abdominal pain, blood in stool, constipation, diarrhea and nausea. Genitourinary: Negative for dysuria and hematuria. Musculoskeletal: Positive for back pain. Negative for arthralgias and myalgias. Skin: Negative for rash. Neurological: Negative for dizziness and headaches. Psychiatric/Behavioral: Positive for sleep disturbance. Negative for dysphoric mood. The patient isnot nervous/anxious. Objective PHYSICAL EXAM Vitals: 07/26/24 1353 BP: 98/62 Pulse: 81 Temp: 97.5 ??F (36.4 ??C) TempSrc: Temporal SpO2: 98% Weight: 50.6 kg (111 lb 8 oz) Height: 5' 3 (1.6 m) BMI Readings from Last 3 Encounters: 07/26/24 19.75 kg/m?? 05/10/24 19.56 kg/m?? 01/26/24 19.03 kg/m?? Physical Exam Vitals and nursing note reviewed. Constitutional: General: She is not in acute distress. Appearance: She is well-developed. She is not diaphoretic. HENT: Head: Normocephalic and atraumatic. Right Ear: External ear normal. Left Ear: External ear normal. Neck: Thyroid: No thyromegaly. Cardiovascular: Rate and Rhythm: Normal rate and regular rhythm. Heart sounds: Normal heart sounds. No murmur heard. Pulmonary: Effort: Pulmonary effort is normal. No respiratory distress. Breath sounds: Normal breath sounds. No wheezing. Abdominal: Palpations: Abdomen is soft. Musculoskeletal: Lumbar back: Decreased range of motion. Positive left straight leg raise test. Skin: General: Skin is warm and dry. Neurological: Mental Status: She is alert and oriented to person, place, and time. Motor: Weakness (left leg) present. Assessment ASSESSMENT and PLAN: Problem List Items Addressed This Visit Musculoskeletal Chronic bilateral low back pain with left-sided sciatica - Primary The patient's pain is not controlled. Previous imaging reviewed (if available). Medication changes per orders. Exercise encouraged. If no improvement with conservative measures, will refer for additional imaging and / or physical therapy. If this fails, refer to spinal surgeon or pain management for evaluation. List of orders placed this encounter: No orders of the defined types were placed in this encounter. Patient Instructions Patient Instructions Will look over packet for [employer] App. Parts of this note were generated using medical dictation software, Shaser. Please excuse any typographical errors that may have occurred as a result of this. TALISHA PEOPLES documented in this encounter Miscellaneous Notes * Assessment & Plan Note - Mell Strong FNP - 07/26/2024 3:24 PM CDT Associated Problem(s): Chronic bilateral low back pain with left-sided sciatica The patient's pain is not controlled. Previous imaging reviewed (if available). Medication changes per orders. Exercise encouraged. If no improvement with conservative measures, will refer for additional imaging and / or physical therapy. If this fails, refer to spinal surgeon or pain management for evaluation. * Patient Instructions - Mell Strong FNP - 07/26/2024 2:27 PM CDT Will look over packet for . documented in this encounter Plan of Treatment Upcoming Encounters Date Type Department Care Team (Late st Contact Info) Description 12/04/2024 10:45 AM RUBBER TUBING SPLICER Office Visit [facility] [address] [address] [address] [address] [place] [address], [place] [address] 01/31/2025 2:30 PM RUBBER TUBING SPLICER Office Visit [facility] OBGYN [address] [address] [facility] [address] [address] [place] [address] [place] [address] [address] [place] [address] [place] [address] documented as of this encounter Visit Diagnoses Diagnosis Chronic bilateral low back pain with left-sided sciatica- Primary documented in this encounter Additional Health Concerns Assessment Noted Time PHQ-9 Depression Total Score: 3 01/10/20 24 2:22 PM RUBBER TUBING SPLICER documented as of this encounter Care Teams Pastry Finisher Relationship Specialty Start Date End Date Gadiel Gustafsno MD [address] [place] [address] PCP - General Internal Medicine 09/29/23 documented as of this encounter
--- OUTSIDE RECORDS SUMMARY | 2024-12-02 23:08 | XMS_ITS | Encounter Summary ---
Author Organization [facility] Address [address] [place] [address] Care Team Providers Care Clock Assembler Name Role Phone Gadiel Gustafson MD Primary Care Provider [phone] Reason for Visit * Reason Onset Date Comments CoCM Psychiatric Recommendations 06/12/2024 Encounter Details Date Type Department Care Team (Latest Contact Info) Description 06/12/2024 Patient Outreach [facility] [address] [facility] [place] [phone] Kriss Pereira APRN [address] [place] [address] [facility] Psychiatric Recommendations Social History Tobacco Use Types Packs/Day Years [...] encounter Miscellaneous Notes * Telephone Encounter - Kriss Pereira APRN - 06/12/2024 2:45 PM CDT Psychiatric Consultation - [facility] Health Information Reviewed: medical records, referring provider's notes, collaborative care clinicians notes and systematic case review with collaborative childcare attendant. Reason for Consultation: Depression and Anxiety Clinical concerns discussed: Patient is not interested in medication adjustments as of last sessionwith Collaborative Hadoop Architect. Has been disengaged. Diagnosis: F43.23 - Adjustment disorder with mixed anxiety and depressed mood Recommendations: Patient has been disengaged. Collaborative Hadoop Architect will attempt one more outreach before discharging patient. No medication recommendations. Patient does not appear to be an acute risk of harm to self or others and is appropriate for collaborative care services. The above treatment considerations and suggestions are based on consultations with the patient's collaborative care treatment team and a review of information available in the patient's medical record. I have not personally examined the patient. Referring provider was made aware of clinical recommendations. All recommendations should be implemented with consideration of the patient???s relevant prior history and current clinical status. Krsis Pereira APRN, PMHNP- Psychiatric Digital Media Planner documented in this encounter Plan of Treatment Upcoming Encounters Date Type Department Care Team (Late st Contact Info) Description 12/04/2024 10:45 AM COOK FAST FOOD Office Visit [facility] OBGYN [address] [place] [address] [place] [address] [place] [address] 01/31/2025 2:30 PM COOK FAST FOOD Office Visit [facility] OBGYN [address] [place] [address] [place] [address] [place] [address] documented as of this encounter Visit Diagnoses Not on filedocumented in this encounter Additional Health Concerns Assessment Noted Time PHQ-9 Depression Total Score: 3 01/10/20 24 2:22 PM COOK FAST FOOD documented as of this encounter Care Teams Clock Assembler Relationship Specialty Start Date End Date Gadiel Gustafson MD [address] [place] [address] PCP - General Internal Medicine 09/29/23 documented as of this encounter
--- OUTSIDE RECORDS SUMMARY | 2024-12-02 23:08 | XMS_ITS | Referral Summary ---
Author Organization [facility] Address [address] [place] [address] Care Team Providers Care Hardware Test Engineer Name Role Phone Yumiko Jones MD Primary Care Provider [phone] Source Comments [facility],non-[facility] Affiliates and Associated Physician Practices is amultiple site organization consisting of ambulatory clinics and hospital sitesin [place], [place], [place] and [place]. This disclosure is being madepursuant to the Care Everywhere program and may not contain all information available regarding this patient. Last updated 18.[facility] Allergies No known active allergies Medications [...] Probe Positive(A) Negative 04/11/2019 8:05 AM CDT [facility]CRO[facility] GC Amplified Probe Negative Negative 04/11/2019 8:05 AM CDT [facility] MICROBIOLOGY Microbiology URINE / Unknown Collection / Unknown 04/10/2019 1:41 PM CDT 04/10/2019 1:57 PM CDT Narrative [facility]CRO[facility] - 04/11/2019 8:05 AM CDT Results based on detection/no detection of ribosomal RNA by amplified method. Boy De Santiago MD LAB - MICROBIOLOGY ORDERABLES [facility] [address] [place] [address], [facility] [phone] from Last 3 Months or Most Recently Relevant to Health Maintenance Advance Directives * Full Code (Latest Code Status on File) Date Activated Date Inactivated Comments 04/09/2019 8:31 PM 04/14/2019 11:19 AM Care Teams Hardware Test Engineer Relationship Specialty Start Date End Date Yumiko Jones MD [address] [place] [address] [address] [place] [address] PCP - General Pediatrics 04/09/19
--- OUTSIDE RECORDS SUMMARY | 2024-12-02 23:08 | XMS_ITS | Data Portability ---
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 Lab CMP, serum or plasma 2020 021 [facility] [address], [address], [place], [address], 06:13:24 HbA1c (hemoglobin A1c), blood 2020 021 [facility], [facility] [address], [address], [place], [address], 06:13:26 urinalysis complete, reflex culture 2020 021 [facility], [facility] [address], [address], [place], [address], 06:07:13 rf (rheumatoid factor) + anti-ccp abs, serum 2020 021 [facility], [facility] [address], [address], [place], [address], 06:13:26 SHILPA (antinuclea r antibodies) screen, serum 2020 [facility] PANTO[facility], Markus [address], [address], [place], [address], 06:13:28 erythrocyte sedimentati on rate by westergren method 2020 [facility]AHSA PANTOJA, Markus [address], [address], [place], [address], 06:13:29 C-reactive protein, quantitativ e, serum or plasma 2020 [facility] F[facility]EDALEX[facility], [facility], [address], [place], [address], 06:13:30 CBC w/ auto diff 2020 [facility]ANT[facility], [facility] [address], [address], [place], [address], 06:13:24 TSH, ultra-sensi tive, serum 2020 [facility] FREEDALEXIS, [facility], [address], [place], [address], 06:13:28 vitamin D, 25-hydroxy, total, serum 2020 [facility] FREEDALEXIS, Markus sherlyn [address], [address], [place], [address], 06:13:27 iron + total iron-bindin g capacity (TIBC), serum 2020 [facility] FREEDALEXIS, [facility], [address], [place], [address], 06:13:25 ferritin, serum or plasma 2020 [facility], [address] [facility], [address], [place], [address], 06:13:29 bacterial vaginosis + vaginitis panel, vaginal 2020 [facility], [address] [facility] [address], [address], [place], [address], 09:13:09 urinalysis, dipstick 2020 In-Office Order, Internal Use Only DO Not Attach Compendium DO Not Attach Compendium, Do Not Delete/merge, [id number] 15:43:15 culture, urine 2020 [facility], [address] [facility] [address], [address], [place], [address], 09:13:10 Referral rheumatolog ist referral - Hypermobili ty of joints, joint pain, muscle weakness 2020 [email or web address] Ginger Llanse MD, [address], [facility] [address], [place], [address], 2 08:00:43 orthopedic surgeon referral - Returning patient for Dr. Escoto for continued hip and knee pain 2020 [email or web address] [place], [address] [address], [address], [place], [address], 2 08:02:00 Procedures None recorded. Surgeries None recorded. Imaging None recorded. Medication Orders Flonase Allergy Relief 50 mcg/actuati on nasal spray,suspe nsion 2020 021 [facility][id number], [address], [place], [address], 15:17:13 Patient TargetsNo targets recorded. 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 Escoto for continued hip and knee pain Referring Physician: Rosina Frye Curtain Stretcher Assembler, Encounter Date: 10/21/2021 Results Created Date Observation Date Name Description Value Unit Range Abnormal Flag Note LastModifiedBy Organization Detail LastModifiedTime 10/21/20 21 10/22/2021 CBC WITH DIFFE RENTI AL/PL ATELE T WBC 10.0 x10e3 /uL 3.4-10 .8 Not Available [facility] ([facility]) [address] [place], [address], 10/23/2021 06:13:24 10/21/2010/22/2021 CBC WITH DIFFE RENTI AL/PL ATELE T RBC 4.23 x10e6 /uL 3.77-5 .28 Not Available [facility] ([facility]) [address] [place], [address], 10/23/2021 06:13:24 10/21/20 21 10/22/2021 CBC WITH DIFFE RENTI AL/PL ATELE T hemoglobin 12.6 g/dL 11.1-1 5.9 Not Available [facility] ([facility]) [address] [place], [address], 10/23/2021 06:13:24 10/21/20 21 10/22/2021 CBC WITH DIFFE RENTI AL/PL ATELE T hematocrit 38.5 % 34.0-4 6.6 Not Available [facility] ([facility]) [address] [facility], [place], [address], 10/23/2021 06:13:24 10/21/20 21 10/22/2021 CBC WITH DIFFE RENTI AL/PL ATELE T MCV 91 fL 79-97 Not Available [facility] ([facility]) [address] [place], [address], 10/23/2021 06:13:24 10/21/20 21 10/22/2021 CBC WITH DIFFE RENTI AL/PL ATELE T MCH 29.8 pg 26.6-3 3.0 Not Available [facility] ([facility]) [address] [facility], [place], [address], 10/23/2021 06:13:24 10/21/20 21 10/22/2021 CBC WITH DIFFE RENTI AL/PL ATELE T MCHC 32.7 g/dL 31.5-3 5.7 Not Available [facility] ([facility]) [address] [place], [address], 10/23/2021 06:13:24 10/21/20 21 10/22/2021 CBC WITH DIFFE RENTI AL/PL ATELE T RDW 12.0 % 11.7-1 5.4 Not Available [facility] ([facility]) [address] [place], [address], 10/23/2021 06:13:24 10/21/20 21 10/22/2021 CBC WITH DIFFE RENTI AL/PL ATELE T platelets 299 x10e3 /uL 150-45 0 Not Available [facility] ([facility]) [address] [place], [address], 10/23/2021 06:13:24 10/21/20 21 10/22/2021 CBC WITH DIFFE RENTI AL/PL ATELE T neutrophils 75 % not estab. Not Available [facility] ([facility]) [address] [facility], [place], [address], 10/23/2021 06:13:24 10/21/20 21 10/22/2021 CBC WITH DIFFE RENTI AL/PL ATELE T lymphs 16 % not estab. Not Available [facility] ([facility]) [address] [facility], [place], [address], 10/23/2021 06:13:24 10/21/20 21 10/22/2021 CBC WITH DIFFE RENTI AL/PL ATELE T monocytes 6 % not estab. Not Available [facility] ([facility]) [address] [place], [address], 10/23/2021 06:13:24 10/21/20 21 10/22/2021 CBC WITH DIFFE RENTI AL/PL ATELE T eos 3 % not estab. Not Available [facility] ([facility]) [address] [facility], [place], [address], 10/23/2021 06:13:24 10/21/20 21 10/22/2021 CBC WITH DIFFE RENTI AL/PL ATELE T basos 0 % not estab. Not Available [facility] ([facility]) [address] [facility], [place], [address], 10/23/2021 06:13:24 10/21/20 21 10/22/2021 CBC WITH DIFFE RENTI AL/PL ATELE T immature cells [employer] Not Available [facility] ([facility]) [address] [place], [address], 10/23/2021 06:13:24 10/21/20 21 10/22/2021 CBC WITH DIFFE RENTI AL/PL ATELE T neutrophils (absolute) 7.4 x10e3 /uL 1.4-7. 0 above high normal Not Available [facility] ([facility]) [address] [place], [address], 10/23/2021 06:13:24 10/21/20 21 10/22/2021 CBC WITH DIFFE RENTI AL/PL ATELE T lymphs (absolute) 1.6 x10e3 /uL 0.7-3. 1 Not Available [facility] ([facility]) [address] [place], [address], 10/23/2021 06:13:24 10/21/20 21 10/22/2021 CBC WITH DIFFE RENTI AL/PL ATELE T monocytes(ab solute) 0.6 x10e3 /uL 0.1-0. 9 Not Available [facility] ([facility]) [address] [place], [address], 10/23/2021 06:13:24 10/21/20 21 10/22/2021 CBC WITH DIFFE RENTI AL/PL ATELE T eos (absolute) 0.3 x10e3 /uL 0.0-0. 4 Not Available [facility] ([facility]) [address] [place], [address], 10/23/2021 06:13:24 10/21/20 21 10/22/2021 CBC WITH DIFFE RENTI AL/PL ATELE T baso (absolute) 0.0 x10e3 /uL 0.0-0. 2 Not Available [facility] ([facility]) [address] [place], [address], 10/23/2021 06:13:24 10/21/20 21 10/22/2021 CBC WITH DIFFE RENTI AL/PL ATELE T immature granulocytes 0 % not estab. Not Available [facility] ([facility]) [address] [place], [address], 10/23/2021 06:13:24 10/21/20 21 10/22/2021 CBC WITH DIFFE RENTI AL/PL ATELE T immature grans (abs) 0.0 x10e3 /uL 0.0-0. 1 Not Available [facility] ([facility]) [address] [facility], [place], [address], 10/23/2021 06:13:24 10/21/20 21 10/22/2021 CBC WITH DIFFE RENTI AL/PL ATELE T NRBC [employer] Not Available [facility] ([facility]) [address] [facility], [place], [address], 10/23/2021 06:13:24 10/21/20 21 10/22/2021 CBC WITH DIFFE RENTI AL/PL ATELE T hematology comments: [employer] Not Available [facility] ([facility]) [address] [facility], [place], [address], 10/23/2021 06:13:24 10/21/20 21 10/22/2021 COMP. METAB OLIC PANEL (14) glucose 83 mg/dL 65-99 Not Available [facility] ([facility]) [address] [place], [address], 10/23/2021 06:13:24 10/21/20 21 10/22/2021 COMP. METAB OLIC PANEL (14) BUN 8 mg/dL 6-20 Not Available [facility] ([facility]) [address] [place], [address], 10/23/2021 06:13:24 10/21/20 21 10/22/2021 COMP. METAB OLIC PANEL (14) creatinine 0.72 mg/dL 0.57-1 .00 Not Available [facility] ([facility]) [address] [place], [address], 10/23/2021 06:13:24 10/21/20 21 10/22/2021 COMP. METAB OLIC PANEL (14) eGFR if nonafricn AM 122 mL/mi n/1.7 3 >59 Not Available [facility] ([facility]) [address] [facility], [place], [address], 10/23/2021 06:13:24 10/21/20 21 10/22/2021 COMP. METAB OLIC PANEL (14) eGFR if africn AM 140 mL/mi n/1.7 3 >59 In accor dance with recom menda tions from the NKF-A SN Task force , [facility] is in the proce ss of updat ing its eGFR calcu latio n to the 2020 CKD-E PI creat inine equat ion that estim ates kidne y funct ion witho ut a race varia ble. Not Available [facility] ([facility]) [address] [facility], [place], [address], 10/23/2021 06:13:24 10/21/20 21 10/22/2021 COMP. METAB OLIC PANEL (14) BUN/creatini ne ratio 11 08-21 Not Available [facility] ([facility]) [address] [facility], [place], [address], 10/23/2021 06:13:24 10/21/20 21 10/22/2021 COMP. METAB OLIC PANEL (14) sodium 141 mmol/ L 134-14 4 Not Available [facility] ([facility]) [address] [place], [address], 10/23/2021 06:13:24 10/21/20 21 10/22/2021 COMP. METAB OLIC PANEL (14) potassium 4.2 mmol/ L 3.5-5. 2 Not Available [facility] ([facility]) [address] [place], [address], 10/23/2021 06:13:24 10/21/20 21 10/22/2021 COMP. METAB OLIC PANEL (14) chloride 104 mmol/ L 96-106 Not Available [facility] ([facility]) [address] [facility], [place], [address], 10/23/2021 06:13:24 10/21/20 21 10/22/2021 COMP. METAB OLIC PANEL (14) carbon dioxide, total 25 mmol/ L Not Available [facility] ([facility]) [address] [place], [address], 10/23/2021 06:13:24 10/21/20 21 10/22/2021 COMP. METAB OLIC PANEL (14) calcium 9.3 mg/dL 8.7-10 .2 Not Available [facility] ([facility]) [address] [place], [address], 10/23/2021 06:13:24 10/21/20 21 10/22/2021 COMP. METAB OLIC PANEL (14) protein, total 7.2 g/dL 6.0-8. 5 Not Available [facility] ([facility]) [address] [place], [address], 10/23/2021 06:13:24 10/21/20 21 10/22/2021 COMP. METAB OLIC PANEL (14) albumin 4.4 g/dL 3.9-5. 0 Not Available [facility] ([facility]) [address] [place], [address], 10/23/2021 06:13:24 10/21/20 21 10/22/2021 COMP. METAB OLIC PANEL (14) globulin, total 2.8 g/dL 1.5-4. 5 Not Available [facility] ([facility]) [address] [place], [address], 10/23/2021 06:13:24 10/21/20 21 10/22/2021 COMP. METAB OLIC PANEL (14) A/G ratio 1.6 1.2-2. 2 Not Available [facility] ([facility]) [address] [place], [address], 10/23/2021 06:13:24 10/21/20 21 10/22/2021 COMP. METAB OLIC PANEL (14) bilirubin, total 0.4 mg/dL 0.0-1. 2 Not Available [facility] ([facility]) [address] [place], [address], 10/23/2021 06:13:24 10/21/20 21 10/22/2021 COMP. METAB OLIC PANEL (14) alkaline phosphatase 68 IU/L 42-106 Ple ase note refer ence inter chucho nelson e Not Available [facility] ([facility]) [address] [place], [address], 10/23/2021 06:13:24 10/21/20 21 10/22/2021 COMP. METAB OLIC PANEL (14) AST (SGOT) 16 IU/L 0-40 Not Available [facility] ([facility]) [address] [place], [address], 10/23/2021 06:13:24 10/21/20 21 10/22/2021 COMP. METAB OLIC PANEL (14) ALT (SGPT) 11 IU/L 0-32 Not Available [facility] ([facility]) [address] [place], [address], 10/23/2021 06:13:24 10/21/20 21 10/22/2021 IRON AND TIBC iron bind.cap.(TI BC) 260 ug/dL 250-45 0 Not Available [facility] ([facility]) [address] [place], [address], 10/23/2021 06:13:25 10/21/20 21 10/22/2021 IRON AND TIBC UIBC 215 ug/dL 131-42 5 Not Available [facility] ([facility]) [address] [place], [address], 10/23/2021 06:13:25 10/21/20 21 10/22/2021 IRON AND TIBC iron 45 ug/dL 27-159 Not Available [facility] ([facility]) [address] [place], [address], 10/23/2021 06:13:25 10/21/20 21 10/22/2021 IRON AND TIBC iron saturation 17 % 15-55 Not Available [facility] ([facility]) [address] [place], [address], 10/23/2021 06:13:25 10/21/20 21 10/22/2021 RHEUM ATOID ARTHR ITIS PROFI LE rheumatoid factor (rf) <10.0 IU/mL <14.0 Not Available [facility] ([facility]) [address] [place], [address], 10/23/2021 06:13:26 10/21/20 21 10/22/2021 RHEUM ATOID ARTHR ITIS PROFI LE anti-ccp Ab, IgG/IgA 4 units 0-19 Negat collin <20 Weak posit collin 20 - 39 Moder ate posit collin 40 - 59 Stron g posit collin >59 Not Available [facility] ([facility]) [address] [place], [address], 10/23/2021 06:13:26 10/21/20 21 10/22/2021 HEMOG LOBIN A1C hemoglobin A1C 5.0 % 4.8-5. 6 Predi abete s: 5.7 - 6.4 Diabe sanford: >6.4 Glyce [place] contr ol for adult s with diabe sanford: <7.0 Not Available [facility] ([facility]) [address] [place], [address], 10/23/2021 06:13:26 10/21/20 21 10/22/2021 VITAM IN D, 25-HY DROXY vitamin D, 25-hydroxy 23.5 NG/mL 30.0-1 00.0 below low normal Vitam in D defic iency has been defin ed by the Insti tute of Medic ine and an Endoc rine Socie ty pract ice guide line as a level of serum 25-OH vitam in D less than 20 ng/mL (1,2) . The Endoc rine Socie ty went on to furth er defin e vitam in D insuf ficie ncy as a level betwe en 21 and 29 ng/mL (2). 1. IOM (Inst itute of Medic ine). 2009. Dieta ry refer ence intak es for calci um and D. Erwin ann [place]: [facility] . 2. Davida marie MF, Santos holley [place], Griselda off-F errar i SANCHEZ, et al. Evalu ation , treat ment, and preve ntion of vitam in D defic iency : an Endoc rine Socie ty clini abimael pract ice guide line. JCEM. 2010; 96(7) :1911 -30. Not Available [facility] ([facility]) [address] [place], [address], 10/23/2021 06:13:27 10/21/20 21 10/22/2021 TSH RFX ON ABNOR MAL TO FREE T4 TSH 1.920 uIU/m L 0.450- 4.500 Not Available [facility] ([facility]) [address] [place], [address], 10/23/2021 06:13:27 10/21/20 21 10/22/2021 SHILPA W/REF MADY IF POSIT COLLIN SHILPA direct Negati ve negati ve Not Available [facility] ([facility]) [address] [place], [address], 10/23/2021 06:13:28 10/21/20 21 10/22/2021 SEDIM ENTAT ION RATE- WESTE RGREN sedimentatio n rate-westerg nishant 7 mm/HR 0-32 Not Available [facility] ([facility]) [address] [place], [address], 10/23/2021 06:13:29 10/21/20 21 10/22/2021 BRIANA TIN ferritin 120 NG/mL 15-77 above high normal Not Available [facility] ([facility]) [address] [place], [address], 10/23/2021 06:13:29 10/21/20 21 10/22/2021 C-ARABELLA CTIVE PROTE IN, QUANT C-reactive protein, quant 11 mg/L 0-10 above high normal Not Available [facility] ([facility]) [address] [facility], [place], [address], 10/23/2021 06:13:30 10/21/2010/22/2021 UA/M W/RFL X CULTSHUBHAM HERNANDEZ specific gravity 1.018 1.005- 1.030 Not Available [facility] ([facility]) [address] [place], [address], 10/24/2021 06:07:13 10/21/2010/22/2021 UA/M W/RFL X SHUBHAM CALI pH 7.5 5.0-7. 5 Not Available [facility] ([facility]) [address] [place], [address], 10/24/2021 06:07:13 10/21/2010/22/2021 UA/M W/RFL X SHUBHAM CALI urine-color Yellow yellow Not Available [facility] ([facility]) [address] [place], [address], 10/24/2021 06:07:13 10/21/2010/22/2021 UA/M W/RFL X SHUBHAM CALI appearance Cloudy clear abnormal Not Available [facility] ([facility]) [address] [place], [address], 10/24/2021 06:07:13 10/21/20 21 10/22/2021 UA/M W/RFL X CULTU RE, ROUTI NE WBC esterase 3+ negati ve abnormal Not Available [facility] ([facility]) [address] [place], [address], 10/24/2021 06:07:13 10/21/20 21 10/22/2021 UA/M W/RFL X CULTU RE, ROUTI NE protein Trace negati ve/tra ce Not Available [facility] ([facility]) [address] [place], [address], 10/24/2021 06:07:13 10/21/2010/22/2021 UA/M W/RFL X CULTU RE, ROUTI NE glucose Negati ve negati ve Not Available [facility] ([facility]) [address] [facility], [place], [address], 10/24/2021 06:07:13 10/21/2010/22/2021 UA/M W/RFL X CULTU RE, ROUTI NE ketones Negati ve negati ve Not Available [facility] ([facility]) [address] [place], [address], 10/24/2021 06:07:13 10/21/20 21 10/22/2021 UA/M W/RFL X CULTU RE, ROUTI NE occult blood Negati ve negati ve Not Available [facility] ([facility]) [address] [place], [address], 10/24/2021 06:07:13 10/21/20 21 10/22/2021 UA/M W/RFL X CULTU RE, ROUTI NE bilirubin Negati ve negati ve Not Available [facility] ([facility]) [address] [place], [address], 10/24/2021 06:07:13 10/21/20 21 10/22/2021 UA/M W/RFL X CULTU RE, ROUTI NE urobilinogen ,semi-qn 0.2 mg/dL 0.2-1. 0 Not Available [facility] ([facility]) [address] [facility], [place], [address], 10/24/2021 06:07:13 10/21/20 21 10/22/2021 UA/M W/RFL X CULTU RE, ROUTI NE nitrite, urine Negati ve negati ve Not Available [facility] ([facility]) [address] [facility], [place], [address], 10/24/2021 06:07:13 10/21/20 21 10/22/2021 UA/M W/RFL X CULTU RE, ROUTI NE microscopic examination See below: Micro scopi c was indic ated and was perfo rmed. Not Available [facility] ([facility]) [address] [facility], [place], [address], 10/24/2021 06:07:13 10/21/20 21 10/22/2021 UA/M W/RFL X CULTU RE, ROUTI NE WBC 0-5 /hpf 0 - 5 Not Available [facility] ([facility]) [address] [facility], [place], [address], 10/24/2021 06:07:13 10/21/20 21 10/22/2021 UA/M W/RFL X CULTU RE, ROUTI NE RBC None seen /hpf 0 - 2 Not Available [facility] ([facility]) [address] [place], [address], 10/24/2021 06:07:13 10/21/2010/22/2021 UA/M W/RFL X CULTU RE, ROUTI NE epithelial cells (non renal) >10 /hpf 0 - 10 abnormal Not Available [facility] ([facility]) [address] [place], [address], 10/24/2021 06:07:13 10/21/20 21 10/22/2021 UA/M W/RFL X CULTU RE, ROUTI NE epithelial cells (renal) [employer] Not Available [facility] ([facility]) [address] [facility], [place], [address], 10/24/2021 06:07:13 10/21/20 21 10/22/2021 UA/M W/RFL X CULTU RE, ROUTI NE casts None seen /lpf none seen Not Available [facility] ([facility]) [address] [facility], [place], [address], 10/24/2021 06:07:13 10/21/20 21 10/22/2021 UA/M W/RFL X CULTU RE, ROUTI NE cast type [employer] Not Available [facility] ([facility]) [address] [facility], [place], [address], 10/24/2021 06:07:13 10/21/20 21 10/22/2021 UA/M W/RFL X CULTU RE, ROUTI NE crystals [employer] Not Available [facility] ([facility]) [address] [facility], [place], [address], 10/24/2021 06:07:13 10/21/20 21 10/22/2021 UA/M W/RFL X CULTU RE, ROUTI NE crystal type [employer] Not Available [facility] ([facility]) [address] [facility], [place], [address], 10/24/2021 06:07:13 10/21/20 21 10/22/2021 UA/M W/RFL X CULTU RE, ROUTI NE mucus threads [employer] Not Available [facility] ([facility]) [address] [facility], [place], [address], 10/24/2021 06:07:13 10/21/20 21 10/22/2021 UA/M W/RFL X CULTU RE, ROUTI NE bacteria Few none seen/f ew Not Available [facility] ([facility]) [address] [facility], [place], [address], 10/24/2021 06:07:13 10/21/20 21 10/22/2021 UA/M W/RFL X CULTU RE, ROUTI NE yeast [employer] Not Available [facility] ([facility]) [address] [facility], [place], [address], 10/24/2021 06:07:13 10/21/20 21 10/22/2021 UA/M W/RFL X CULTU RE, ROUTI NE trichomonas [employer] Not Available [facility] ([facility]) [address] [facility], [place], [address], 10/24/2021 06:07:13 10/21/20 21 10/22/2021 UA/M W/RFL X CULTU RE, ROUTI NE comment [employer] Not Available [facility] ([facility]) [address] [facility], [place], [address], 10/24/2021 06:07:13 10/21/20 21 10/22/2021 UA/M W/RFL X CULTU RE, ROUTI NE microscopic examination [employer] Not Available [facility] ([facility]) [address] [facility], [place], [address], 10/24/2021 06:07:13 10/21/20 21 10/22/2021 UA/M W/RFL X CULTU RE, ROUTI NE urinalysis reflex Commen t This speci men has refle xed to a Urine Cultu re. Not Available [facility] ([facility]) [address] [facility], [place], [address], 10/24/2021 06:07:13 10/21/20 21 10/24/2021 UA/M W/RFL X CULTU RE, ROUTI NE urine culture, routine Final report abnormal Not Available [facility] ([facility]) [address] [facility], [place], [address], 10/24/2021 06:07:13 10/21/20 21 10/24/2021 UA/M W/RFL X CULTU RE, ROUTI NE result 1 Commen t abnormal Beta hemol ytic Strep tococ cus, group B 25,00 0-50, 000 colon y formi ng units per mL Penic illin and ampic illin are drugs of choic e for treat ment of beta- hemol ytic strep tococ abimael infec tions . Susce ptibi lity testi ng of penic illin s and other beta- lacta m agent s appro adrianna by the FDA for treat ment of beta- hemol ytic strep tococ abimael infec tions need not be perfo rmed routi ness becau se nonsu scept ible isola [place] are extre jessica rare in any beta- hemol ytic strep tococ cus and have not been repor nima for Strep tococ cus pyoge lesly (grou p A). (CLSI ) Not Available [facility] ([facility]) [address] [place], [address], 10/24/2021 06:07:13 11/17/20 21 11/19/2021 NUSWA B VAGIN ITIS PLUS (VG+) atopobium vaginae Low - 0 score Not Available [facility] ([facility]) [address] [place], [address], 11/19/2021 09:13:09 11/17/20 21 11/19/2021 NUSWA B VAGIN ITIS PLUS (VG+) bvab 2 Low - 0 score Not Available [facility] ([facility]) [address] [place], [address], 11/19/2021 09:13:09 11/17/20 21 11/19/2021 NUSWA B VAGIN ITIS PLUS (VG+) megasphaera 1 Low - 0 score Calcu late total score by carlos enrique couch the 3 indiv idual bacte rial vagin osis (BV) marke r score s toget her. Total score is inter prete d as follo ws: Total score 0-1: Indic ates the absen ce of BV. Total score 2: Indet ermin ate for BV. Addit ional clini abimael data shoul d be evalu ated to estab jordan a diagn osis. Total score 3-6: Indic ates the prese nce of BV. This test was devel oped and its perfo rmanc e adrian cteri stics deter mined by [facility]. It has not been clear ed or appro adrianna by the Food and Drug Admin istra tion. Not Available [facility] ([facility]) [address] [place], [address], 11/19/2021 09:13:09 11/17/2011/19/2021 NUSWA B VAGIN ITIS PLUS (VG+) erika albicans, TREVOR Negati ve negati ve Not Available [facility] ([facility]) [address] [place], [address], 11/19/2021 09:13:09 11/17/20 21 11/19/2021 NUSWA B VAGIN ITIS PLUS (VG+) erika glabrata, TREVOR Negati ve negati ve Not Available [facility] ([facility]) [address] [place], [address], 11/19/2021 09:13:09 11/17/2011/19/2021 NUSWA B VAGIN ITIS PLUS (VG+) trich vag by TREVOR Negati ve negati ve Not Available [facility] ([facility]) [address] [place], [address], 11/19/2021 09:13:09 11/17/2011/19/2021 NUSWA B VAGIN ITIS PLUS (VG+) chlamydia trachomatis, TREVOR Negati ve negati ve Not Available [facility] ([facility]) [address] [place], [address], 11/19/2021 09:13:09 11/17/20 21 11/19/2021 NUSWA B VAGIN ITIS PLUS (VG+) neisseria gonorrhoeae, TREVOR Negati ve negati ve Not Available [facility] ([facility]) [address] [facility], [place], [address], 11/19/2021 09:13:09 11/17/20 21 11/19/2021 URINE CULTU RE, ROUTI NE urine culture, routine Final report Not Available [facility] ([facility]) [address] [facility], [place], [address], 11/19/2021 09:13:10 11/17/20 21 11/19/2021 URINE CULTU RE, ROUTI NE result 1 Commen t Mixed uroge nital hansa 25,00 0-50, 000 colon y formi ng units per mL Not Available [facility] ([facility]) [address] [facility], [place], [address], 11/19/2021 09:13:10 11/17/20 21 11/17/2021 urina lysis , dipst ick Leukocytes Trace Not Available In-Offi ce Order Internal Use Only DO Not Attach Compendium DO Not Attach Compendium, Do Not Delete/merge, [id number] 11/17/2021 15:27:33 11/17/20 21 11/17/2021 urina lysis , dipst ick Nitrite negati ve Not Available In-Office Order Internal Use Only DO Not Attach Compendium DO Not Attach Compendium, Do Not Delete/merge, [id number] 11/17/2021 15:27:33 11/17/20 21 11/17/2021 urina lysis , dipst ick Urobilinogen .2 Not Available In-Of fice Order Internal Use Only DO Not Attach Compendium DO Not Attach Compendium, Do Not Delete/merge, [id number] 11/17/2021 15:27:33 11/17/20 21 11/17/2021 urina lysis , dipst ick Protein Negati ve Not Available In-Office Order Internal Use Only DO Not Attach Compendium DO Not Attach Compendium, Do Not Delete/merge, [id number] 11/17/2021 15:27:33 11/17/20 21 11/17/2021 urina lysis , dipst ick pH 6.0 Not Available In-Office Order Internal Use Only DO Not Attach Compendium DO Not Attach Compendium, Do Not Delete/merge, [id number] 11/17/2021 15:27:33 11/17/20 21 11/17/2021 urina lysis , dipst ick Blood Modera te Not Available In-Office Order Internal Use Only DO Not Attach Compendium DO Not Attach Compendium, Do Not Delete/merge, [id number] 11/17/2021 15:27:33 11/17/20 21 11/17/2021 urina lysis , dipst ick Specific [place] 1.030 Not Available In-Off ice Order Internal Use Only DO Not Attach Compendium DO Not Attach Compendium, Do Not Delete/merge, [id number] 11/17/2021 15:27:33 11/17/20 21 11/17/2021 urina lysis , dipst ick Ketone Negati ve Not Available In-Office Order Internal Use Only DO Not Attach Compendium DO Not Attach Compendium, Do Not Delete/merge, [id number] 11/17/2021 15:27:33 11/17/20 21 11/17/2021 urina lysis , dipst ick Bilirubin Negati ve Not Available In-Office Order Internal Use Only DO Not Attach Compendium DO Not Attach Compendium, Do Not Delete/merge, [id number] 11/17/2021 15:27:33 11/17/20 21 11/17/2021 urina lysis , dipst ick Glucose Negati ve Not Available In-Office Order Internal Use Only DO Not Attach Compendium DO Not Attach Compendium, Do Not Delete/merge, [id number] 11/17/2021 15:27:33 11/17/20 21 11/17/2021 urina lysis , dipst ick Appearance Slight ly Cloudy Not Available In-Office Order Internal Use Only DO Not Attach Compendium DO Not Attach Compendium, Do Not Delete/merge, [id number] 11/17/2021 15:27:33 11/17/20 21 11/17/2021 urina lysis , dipst ick Color Dark Yellow Not Available In-Office Order Internal Use Only DO Not Attach Compendium DO Not Attach Compendium, Do Not Delete/merge, [id number] 11/17/2021 15:27:33 12/03/19 22 12/03/2021 US, pelvi s, trans abdom inal + trans vagin al No observ ation record ed. [facility] ([facility]) [address] [place], [address], 12/04/2021 16:38:21 01/07/20 23 01/06/2023 CT, abdom en + pelvi s, w/ contr ast No observ ation record ed. [address] [facility] [address] [place], [address], 01/07/2023 20:11:15 Result Notes None recorded. Problems Name Problem SNOMED Code Status Onset Date Resolution Date Notes Provider Name and Address Organization Details Recorded Time Cyst of ovary 05816562 Active 022 11/2021: 2x1 cm R simple ovarian cyst Not Available [facility] 20:46:11 Problem Notes None recorded. Procedures Surgical History None recorded. Imaging Results Imaging Date Name Status LastModified by Organization Details LastModified Time 12/03/2021 US, pelvis, transabdominal + transvaginal completed [facility] ([facility]) [address] [place], [address], 12/04/2021 16:38:21 01/06/2023 CT, abdomen + pelvis, w/ contrast completed [address] [facility] [address] [place], [address], 01/07/2023 20:11:15 Procedure Notes None recorded. Medical Equipment None Reported. Allergies No known drug allergies Medications Name Sig Start Date Stop Date Status Note LastModified by Organization Details LastModified Time prednisone 10 mg tablet TAKE 1 TAB 3 TIMES DAILY X3 DAYS, 1 TAB TWICE DAILY X2 DAYS, 1 TAB ONCE DAILY X1 DAY 10/21 completed Not Available Not Available Not Available ibuprofen 800 mg tablet Take 1 tablet 3 times a day by oral route as needed for 10 days. 06/16 completed Not Available Not Available Not Available fluconazole 150 mg tablet TAKE 1 TABLET BY MOUTH ONCE, THEN WAIT 72 HOURS IF SYMPTOMS PERSIST, TAKE THE 2ND TABLET 10/21 completed Not Available Not Available Not Available metronidazo le 500 mg tablet 06/16 completed Not Available Not Available Not Available tretinoin 0.05 % topical cream APPLY A PEA-SIZED AMOUNT TOPICALLY TO THE ENTIRE FACE NIGHTLY active Not Available Not Available No t Available sulfamethox azole 800 mg-trimetho prim 160 mg tablet TAKE 1 TABLET BY MOUTH TWICE A DAY 10/21 completed Not Available Not Available Not Available amoxicillin 500 mg tablet TAKE 1 TABLET BY MOUTH THREE TIMES DAILY UNTIL GONE 06/16 completed Not Available Not Available Not Available meloxicam 7.5 mg tablet TAKE 1 TABLET BY MOUTH EVERY DAY active Not Available Not Available No t Available clindamycin 1 % topical gel APPLY TO AFFECTED AREA EVERY DAY 10/21 completed Not Available Not Available Not Available levofloxaci n 750 mg tablet TAKE 1 TABLET BY MOUTH EVERY 24 HOURS FOR 5 DAYS 06/16 completed Not Available Not Available Not Available fluticasone propionate 50 mcg/actuati on nasal spray,suspe nsion [place] 1 spray every day by intranasa l route as needed for 30 days. active Not Available Not Available No t Available clotrimazol e 1 % topical cream APPLY 1 APPLICATI ON ONTO THE SKIN TWICE DAILY FOR 14 DAYS 10/21 completed Not Available Not Available Not Available amoxicillin 875 mg-potassiu m clavulanate 125 mg tablet 10/21 completed Not Available Not Available Not Available clindamycin 1 % lotion APPLY TOPICALLY TO FACE TWICE DAILY active Not Available Not Available No t Available azithromyci n 500 mg tablet TAKE 2 TABLETS BY MOUTH TODAY AT THE SAME TIME 10/21 completed Not Available Not Available Not Available cyclobenzap rine 5 mg tablet TAKE 1 TABLET BY MOUTH EVERY 8 HOURS active Not Available Not Available No t Available Calcium 600 + D(3) 600 mg-10 mcg (400 unit) tablet Take 1 tablet twice a day by oral route as directed for 100 days. 2020 active Not Available Not Available Not Avai lable Tri Femynor (28) 0.18 mg(7)/0.215 mg(7)/0.25 mg(7)-35 mcg tablet TAKE 1 TABLET BY MOUTH EVERY DAY 10/21 completed Not Available Not Available Not Available COVID-19 test specimen collection TEST DIRECTED 10/21 completed Not Available Not Available Not Available Vitals Date Recorded Body height Body mass index (BMI) Percentile per age and sex Body mass index (BMI) Body weight Heart rate Body temperature Oxygen saturation Oxygen saturation in Arterial blood by Pulse oximetry Systolic blood pressure Diastolic blood pressure Provider Name and Address Organization Details Last Updated DateTime 160.02 cm 13 % 18.8 kg/m2 43681.1 9 g 80 /min 98.9 [degF] 100 % 100 % 102 mm[Hg] 64 mm[Hg] Jody [facility] 14:25:34 Date Recorded Body height Body mass index (BMI) Body mass index (BMI) Percentile per age and sex Body weight Heart rate Body temperature Oxygen saturation Oxygen saturation in Arterial blood by Pulse oximetry Systolic blood pressure Diastolic blood pressure Provider Name and Address Organization Details Last Updated DateTime 1 160.02 cm 18.5 kg/m2 10 % 43308.4 1 g 82 /min 98.5 [degF] 100 % 100 % 102 mm[Hg] 62 mm[Hg] J[facility] 15:04:02 Social History Question Answer Notes LastModified by Organizat ion Details LastModified Time Tobacco Smoking Status Smoker, Current Status Unknown Jody Moffett [facility] null, [facility] 10/21/2021 14:27:53 Do You Have An Advance Directive? No Information n ot available 10/21/2021 What Is Your Level Of Alcohol Consumption? None Information not available 10/21/2021 In The 14 Days Before Symptom Onset, Have You Had Close Contact With A Laboratory-confirm ed COVID-19 While That Case Was Ill? No Information n ot available 10/21/2021 In The 14 Days Before Symptom Onset, Have You Had Close Contact With A Person Who Is Under Investigation For COVID-19 While That Person Was Ill? No Information not available 10/21/2021 Have You Been To An Area Known To Be High Risk For COVID-19? No Information not available 10/21/2021 Are You Currently Employed? Yes Information not available 10/21/2021 What Was The Date Of Your Most Recent Tobacco Screening? 11/17/2021 Information not available 11/17/2021 What Is Your Relationship Status? Single Information not available 10/21/2021 Are You Sexually Active? Yes Information not available 10/21/2021 Do You Have Smoke And Carbon Monoxide Detectors In Your Home? Yes Information not available 10/21/2021 Are You Passively Exposed To Smoke? No Information no t available 10/21/2021 Do You Use Any Illicit Or Recreational Drugs? No Information not available 10/21/2021 Has Tobacco Cessation Counseling Been Provided? Yes Information not available 10/21/2021 On What Date Was Tobacco Cessation Counseling Provided? 11/17/2021 Information not available 11/17/2021 Sex: Female Functional Status None recorded. Mental Status None recorded. Family History Relationship Description Onset Age of this Age Resolved Age Notes LastModified by Organization Details LastModified Time Father No current problems or disability [email or web address] Not available 10/21 14:27:09 Mother No current problems or disability [email or web address] Not available 10/21 14:27:09 Medical History Condition Response Coronary Artery Disease N Atrial Fibrillation N High Blood Pressure N Depression Y COPD N Blood Clots N Anxiety Disorder Y Muscle, Joint, or Bone Problems Y Acid Reflux (GERD) N Cancer N Stroke N High Cholesterol N Liver Disease N Headaches N Kidney or Bladder Problems N Thyroid Problems N GI Problems N Skin Problems N Anemia N Heart Attack ([place]) N Diabetes N Seizures/Epilepsy N Asthma N Allergies Y Hepatitis N Heart Failure N Osteoporosis N Gynecological History Statement/Question Response Flow Moderate Date of LMP 11/17/2021 Frequency of Cycle (Q days) 28 Menses Monthly Y STIs/STDs Y Duration of Flow (days) 7 Age at Menarche 15 Current Control Method None LMP Definite Obstetrics History GPAL:G 0 P 0 0 0 0 Past Encounters Encounter ID Performer Location Encounter Start Date Encounter Closed Date Diagnosis/Indication Diagnosis SNOMED-CT Code Diagnosis ICD10 Code [id number] [facility] ([facility]ult [facility]) [address] [place] [id number] 10/21/2021 14:11:00 10/22/2021 08:26:00 Allergic disposition 616683033 T78.40XA Anterior knee pain 94848 3006 M25.569 Adult heal th examination 948631229 Z00.00 Increased frequency of urination 084435298 R35.0 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 [id number] [facility] (Adult Med) [address] [place] [address] 11/17/2021 14:54:54 11/18/2021 07:47:07 Anterior knee pain 307700132 M25.569 Acute urin diana tract infection 670654715 N39.0 Vaginal di scharge problem 965289137 N89.9 Health Concerns Section Related Observation LastModified by Organization Detai ls LastModified Time None Recorded Concern Status LastModified by Organization Details LastModified Time None Recorded Advance Directives Directive N: Payers Encounter Date Sequence Insurance Name Policy Number Policy Roman Covered Member ID Roman Member ID Guarantor Name 10/21/2021 1 [employer] [place] ON OR AFTER 2020 (MEDICAID REPLACEMENT - HMO) Daiana Spencer [id number] Daiana Spencer 11/17/2021 1 [employer] 2020 (MEDICAID REPLACEMENT - HMO) Daiana Spencer [id number] Daiana Spencer Notes Date Note Type Note Provider Name and Address Organization Details Recorded Time 10/21/2021 text/html 21 yo F presents as new patient to establish care. Pt complains of bilateral hip and knee pain along with allergies. 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 approximately. Pain began in her L hip, then progressed bilaterally. Pain is located in her posterior hip, sometimes occurring in the groin region as well. Hip pain is described as an aching pain that worsens with activity and resolves with rest. Pain also improves with topical aleve. She endorses occasional popping in her hips as well. Knee pain began after the hip pain and is similar in nature. She notes knee pain is most bothersome when bending. Her knees feel unstable, like they are going to pop to the side. She feels as though her muscles are weaker than most her age. She endorses being hyperflexible in multiple joints. She was previously seen by orthopedic surgeon Dr. Escoto in [place] for her pain. She states she had xrays which showed inflammation. She completed PT for 3 weeks, ending approximately 1 month ago. She states the plan with Dr. Escoto after completing PT was MRI or steroid injections. She missed her follow up appointment, though, and has been unable to reach the office since. Pt also notes history of seasonal allergies. She states Flonase works well for her, but is too expensive OTC. She has tried Claritin and Zyrtec with no relief. Her symptoms are seasonal and include itchy, watery eyes, nasal congestion and sneezing, and sore throat. [facility] Attn: [address] [place], [address], [place] [facility] 10/21/2021 18:21:52 11/17/2021 text/html 21 yo F presents today for vaginal discharge complaint. Complaining of intermittent episodes of external vaginal irritation and white, thick clumpy vaginal discharge over the last 3 months. Went to UC 3-4 weeks ago, no exam completed, was told it was likely a yeast infection, and prescribed topical and oral yeast infection medication. The medications resolved her symptoms for a short time and then they seemed to return again recently while being on the antibiotics for her UTI. States the discharge can drip down her legs at times. Today not having discharge or irritation, started her menstrual cycle yesterday. Denies foul smell. History of urinary frequency since her childhood years and urinary urgency over the last few years. Notes the started her on oral medication which did help but was taken off after a few months since she was so young. At last visit, admitted to a few episodes of urinary incontinence because unable to make it to the bathroom. Admits to drinking 4-5 bottles of water per day. Will use the restroom at least every 2 hours. No prior history of UTIs, last visit urine culture grew Group B strep and was treated with amoxicillin. She denies an improvement in her urinary frequency and urgency after taking the medication. Denies dysuria, hematuria, and urinary hesitatancy In regards to her bilateral hip and knee pain, admits to not reaching out to see Ortho or completing any of the stretching/exercise s since I saw her last. Admits to continued intermittent pain and low back pain. [facility] Attn: [employer] [facility], [place], [address], [facility] 11/17/2021 15:45:51 OBGyn Episode No OBEpisode recorded.
--- OUTSIDE RECORDS SUMMARY | 2024-12-02 23:08 | XMS_ITS | Patient Health Summary ---
Author Organization [facility] Address [address] [place] [address] Care Team Providers Care Editor Farm Journal Name Role Phone Yumiko Jones MD Primary Care Provider Note from [facility],non-owned Affiliates and Associated Physician Practices is amultiple site organization consisting of ambulatory clinics and hospital sitesin [place], [place], [place] and [place]. This disclosure is being madepursuant to the Care Everywhere program and may not contain all information available regarding this patient. Last updated 18.[facility] Allergies No known active [...] Probe Positive(A) Negative 04/11/2019 8:05 AM CDT [facility] GC Amplified Probe Negative Negative 04/11/2019 8:05 AM CDT [facility] Microbiology URINE / Unknown Collection / Unknown 04/10/2019 1:41 PM CDT 04/10/2019 1:57 PM CDT Narrative [facility] - 04/11/2019 8:05 AM CDT Results based on detection/no detection of ribosomal RNA by amplified method. Boy De Santiago MD LAB - MICROBIOLOGY ORDERABLES [facility] [address] [place] [address], [facility] [phone] * TSH REFLEX FREE T4 (04/10/2019 6:23 AM CDT) TSH 1.1363 0.35 - 4.94 ulU/mL 04/10/2019 7:32 AM CDT [facility] Blood BLOOD SPECIMEN / Unknown Venipuncture / Unknown 04/10/2019 6:23 AM CDT 04/10/2019 6:34 AM CDT Frieda Morris SUPPLY CHAIN BUYER-CUSHION BUILDER LAB - CHEMISTRY O RDERABLES Performing Organization Address [facility] Co de Phone Number [facility] [id number] [place] [address] * HEMOGLOBIN A1C (04/10/2019 6:23 AM CDT) Pathologist [facility] Hemoglobin A1c 4.8 4.0 - 6.1 % 04/10/2019 7:23 AM CDT [facility] Estimated Average Glucose 91 mg/dL 04/10/2019 7:23 AM CDT [facility] Blood BLOOD SPECIMEN / Unknown Venipuncture / Unknown 04/10/2019 6:23 AM CDT 04/10/2019 6:34 AM CDT Narrative [facility] - 04/10/2019 7:23 AM CDT Attention clinician: ??Reference Range has changed. Frieda Morris SUPPLY CHAIN BUYER-CUSHION BUILDER LAB - CHEMISTRY O RDERABLES Performing Organization Address [facility] Co de Phone Number [facility] [address] [place] [address] * CBC W AUTO DIFFERENTIAL (04/10/2019 6:23 AM CDT) WBC 5.5 4.5 - 14.5 x10E9/L 04/10/2019 6:41 AM CDT [facility] WBC Corrected x10E9/L 04/10/2019 6:41 AM CDT [facility] RBC 4.32 4.10 - 5.10 x10E12/L 04/10/2019 6:41 AM CDT [facility] Hemoglobin 12.5 12.0 - 16.0 [...] - 9.5 fl 04/10/2019 6:41 AM CDT [facility] Neutrophils % 32.6 24.0 - 66.0 % 04/10/2019 6:41 AM CDT [facility] Lymphocytes % 49.9 22.0 - 61.0 % 04/10/2019 6:41 AM CDT [facility] Monocytes % 9.0 3.0 - 15.0 % 04/10/2019 6:41 AM CDT [facility] Eosinophils % 7.2 0.0 - 10.0 % 04/10/2019 6:41 AM CDT [facility] Basophils % 1.1 % 04/10/2019 6:41 AM CDT [facility] Immature Granulocytes 0.2 % 04/10/2019 [...] - 0.29 x10E9/L 04/10/2019 6:41 AM CDT [facility] Immature Granulocytes Absolute 0.01 0 - 0.15 x10E9/L 04/10/2019 6:41 AM CDT [facility] nRBC Auto 0 /100 WBC 04/10/2019 6:41 AM T [facility] Blood BLOOD SPECIMEN / Unknown Venipuncture / Unknown 04/10/2019 6:23 AM CDT 04/10/2019 6:34 AM CDT Frieda Morris SUPPLY CHAIN BUYER-CUSHION BUILDER LAB - HEMATOLOGY ORDERABLES [facility] [address] [place] [address] * COMPREHENSIVE METABOLIC PANEL (04/10/2019 6:23 AM CDT) Glucose 87 74 - 106 mg/dL 04/10/2019 7:08 AM [facility] Sodium 139 136 - 145 mmol/L 04/10/2019 7:08 AM [facility] Potassium 3.9 3.5 - 5.1 mmol/L 04/10/2019 7:08 AM T [facility] Chloride 105 98 - 107 mmol/L 04/10/2019 7:08 AM [facility] CO2 25 20 - 28 mmol/L 04/10/2019 7:08 AM [facility] Calcium 9.6 8.4 - 10.2 mg/dL 04/10/2019 7:08 AM [facility] Anion Gap 9 8 - 16 mmol/L 04/10/2019 7:08 AM [facility] Comment: Assay measuring below lower limits of linearity, calculated result not valid in this circumstance. BUN 12 7 - 18.7 mg/dL 04/10/2019 7:08 AM [facility] Creatinine 1.00 0.55 - 1.02 mg/dL 04/10/2019 7:08 AM [facility] Alkaline Phosphatase 40 40 - 150 U/L 04/10/2019 7:08 AM T [facility] ALT 14 13 - 61 U/L 04/10/2019 7:08 AM T [facility] AST 15 5 - 34 U/L 04/10/2019 7:08 AM CDT [facility] Protein Total 7.1 6.4 - 8.3 gm/dL 04/10/2019 7:08 AM CDT [facility] Albumin 4.1 3.4 - 5.0 gm/dL 04/10/2019 7:08 AM CDT [facility] Bilirubin Total 0.6 0.2 - 1.0 mg/dL 04/10/2019 7:08 AM CDT [facility] eGFR by MDRD mL/min/1.7 3m2 04/10/2019 7:08 AM CDT [facility] Comment: eGFR calculations are not performed for children under 18 years old. eGFR by MDRD mL/min/1.7 3m2 04/10/2019 7:08 AM CDT [facility] Comment: eGFR calculations are not performed for children under 18 years old. Blood BLOOD SPECIMEN / Unknown Venipuncture / Unknown 04/10/2019 6:23 AM CDT 04/10/2019 6:34 AM CDT Narrative [facility] - 04/10/2019 7:08 AM CDT Attention clinician: BUN Reference Range has changed. Frieda Morris SUPPLY CHAIN BUYER-CUSHION BUILDER LAB - CHEMISTRY O RDERABLES [facility] [address] [place] [address] * (ABNORMAL) LIPID PROFILE (04/10/2019 6:23 AM CDT) Cholesterol 195 <200 mg/dL 04/10/2019 7:08 AM CDT [facility] Triglycerides 74 <150 mg/dL 04/10/2019 7:08 AM CDT [facility] HDL Cholesterol 53 >40 mg/dL 9 7:08 AM CDT [facility] LDL Calculated 127 <130 mg/dL 04/10/2019 7:08 AM CDT [facility] VLDL Calculated 15(L) >=30 mg/dL 9 7:08 AM CDT [facility] Chol HDL Ratio 3.7 <4.5 04/10/2019 7:08 AM CDT [facility] LDL/HDL Ratio 2.4 <5.0 04/10/2019 7:08 AM CDT [facility] Blood BLOOD SPECIMEN / Unknown Venipuncture / Unknown 04/10/2019 6:23 AM CDT 04/10/2019 6:34 AM CDT Frieda Morris APRN-CUSHION BUILDER LAB - CHEMISTRY O RDERABLES [facility] [address] [place] [address] * HCG URINE QUALITATIVE - POCT (IP) INTERFACED (04/09/2019 3:02 PM CDT) HCG Qual Urine Negative Negative 04/09/2019 2:54 PM CDT [facility] Urine URINE / Unknown 04/09/2019 3 :02 PM CDT 04/09/2019 2:54 PM CDT Kumar Marcano MD LAB - POINT OF CARE ORDERABLES Performing Organization Address City/[facility]/ZIP Co de Phone Number [facility] [place] [address] * (ABNORMAL) URINALYSIS W/MICROSCOPIC NO CULTURE (04/09/2019 2:47 PM CDT) Color UA Citlali(A) Straw, Yellow 04/09/2019 3:05 PM T [facility] Clarity UA Clear Clear 04/09/2019 3:05 PM T [facility] Glucose UA Negative Negative 04/09/2019 3:05 PM T [facility] Bilirubin UA Negative Negative 04/09/2019 3:05 PM T [facility] Ketone UA Negative Negative 04/09/2019 3:05 PM T [facility] Specific Sterling UA 1.025 1.005 - 1.030 04/09/2019 3:05 PM T [facility] Blood UA 1+(A) Negative 04/09/2019 3:05 PM T [facility] pH UA 6.0 5.0 - 8.0 pH 04/09/2019 3:05 PM T [facility] Protein UA 1+(A) Negative 04/09/2019 3:05 PM T [facility] Urobilinogen UA 2.0(A) Negative mg/dL 04/09/2019 3:05 PM CDT [facility] Nitrite UA Positive(A) Negative 04/09/2019 3:05 PM CDT [facility] Leukocyte UA Negative Negative 04/09/2019 3:05 PM CDT [facility] RBC UA 11-20(A) None Seen, 0-2, 3-5 # /hpf 04/09/2019 3:05 PM CDT [facility] WBC UA 21-50(A) None Seen, 0-5 # /hpf 04/09/2019 3:05 PM CDT [facility] Bacteria UA Trace(A) None Seen 04/09/2019 3:05 PM CDT [facility] Squamous Epithelial Cells 0-2 None Seen, 0-2, 3-5 /hpf 04/09/2019 3:05 PM CDT [facility] Mucus UA 3+ /LPF 04/09/2019 3:05 PM CDT [facility] Urine URINE SPECIMEN OBTAINED BY CLEAN CATCH PROCEDURE / Unknown Collection / Unknown 04/09/2019 2:47 PM CDT 04/09/2019 2:59 PM CDT Narrative [facility] - 04/09/2019 3:05 PM CDT Homer Mackenzie MD LAB - URINALY SIS ORDERABLES Performing Organization Address City/[facility]/ZIP Co de Phone Number [facility] [place] [address] * CULTURE URINE (04/09/2019 2:47 PM CDT) Culture Urine 10,000-50,000 CFU/mL urogenital hansa DYLAN 04/11/2019 10:23 AM CDT [facility] Urine URINE SPECIMEN OBTAINED BY CLEAN CATCH PROCEDURE / Unknown Collection / Unknown 04/09/2019 2:47 PM CDT 04/09/2019 3:30 PM CDT Homer Mackenzie MD LAB - MICROBI OLOGY ORDERABLES [facility] [address] [place] [address] [phone] * (ABNORMAL) DRUG SCREEN TOX URINE PANEL (04/09/2019 2:47 PM CDT) Pathologist [facility] Amphetamines Screen Urine Not Detected Not Detected 04/09/2019 5:46 PM CDT [facility] Barbiturates Screen Urine Not Detected Not Detected 04/09/2019 5:46 PM CDT [facility] Benzodiazepines Screen Urine Not Detected Not Detected 04/09/2019 5:46 PM CDT [facility] Cannabinoids Screen Urine Detected(AA ) Not Detected 04/09/2019 5:46 PM CDT [facility] Cocaine Screen Urine Not Detected Not Detected 04/09/2019 5:46 PM CDT [facility] Methadone Screen Urine Not Detected Not Detected 04/09/2019 5:46 PM CDT [facility] Opiate Screen Urine Not Detected Not Detected 04/09/2019 5:46 PM CDT [facility] Phencyclidine Screen Urine Not Detected Not Detected 04/09/2019 5:46 PM CDT [facility] Urine URINE / Unknown 04/09/2019 2 :47 PM CDT 04/09/2019 5:24 PM CDT Narrative [facility] - 04/09/2019 5:46 PM CDT [...] MD LAB - URINE CHEMISTR Y ORDERABLES [facility] [address] [place] [address] * HCG URINE QUAL POCT NOTIFICATION (04/09/2019 2:27 PM CDT) Pathologist [facility] Comment Notification Label Only - See Separate Report 04/09/2019 3:30 PM CDT [facility] Urine URINE / Unknown 04/09/2019 2 :27 PM CDT 04/09/2019 2:27 PM CDT Homer Mackenzie MD LAB - URINALY SIS ORDERABLES [facility] [place] [address] Care Teams Editor Farm Journal Relationship Specialty Start Date End Date Yumiko Jones MD [address] [place] [address] PCP - General Pediatrics 04/09/19
--- OUTSIDE RECORDS SUMMARY | 2024-12-02 23:08 | XMS_ITS | Encounter Summary ---
Author Organization [facility] Address [address] [place] [address] Care Team Providers Care Living Skills Advisor Name Role Phone Gadiel Gustafson MD Primary Care Provider [phone] Encounter Details Date Type Department Care Team (Late st Contact Info) Description 07/19/2024 External Device Data STL ABSTRACTION Provider, Abstract [...] st Contact Info) Description 12/04/2024 10:45 AM PRECISION MILLWRIGHT Office Visit [facility] [address] [address] [place] [address] [place] [address] [place] [address] 01/31/2025 2:30 PM PRECISION MILLWRIGHT Office Visit [facility] [address] [address] [place] [address] [place] [address] [place] [address] documented as of this encounter Visit Diagnoses Not on filedocumented in this encounter Additional Health Concerns Assessment Noted Time PHQ-9 Depression Total Score: 3 01/10/20 24 2:22 PM PRECISION MILLWRIGHT documented as of this encounter Care Teams Living Skills Advisor Relationship Specialty Start Date End Date Gadiel Gustafson MD [address] [place] [address] PCP - General Internal Medicine 09/29/23 documented as of this encounter
--- OUTSIDE RECORDS SUMMARY | 2024-12-02 23:08 | XMS_ITS | Encounter Summary ---
Author Organization [facility] Address [address] [place] [address] Care Team Providers Care Traffic Operator Name Role Phone Gadiel Gustafson MD Primary Care Provider [phone] Reason for Visit * MRI (Routine) - Closed Specialty Diagnoses / Procedures Referred By Ami irene Referred To Contact Diagnoses Lumbar radiculopathy Procedures MRI LUMBAR WO CONTRAST Any Mcbride DO [address] [address] Referral ID Status Reason Start Date Expiration Date Visits Re quested Visits Authorized [id number] Closed 09/07/2024 10/08/2025 1 1 Encounter Details Date Type Department Care Team (Latest Contact Info) Description 09/19/2024 6:00 PM CDT Ancillary Procedure [facility] [place] [id number] [place] [address] Any Mcbride DO [address] [place] [address] Lumbar radiculopathy Social History Tobacco Use Types Packs/Day Years [...] st Contact Info) Description 12/04/2024 10:45 AM FREELANCE DISPLAYER Office Visit [facility] [address] [place] [address] [place] [address] [place] [address] 01/31/2025 2:30 PM FREELANCE DISPLAYER Office Visit [facility] [address] [address] [address] [place] [address] [place] [address] [address] [place] [address] documented as of this encounter Procedures Procedure Name Priority Date/Time Associated Diagnosis Comments MRI LUMBAR WO CONTRAST Routine 09/19/2024 6:34 PM CDT Lumbar radiculopathy documented in this encounter Results * MRI LUMBAR WO CONTRAST (09/19/2024 6:34 PM CDT) Anatomical Region Laterality Modality Spine Magnetic Resonan ce 09/19/2024 6:34 PM CDT Impressions 09/20/2024 7:36 AM CDT IMPRESSION: Central posterior disc herniation at L5-S1 causing mild spinal canal narrowing. Narrative 09/20/2024 7:36 AM CDT EXAM: MRI LUMBAR WO CONTRAST STUDY DATE: 09/19/2024 6:34 PM CLINICAL INDICATION: Lumbar radiculopathy COMPARISON: None CONTRAST: ?? PROCEDURE: Axial and sagittal MR images of the lumbar spine are obtained without intravenous contrast. FINDINGS: The lumbar vertebral bodies demonstrate satisfactory height. There is 3 mm retrolisthesis of L5 on S1. No acute fracture. There is no abnormal signal in the bone marrow. There are degenerative changes of the lumbar spine with disc desiccation at L5-S1. At T12-L1, there is no focal disc herniation, spinal canal stenosis or neuroforaminal narrowing. At L1-L2, there is no focal disc herniation, spinal canal stenosis or neuroforaminal narrowing. At L2-L3, there is no focal disc herniation, spinal canal stenosis or neuroforaminal narrowing. At L3-L4, there is no focal disc herniation, spinal canal stenosis or neuroforaminal narrowing. At L4-L5, there is no focal disc herniation, spinal canal stenosis or neuroforaminal narrowing. At L5-S1, there is a central posterior disc herniation/protrusion indenting the ventral aspect of the thecal sac and causing mild spinal canal narrowing. There is no significant neuroforaminal narrowing. The conus medullaris terminates at L1. ?? Procedure Note Maria Guadalupe Cheung MD - 09/20/2024 EXAM: MRI LUMBAR WO CONTRAST STUDY DATE: 09/19/2024 6:34 PM CLINICAL INDICATION: Lumbar radiculopathy COMPARISON: None CONTRAST: PROCEDURE: Axial and sagittal MR images of the lumbar spine are obtained without intravenous contrast. FINDINGS: The lumbar vertebral bodies demonstrate satisfactory height. There is 3 mm retrolisthesis of L5 on S1. No acute fracture. There is no abnormal signal in the bone marrow. There are degenerative changes of the lumbar spine with disc desiccation at L5-S1. At T12-L1, there is no focal disc herniation, spinal canal stenosis or neuroforaminal narrowing. At L1-L2, there is no focal disc herniation, spinal canal stenosis or neuroforaminal narrowing. At L2-L3, there is no focal disc herniation, spinal canal stenosis or neuroforaminal narrowing. At L3-L4, there is no focal disc herniation, spinal canal stenosis or neuroforaminal narrowing. At L4-L5, there is no focal disc herniation, spinal canal stenosis or neuroforaminal narrowing. At L5-S1, there is a central posterior disc herniation/protrusion indenting the ventral aspect of the thecal sac and causing mild spinal canal narrowing. There is no significant neuroforaminal narrowing. The conus medullaris terminates at L1. IMPRESSION: Central posterior disc herniation at L5-S1 causing mild spinal canal narrowing. Any Mcbride DO MR ORDERABLES documented in this encounter Visit Diagnoses Diagnosis Lumbar radiculopathy Thoracic or lumbosacral neuritis or radiculitis, unspecified documented in this encounter Additional Health Concerns Assessment Noted Time PHQ-9 Depression Total Score: 3 01/10/20 24 2:22 PM FREELANCE DISPLAYER documented as of this encounter Care Teams Traffic Operator Relationship Specialty Start Date End Date Gadiel Gustafson MD [address] [facility] [place] [address] PCP - General Internal Medicine 09/29/23 documented as of this encounter
--- OUTSIDE RECORDS SUMMARY | 2024-12-02 23:08 | XMS_ITS | Encounter Summary ---
Author Organization [facility] Address [address] [place] [address] Care Team Providers Care Shell Press Operator Name Role Phone Gadiel Gustafson MD Primary Care Provider Reason for Visit * Reason Comments [facility] Encounter Details Date Type Department Care Team (Late st Contact Info) Description 04/21/2024 Patient Outreach [facility] [address] [place] [address] [facility] Social History Tobacco Use Types Packs/Day Years Used Date Smoking Tobacco: Never Smokeless Tobacco: Never Alcohol Use Standard Drinks/Week Comments Yes 0 (1 standard drink = 0.6 oz pur e alcohol) Sex and Gender Information Value Date Recorded Sex Assigned at Not on file Gender Identity Not on file Sexual Orientation Not on file documented as of this encounter Progress Notes * [facility] - 04/21/2024 2:23 PM CDT January 10, 2024 01/10/2024 9.92 Minutes -- Patient Contact 01/10/2024 2.00 Minutes -- Registry Management Primary Diagnosis: F41.8 - Other specified anxiety disorders Date: 01/10/2024 Referring [facility] Provider: Mell Strong Referral comments from provider, if any: Depression with anxiety Patient comments, if any: Difficulty sleeping. PCP started a medication at the appointment today [facility] [place] successfully connected with patient, introduced role and explained the services offered by the care team. Patient was engaged with open ended questions, active listening, and motivational interviewing to gather pertinent information related to presenting symptoms. Spiritual Screenin. Recently have things negatively changed in your life as it relates to loss in meaning, purpose, and marybeth? Yes 2. Are you struggling to find meaningful connections with others or God? No 3. Are you currently grieving a recent loss/? No 4. Do you feel the need for additional support AND open to having a [facility] Spiritual Care Provider reaching out to you? No Patient Connection steam tender provided the patient with an overview of the collaborative care program, established treatment expectations and answered questions related to enrollment. Insurance: Patient Connection unable to verify through EMR if patient is [facility] as of January 10, 2024. Patient has new insurance ([employer]) and will call [facility] to update with them. Patient did want CPT Billing Codes. Patient Agreed to continue with service. Patient gave verbal consent for services and was in agreement to be scheduled with a Collaborative Sludge Control Attendant (CCC) for continued engagement and skill development to decrease presenting symptoms.Patient was in agreement to be scheduled with a Collaborative Sludge Control Attendant (CCC). Patient is scheduled withKathrin on Jan 24, 2024 at 2:00 PM. Patient was able to enroll in video appointments. Patient was willing to schedule follow up appointments. Their follow up appointment is scheduled forM2023 at 2:00 PM. Patient's preferred appointment times have been added to Engagement Center.Patient preferred language is Thai. Patient Has Opted in for SMS reminders. Patient Contact: 9.55 minutes Registry Management: 2.00 minutes Graciela Dempsey Patient Connection Specialist Graciela Dempsey Patient Connection Specialist January 24, 2024 Assessment(s) FERNANDEZ-7: 9 C-SSRS Screener Recent: Low 01/24/2024 39.88 Minutes -- Patient Contact 01/24/2024 5.00 Minutes -- Clinical Case Preparation 01/24/2024 8.00 Minutes -- Registry Management Primary Diagnosis: F41.8 - Other specified anxiety disorders [facility] Collaborative Care ? Initial Consultation Patient Name: Daiana Spencer Date: 01/24/2024. Referring Collaborative Care Provider: Mell Strong Patient location at time of contact: OTHER - [facility] Patient's identity confirmed yes This encounter was completed via two-way synchronous: audio only communication. Clinician disclosed to patient that they are a Master's Level Clinician currently receiving supervision. Daiana Spencer is a 23 y.o. female who presents for evaluation and treatment for symptoms of F41.8 - Other specified anxiety disorders Patient reports mild depression symptoms Anxiety Score: 9 (01/24/2024 2:06 PM) Snyder-Suicide Severity Rating Scale (Past Month) 1. Have you wished you were or wished you could go to sleep and not wake up?: No (01/24/2024 2:08 PM) 2. Have you actually had any thoughts of killing yourself?: No (01/24/2024 2:08 PM) 6. Have you ever done anything, started to do anything, or prepared to do anything to end your life?: No (01/24/2024 2:08 PM) Patient does not report suicidal ideation or self harm. Patient reports the following: Anxiety Symptoms: Feeling nervous or on edge, Worrying about many different things, Difficulty relaxing, Feeling restless or agitated, and Irritability Depressive Symptoms: Feelings of sadness, Crying spells, Sleeping too much, Feeling tired or low engery, Low appetite, and Irritability Manic Symptoms: None reported Psychotic Symptoms: None reported Symptoms of Trauma: None reported Eating Patterns: None reported Sleeping Patterns: Increased sleep Patient reports that these symptoms began: Began around 15. My two sisters left me, my dad left me, boyfriend left me, and my mom was struggling with abusing xanax . Patient reports that symptoms have been best or most manageable: when I go on vacation, things arebetter . Current stressors: Patient states, I just got out of a break up . Patient named feeling lonely in the relationship so she ended it. Patient is struggling with the aftermath of her relationship. Struggling with depression and anxiety. Struggling with abandonment wounds. Just moved back in with mom and is struggling with memories from the past. MEDICATIONS: Current Psychiatric Medications: Wellbutrin XL 150 Past Psychiatric Medication trials and response: Lexapro, patient states she does not remember any side effects. Is patient interested in medication change or start? No BEHAVIORAL HEALTH TREATMENT HISTORY: Currently in treatment with a therapist Sees therapist weekly. Missed the last few weeks. FAMILY HISTORY: Family history significant for substance abuse Patient states mom use to abuse xanax but does not anymore. SUBSTANCE USE: Patient states she drinks once every two weeks. Probably 4 shots PLAN/INTERVENTIONS Today's SMART Goal: Patient will work on sleep routine and waking routine to decrease sleep hours from 16 to 8-10 By the next contact Clinician utilized DBT Skills, Motivational Interviewing, and Problem Solving Treatment of Open ended questions, Positive affirmations, and Reflective listening to aid patient in decreasing symptoms of anxiety and depression. Patient Contact: 39.53 minutes Registry Management: 8 minutes Registry Management Activities: completed time keeping, added/updated goals, entered GAD7 score, and entered CSSRS responses Case Preparation: 5 minutes Follow up plan: Follow up 01/30 @ 2pm Kathrin Costello [facility] Collaborative Sludge Control Attendant [facility] Care [phone] [facility] Sludge Control Attendant I documented in this encounter Plan of Treatment Upcoming Encounters Date Type Department Care Team (Late st Contact Info) Description 12/04/2024 10:45 AM ROLFER Office Visit [facility]YN [address] [address] [facility] [address] [address] [address] [facility] [address] [address] [place] [address] [address] [place] [address] 01/31/2025 2:30 PM ROLFER Office Visit [facility] OBGYN [address] [address] [place] [address] [place] [address] [facility] [address] [place] [address] documented as of this encounter Visit Diagnoses Not on filedocumented in this encounter Additional Health Concerns Assessment Noted Time PHQ-9 Depression Total Score: 3 01/10/20 24 2:22 PM ROLFER documented as of this encounter Care Teams Shell Press Operator Relationship Specialty Start Date End Date Gadiel Gustafson MD [address] [place] [address] PCP - General Internal Medicine 09/29/23 documented as of this encounter
--- OUTSIDE RECORDS SUMMARY | 2024-12-02 23:08 | XMS_ITS | Encounter Summary ---
Author Organization [facility] Address [address] [place] [address] Care Team Providers Care Industrial Gas Servicer Name Role Phone Yumiko Jones MD Primary Care Provider Reason for Visit * Reason Comments Depression Patient reports darrin alonzo upset this morning because she was getting ready for work and couldn't find her belt. Patient started crying and couldn't stop. Patient has thoughts to hurt herself by cutting herself with her wrists. Patient also having depression due to boyfriend moving to [place], sister moving to college, and other sister moved in with her mom. Patient denies wanting to kill herself but does think about it. Plan for suicide would be OD on pills. * Auth/Cert Specialty Diagnoses / Procedures Referred By Contac t Referred To Contact Referral ID Status Reason Start Date Expiration Date Visits Re quested Visits Authorized [id number] 1 1 Encounter Details Date Type Department Care Team (Late st Contact Info) Description 04/09/2019 1:23 PM CDT - 04/09/2019 6:22 PM CDT Emergency ER at [address] [address] Kumar Marcano MD [address] [place] [id number] Depressed mood; Suicidal ideations; Urinary tract infection [...] 04/09/2019 1:5 1 PM CDT Growth Chart: [facility] (Girls, 2- 20 Years) documented in this [...] [birth year]) Daiana Spencer 18 year old 04/09/2019 [facility] EMERGENCY DEPARTMENT Place service provided to Patient : CG ED Case discussed with central radiology receptionist Estela and chart reviewed. Who brought the [...] having depression due to boyfriend moving to [place], sister moving to college, and other sister [...] Physician: OPAL Green Discussed case with: [facility] Room:[facility] Phone number for Unit: [phone] Patient's current location: [facility] Report information for Behavioral Health Unit: Nurse Name: Norma Nurse contact number: [phone] Guardian and Consents: Current Residence of Patient Private Guardian name/relationship, if applicable (Parent /DFS/DJO/Foster):Mother: Jody sEcoto Guardian contact #: [phone] Was guardianship verified Yes If so how? [...] will use the metal piece of a revenue field agent to scratch herself on her forearm and last cut two weeks ago. The patientdenies HI and Hallucinations. The patient has had a few stressors over the past 2 years. The patient's boyfriend who was also herboyfriend moved to [place] two years ago and today decided that [...] cutting with fingernails or metal piece of revenue field agent. ?? Ask questions that are in bold [...] cutting with fingernails or metal piece of revenue field agent. Past Month: Yes 2) Suicidal Thoughts: General [...] cutting with fingernails or metal piece of revenue field agent. Past Month: Yes If YES to 2, [...] orcutting with fingernails or metal piece of revenue field agent. hinking about how you might do this? [...] cutting with fingernails or metal piece of revenue field agent. Past Month: No 5) Suicide Intent with [...] cutting with fingernails or metal piece of revenue field agent. Past Month: No 6) Suicide Behavior Question [...] cutting with fingernails or metal piece of revenue field agent. Lifetime: No Past 3 Months: No Response [...] lives with mother, father, brother Work/education:11 th [employer] Assets/supports: mother ?? Legal Issues: Legal [...] admission information). All verbalized understanding. ?? The Merrick Scale, shows that based on patient's presentation they currently warrant a medium riskof self harm, this has been provided to OPAL Green (Psychiatric Provider) and ED Physician along with LOI Green ED Registered Nurse. Additional Information if disposition is for admission: Patient will be admitted under the care of Dr. Cobian (Psychiatric Provider). Central Transportation Supervisor Estela called and discussed the case with Stefani Behavioral Health Manager [facility] for appropriate bed placement. Provisional Diagnosis: ?? Major Depressive disorder, singe episode, severe F32.2 ?? Assessment Times: [id number] Notes: Initial contact with On-Call for Psychiatry at 1550 (Time) On-Call for Psychiatry provided disposition at 1553 (Time) Initial contact with Manager Spa at 1523 (Time) Manager [facility] disposition at 1526 (Time) documented in this encounter ED Notes * Cady Cadet RN - 04/09/2019 5:38 PM CDT Called Reginald PARKINSON [phone]. * Norma Anthony RN - 04/09/2019 5:18 PM CDT Lab called to add UDS to UA. * Norma Anthony RN - 04/09/2019 3:06 PM CDT Patient on Skype with Central Chef De Cuisine, Estela. * Norma Anthony RN - 04/09/2019 [...] contact with the patient: 04/09/2019 1:47 PM [facility] EMERGENCY DEPARTMENT Daiana Spencer [id number] History Chief Complaint Patient presents with ??? Depression Patient reports becoming upset this morning because she was getting ready for work and couldn't find her belt. Patient started crying and couldn't stop. Patient has thoughts to hurt herself by cutting herself with her wrists. Patient also having depression due to boyfriend moving to [place], sister moving to college, and other sister moved in with her mom. Patient denies wanting to kill herself but does think about it. Plan for suicide would be OD on pills. Chief complaint narrative was entered by triage nurse, not by physician. I have read the resident/medical student/LAMP STACK DEVELOPER history. Unless appended by me below, I [...] and crying more. Recently her boyfriend movedto [place] and she has not been taking it well per Step-Mom. This morning she tried to find [place] for work and had a meltdown. Step-Mom [...] all negative except as noted in resident/medical student/LAMP STACK DEVELOPER and attending HPI/ROS. Constitutional: No appetite change or fever +increased sleeping HENT: No congestion or rhinorrhea Respiratory: No cough or wheezing Cardiovascular: Negative GI: No abdominal pain, diarrhea, nausea or vomiting : No decreased urine output +frequency, +dysuria MS: Negative Neuro: +depression, +SI Skin: No rash or wounds All other systems negative except as noted above. Physical Exam I have reviewed the resident/medical student/LAMP STACK DEVELOPER physical exam. Unless appended by me below, [...] Negative Negative Ketone UA Negative Negative Specific Pinson UA 1.025 1.005 - 1.030 Blood UA [...] 5:10 PM: A bed is available at [facility] under Dr. Cobian. Will check a UDS per their request and arrange transfer via ALS. 5:11 PM I have made arrangements to transfer the patient to [facility] under Dr. Cobian's care. Informed consent for [...] without hematuria, site unspecified Disposition: Transfer to [facility] 04/09/2019 5:11 PM Scribe Attestation By signing [...] hours a day, from any computer, through [employer], the online version of our electronic medical record. If you would like to use this service, please call Roopa Reese, Connectivity Coordinator, at . We appreciate the opportunity to care for your patients. If you would like additional information, please call the emergency department directly at . Sincerely, Homer Mackenzie MD Division of Emergency Medicine [facility], [place] [facility] [place] DESIGNATED EMERGENCY DEPARTMENT Provider contact with the patient: 04/09/2019 13:44 Daiana Spencer [id number] [facility] EMERGENCY DEPARTMENT History Chief Complaint Patient presents with ??? Depression Patient reports becoming upset this morning because she was getting ready for work and couldn't find her belt. Patient started crying and couldn't stop. Patient has thoughts to hurt herself by cutting herself with her wrists. Patient also having depression due to boyfriend moving to [place], sister moving to college, and other sister [...] Urine Negative Negative 04/09/2019 2:54 PM CDT [facility] Urine URINE / Unknown 04/09/2019 3 :02 PM CDT 04/09/2019 2:54 PM CDT Kumar Marcano MD LAB - POINT OF CARE ORDERABLES [facility] [place] [address] * (ABNORMAL) DRUG SCREEN TOX URINE PANEL (04/09/2019 2:47 PM CDT) [facility] Amphetamines Screen Urine Not Detected Not Detected 04/09/2019 5:46 PM CDT [facility] Barbiturates Screen Urine Not Detected Not Detected 04/09/2019 5:46 PM CDT [facility] Benzodiazepines Screen Urine Not Detected Not Detected 04/09/2019 5:46 PM CDT [facility] Cannabinoids Screen Urine Detected(AA ) Not Detected 04/09/2019 5:46 PM CDT [facility] Cocaine Screen Urine Not Detected Not Detected 04/09/2019 5:46 PM CDT [facility] Methadone Screen Urine Not Detected Not Detected 04/09/2019 5:46 PM CDT [facility] Opiate Screen Urine Not Detected Not Detected 04/09/2019 5:46 PM CDT [facility] Phencyclidine Screen Urine Not Detected Not Detected 04/09/2019 5:46 PM CDT [facility] Urine URINE / Unknown 04/09/2019 2 :47 PM CDT 04/09/2019 5:24 PM CDT Narrative [facility] - 04/09/2019 5:46 PM CDT [...] MD LAB - URINE CHEMISTR Y ORDERABLES [facility] [address] [facility] [place] [address] * CULTURE URINE (04/09/2019 2:47 PM CDT) [facility] Culture Urine 10,000-50,000 CFU/mL urogenital hansa DYLAN 04/11/2019 10:23 AM CDT [facility] Urine URINE SPECIMEN OBTAINED BY CLEAN CATCH PROCEDURE / Unknown Collection / Unknown 04/09/2019 2:47 PM CDT 04/09/2019 3:30 PM CDT Homer Mackenzie MD LAB - MICROBI OLOGY ORDERABLES [facility] [address] [place] [address], [facility] [phone] * (ABNORMAL) URINALYSIS W/MICROSCOPIC NO CULTURE (04/09/2019 2:47 PM CDT) Color UA Citlali(A) Straw, Yellow 04/09/2019 3:05 PM [facility] Clarity UA Clear Clear 04/09/2019 3:05 PM [facility] Glucose UA Negative Negative 04/09/2019 3:05 PM [facility] Bilirubin UA Negative Negative 04/09/2019 3:05 PM [facility] Ketone UA Negative Negative 04/09/2019 3:05 PM [facility] Specific Pinson UA 1.025 1.005 - 1.030 04/09/2019 3:05 PM [facility] Blood UA 1+(A) Negative 04/09/2019 3:05 PM [facility] pH UA 6.0 5.0 - 8.0 pH 04/09/2019 3:05 PM [facility] Protein UA 1+(A) Negative 04/09/2019 3:05 PM [facility] Urobilinogen UA 2.0(A) Negative mg/dL 04/09/2019 3:05 PM [facility] Nitrite UA Positive(A) Negative 04/09/2019 3:05 PM [facility] Leukocyte UA Negative Negative 04/09/2019 3:05 PM [facility] RBC UA 11-20(A) None Seen, 0-2, 3-5 # /hpf 04/09/2019 3:05 PM [facility] WBC UA 21-50(A) None Seen, 0-5 # /hpf 04/09/2019 3:05 PM [facility] Bacteria UA Trace(A) None Seen 04/09/2019 3:05 PM CDT [facility] Squamous Epithelial Cells 0-2 None Seen, 0-2, 3-5 /hpf 04/09/2019 3:05 PM CDT [facility] Mucus UA 3+ /LPF 04/09/2019 3:05 PM CDT [facility] Urine URINE SPECIMEN OBTAINED BY CLEAN CATCH PROCEDURE / Unknown Collection / Unknown 04/09/2019 2:47 PM CDT 04/09/2019 2:59 PM CDT Narrative [facility] - 04/09/2019 3:05 PM CDT Homer Mackenzie MD LAB - URINALY SIS ORDERABLES Performing Organization Address City/[facility]/ZIP Co de Phone Number [facility] [address] [place] [address] * HCG URINE QUAL POCT NOTIFICATION (04/09/2019 2:27 PM CDT) Comment Notification Label Only - See Separate Report 04/09/2019 3:30 PM CDT [facility] Urine URINE / Unknown 04/09/2019 2 :27 PM CDT 04/09/2019 2:27 PM CDT Homer Mackenzie MD LAB - URINALY SIS ORDERABLES Performing Organization Address [facility] de Phone Number [facility] [address] [place] [address] documented in this encounter Visit Diagnoses Diagnosis [...] RN) documented in this encounter Care Teams Industrial Gas Servicer Relationship Specialty Start Date End Date Yumiko Jones MD [address] [place] [address] PCP - General Pediatrics 04/09/19 documented as of this encounter
--- OUTSIDE RECORDS SUMMARY | 2024-12-02 23:08 | XMS_ITS | Clinical Summary ---
Author Organization [facility] Festu s Address [address] [place] [address] Care Team Providers Care Sewing Machine Bobbin Winder Name Role Phone Gadiel Gustafson MD Primary Care Provider [phone] Allergies No known active allergies Medications Medication Sig Dispensed Refills Start Date End Date Status meloxicam (MOBIC) 7.5 mg tablet Take 7.5 mg by mouth daily. Once a month Active Cyclobenzaprine 7.5 mg Tablet Take 7.5 mg by mouth daily. Active clindamycin phosphate (CLEOCIN T) 1 % Gel Apply to affected area 2 times daily. 30 Gram 3 09/29/2023 Active buPROPion HCL (WELLBUTRIN XL) 150 mg Extended Release 24 hour tablet Take 1 Tablet (150 mg) by mouth daily in the morning. 90 Tablet 06/12/2024 Active Additional Information Patient not taking.Reported on 07/26/2024 Active Problems Problem Noted Date Diagnosed Date Depression with anxiety 11/24/2023 Overview (02/29/2024): - Current medications include: Wellbutrin, has tried Lexapro and trazodone (slept too much) - Mood: not good - Insomnia?: yes, trouble falling asleep, but then sleeps 12-16 hours and has difficulty waking up - Decreased energy?: yes - Chantelle symptoms (e.g. periods of increased energy, risky behavior, and other symptoms typical of chantelle): yes - Severe/risky symptoms including suicidal ideation/homicidal ideation/hallucinations/delusions?: no - Concurrent anxiety?: yes - Panic attacks: not lately - Stressors: sleep issues, life changes, relationship ended, moved in with mom - Previous hospitalization: yes - Psychiatry: no - Counselor: yes, currently Assessment & Plan (01/10/2024 3:11 PM CARE TECHNICIAN): The patient's psychiatric symptoms, at this time, are not under control. Will change medications per orders. The patient denies suicidal plans. The patient understands the possibility that antidepressants can sometimes bring on suicidal thinking, especially in young adults, and wishes to proceed. The patient will report any change in suicidal thinking to us immediately or go to ER. The patient is asked to follow up with us if mood does not improve. Assessment & Plan (11/24/2023 11:36 AM CARE TECHNICIAN): The patient is doing well. Continue medications per AVS. The patient was asked to report any symptoms of depression. Asked to report any problems with sleep / interest / guilt / energy / concentration / appetite / psychomotor retardation / or suicidal thoughts. Acne 09/29/2023 Overview (09/29/2023): - Recent outbreaks?: yes - Location: cheeks, around lips - Current medications include: clindamycin gel 1% - Dermatology?: has seen in the past Assessment & Plan (09/29/2023 4:13 PM CDT): At this time the patient's acne appears stable. Continue current treatment. The patient will report new flares or new symptoms from medications. Routine blood work for oral medications if indicated, see orders. Chronic bilateral low back pain with left-sided sciatica 09/29/2023 Overview (07/26/2024): - Location: low back - Duration: 4 [...] physical therapy - Sees neurosurgeon Dr. Mcbride Assessment & Plan (07/26/2024 3:24 PM CDT): The patient's pain is not controlled. Previous imaging reviewed (if available). Medication changes per orders. Exercise encouraged. If no improvement with conservative measures, will refer for additional imaging and / or physical therapy. If this fails, refer to spinal surgeon or pain management for evaluation. Assessment & Plan (09/29/2023 4:13 PM CDT): The patient's pain is not controlled. Previous imaging reviewed (if available). Medication changes per orders. Exercise encouraged. If no improvement with conservative measures, will refer for additional imaging and / or physical therapy. If this fails, refer to spinal surgeon or pain management for evaluation. Encounters Date Type Department Care Team Description 09/19/2024 6:00 PM CDT Ancillary Procedure [facility] [address] [address] Any Mcbride DO Lumbar radiculopathy from Last 3 Months Immunizations Name Administration Dates Next Due (RECOMBIVAX HB/ENGERIX-B)(0- 19 YRS) HEPATITIS B VACCINE 5 MCG/0.5 ML OR 10 MCG/0.5 ML PED OR ADOL 3 DOSE (PF), IM 02/04/2021 INFLUENZA VACCINE QUADRIVALENT 6 MOS UP PF IM ,09/30/2020 Family History Medical History Relation Name Comments Healthy Brother Healthy Father Healthy Mother Ovarian Cancer Mother had a full hy sterectomy Healthy Sister Breast Cancer Neg Hx Colon Cancer Neg Hx Uterine Cancer Neg Hx Relation Name Status Comments Brother Alive Father Alive Mother Alive Sister Alive Social History Tobacco Use Types Packs/Day Years Used Date Smoking Tobacco: Never Smokeless Tobacco: Never Tobacco Cessation:Counseling Given: Not Answered Alcohol Use Standard Drinks/Week Comments Yes 0 [...] 07/26/2024 1:53 PM CD T Respiratory Rate 18 10/01/2022 12:09 PM CDT Oxygen Saturation 98% 07/26/2024 1:53 PM CDT Inhaled Oxygen Concentration - - Weight 50.6 kg (111 lb 8 oz) 07/26/2024 1:53 PM CDT Height 160 cm (5' 3 ) 07/26/2024 1:53 PM CDT Body Mass Index 19.75 07/26/2024 1:53 PM CDT Plan of Treatment Upcoming Encounters Date Type Department Care Team (Late st Contact Info) Description 12/04/2024 10:45 AM CARE TECHNICIAN Office Visit [facility] OBGYN [address] [place] [address] [place] [address] [place] [address] 01/31/2025 2:30 PM CARE TECHNICIAN Office Visit [facility]YN [address] [place] [address] [place] [address] [place] [address] Health Maintenance Due Date Last Done Comments HPV VACCINES (1 - 3-dose series) 2017 HEPATITIS B VACCINES (2 of 3 - 3-dose series) 03/04/2021 02/04/2021 DTAP/TDAP/TD VACCINES (1 - Tdap) 2021 INFLUENZA VACCINE (#1) 2024 , 09/30/2020 COVID-19 Vaccine (2 - 2023-2 5 season) 2024 01/26/2022 Preventative Visit- Commercial 11/29/2024 01/26/2024, 09/29/2023 CHLAMYDIA SCREENING (ANNUAL) 11-24 YEARS 05/10/2025 05/10/2024 CERVICAL CANCER SCREENING 01/26/2027 01/26/2024 PNEUMOCOCCAL VACCINE 0-64 YEARS Aged Out No longer eligible b ased on patient's age to complete this topic Procedures Procedure Name Priority Date/Time Associated Diagnosis Comments MRI LUMBAR WO CONTRAST Routine 09/19/2024 6:34 PM CDT Lumbar radiculopathy VAGINOSIS/VAGINITI S PANEL PLUS Routine 05/10/2024 11:02 AM CDT Vaginal odor Screen for STD (sexually transmitted disease) CERV/VAG CYTO AGE BASED SCREEN PAP W CT/NG, TRICH Routine 01/26/2024 3:11 PM CARE TECHNICIAN Cervical cancer screening Routine screening for STI (sexually transmitted infection) from Last 3 Months or Most Recently Relevant to Health Maintenance Results * MRI LUMBAR WO CONTRAST (09/19/2024 [...] canal narrowing. Any Mcbride DO MR ORDERABLES * (ABNORMAL) VAGINOSIS/VAGINITIS PANEL PLUS (05/10/2024 11:02 AM CDT) BACTERIAL VAGINOSIS POSITIVE(A) NEGATIVE [facility] ASHIA SPECIES NOT DETECTED NOT DETECTED [facility] ASHIA GLABRATA NOT DETECTED NOT DETECTED [facility] Comment: Ashia species C. albicans, C. tropicalis, C. parapsilosis, and/or C. dubliniensis can be detected, but not differentiated, in the Ashia spp. result. TRICHOMONAS VAGINALIS (TV), TMA NOT DETECTED NOT DETECTED [facility] C TRAC RNA NOT DETECTED NOT DETECTED [facility] N.GONORRHOEAE RNA, TMA NOT DETECTED NOT DETECTED [facility] Comment: For additional information, please refer to https://education.[employer]/faq/AWL077 (This link is being provided for information/ educational purposes only.) Test Performed at: [facility] [address] [place], [place] ??[phone] Angelia Da Silva MD Genital SPECIMEN FROM VAGINA / Unknown 05/10/2024 11:02 AM CDT 05/11/2024 2:54 AM CDT Kelsey Olivera MD MICROBIOLOGY - GENERAL ORDERABLES [facility] [phone] [address] [address] [place] [address] * CERV/VAG CYTO AGE BASED SCREEN PAP W CT/NG, TRICH (01/26/2024 3:11 PM CARE TECHNICIAN) COMMENT (PAP): [facility] Comment: This order for age-based cervical cancer and STI screening follows ACOG guidelines(PB 168, 140, FJA128). See individual assays for performing site location. CLINICAL INFORMATION [facility] Comment:None given LAST MENSTRUAL PERIOD [facility] Comment:12/24/2023 PREV PAP: [facility] Comment:NONE GIVEN PREV BX: [facility] Comment:NONE GIVEN SOURCE [facility] Comment:Endocervix ADEQUACY: [facility] Comment: Satisfactory for evaluation. Endocervical/transformation zone component present. PAP INTERP [facility] Comment: Cytology Results: Negative for intraepithelial lesion or malignancy. COMMENT (PAP TEST) [facility] Comment: This Pap test has been evaluated with computer assisted technology. TURN OUT: [facility] Comment: LMT, CT(ASCP) CT screening location: [place] [address] [place] [address] [address] [facility] Comment: EXPLANATORY NOTE: The Pap is a screening test for cervical cancer. It is not a diagnostic test and is subject to false negative and false positive results. It is most reliable when a satisfactory sample, regularly obtained, is submitted with relevant clinical findings and history, and when the Pap result is evaluated along with historic and current clinical information. C TRAC RNA NOT DETECTED NOT DETECTED [facility] N.GONORRHOEAE RNA, TMA NOT DETECTED NOT DETECTED [facility] COMMENT INFECTIOUS DISEASE [facility] Comment: The analytical performance characteristics of this assay, when used to test SurePath(TM) specimens have been determined by [facility]. The modifications have not been cleared or approved by the FDA. This assay has been validated pursuant to the CLIA regulations and is used for clinical purposes. For additional information, please refer to https://PlumWillow.[employer]/faq/LAE289 (This link is being provided for information/ educational purposes only.) TRICHOMONAS VAGINALIS,QUALITAT COLLIN,PAP VIAL NOT DETECTED NOT DETECTED [facility] Comment: The analytical performance characteristics of this assay have been determined by [facility]. The modifications have not been cleared or approved by the FDA. This assay has been validated pursuant to the CLIA regulations and is used for clinical purposes. For additional information, please refer to http://PlumWillow.[employer]/ faq/Trichomonastma (This link is being provided for information/ educational purposes only.) Test Performed at: [facility] [address] [place] ??[phone] Angelia SUNSHINE Genital SWAB OF ENDOCERVIX / Unknown 01/26/2024 3:11 PM CARE TECHNICIAN 01/27/2024 3:13 AM CARE TECHNICIAN Kelsey Olivera MD PATHOLOGY/DEXTER DRUMMOND ORDERABLES [facility] [phone] [facility] [employer] [address] [place] [address] from Last 3 Months or Most Recently Relevant to Health Maintenance Care Teams Sewing Machine Bobbin Winder Relationship Specialty Start Date End Date Gadiel Gustafson MD [address] [place] [address] PCP - General Internal Medicine 09/29/23
--- OUTSIDE RECORDS SUMMARY | 2024-12-02 23:08 | XMS_ITS | Encounter Summary ---
Author Organization [facility] Address [address] [place] [address] Care Team Providers Care Boilermaker Industrial Boilers Name Role Phone Gadiel Gustafson MD Primary Care Provider [phone] Encounter Details Date Type Department Care Team (Late st Contact Info) Description 07/18/2024 External Device Data STL ABSTRACTION Provider, Abstract [...] st Contact Info) Description 12/04/2024 10:45 AM DETHISTLER OPERATOR Office Visit [facility] OBGYN [address] [place] [address] [place] [address] [place] [address] 01/31/2025 2:30 PM DETHISTLER OPERATOR Office Visit [facility] OBGYN [address] [place] [address] [place] [address] [place] [address] documented as of this encounter Visit Diagnoses Not on filedocumented in this encounter Additional Health Concerns Assessment Noted Time PHQ-9 Depression Total Score: 3 01/10/20 24 2:22 PM DETHISTLER OPERATOR documented as of this encounter Care Teams Boilermaker Industrial Boilers Relationship Specialty Start Date End Date Gadiel Gustafson MD [address] [place] [address] PCP - General Internal Medicine 09/29/23 documented as of this encounter
--- OUTSIDE RECORDS SUMMARY | 2024-12-02 23:08 | XMS_ITS | Encounter Summary ---
Author Organization [facility] Address [facility] [facility] [place] [address] Care Team Providers Care Fashion Merchandiser Name Role Phone Yumiko Jones MD Primary Care Provider Reason for Visit * Reason Onset Date Comments Referral 10/30/2021 Encounter Details Date Type Department Care Team (Late st Contact Info) Description 10/30/2021 Telephone [facility] Medical [facility] - Rheumatology [address] [facility], [address] [place] [address] Yaritza Steven MD [facility] [place] [address] Referral Social History Tobacco Use [...] patient to contact the office to schedule VACUUM APPLICATOR OPERATOR appointment with Dr. Steven. Called referral x3 on both numbers listed in file. No further calls will be made but if patient contacts the office can be scheduled for the soonest VACUUM APPLICATOR OPERATOR appointment. STITCH FRONT EDGE TAPE SEWER * Telephone Encounter - Eugene Kaufman RN - 10/31/2021 10:35 AM CST Received a fax for the patient to be seen by Rheumatology. LMOR for patient to contact the office to schedule VACUUM APPLICATOR OPERATOR appointment with Dr. Steven. Called referral x2 STITCH FRONT EDGE TAPE SEWER * Telephone Encounter - Eugene Kaufman RN - 10/30/2021 4:14 PM CST Received a fax for the patient to be seen by Rheumatology. LMOR for patient to contact the office to schedule VACUUM APPLICATOR OPERATOR appointment with Dr. Steven. Called referral x1 STITCH FRONT EDGE TAPE SEWER documented in this encounter Plan of Treatment Not on file documented as of this encounter Visit Diagnoses Not on filedocumented in this encounter Care Teams Fashion Merchandiser Relationship Specialty Start Date End Date Yumiko Jones MD [address] [place] [address] PCP - General Pediatrics 04/09/19 documented as of this encounter
--- OUTSIDE RECORDS SUMMARY | 2024-12-02 23:08 | XMS_ITS | Encounter Summary ---
Author Organization [facility] Address [address] [place] [address] Care Team Providers Care Transit Operator Name Role Phone Gadiel Gustafson MD Primary Care Provider [phone] Encounter Details Date Type Department Care Team [...] st Contact Info) Description 12/04/2024 10:45 AM ENTERTAINMENT AGENT Office Visit [facility] OBGYN [address] [facility] [address] [place] [address] [place] [address] [place] [address] 01/31/2025 2:30 PM ENTERTAINMENT AGENT Office Visit [facility] OBGYN [address] [address] [address] [place] [address] [place] [address] [place] [address] documented as of this encounter Visit Diagnoses Not on filedocumented in this encounter Additional Health Concerns Assessment Noted Time PHQ-9 Depression Total Score: 3 01/10/20 24 2:22 PM ENTERTAINMENT AGENT documented as of this encounter Care Teams Transit Operator Relationship Specialty Start Date End Date Gadiel Gustafson MD [address] [place] [address] PCP - General Internal Medicine 09/29/23 documented as of this encounter
--- OUTSIDE RECORDS SUMMARY | 2024-12-02 23:08 | XMS_ITS | Encounter Summary ---
Author Organization [facility] Address [address] [place] [address] Care Team Providers Care Development Engineer Name Role Phone Gadiel Gustafson MD Primary Care Provider [phone] Reason for Visit * Reason Comments [facility] Encounter Details Date Type Department Care Team (Late st Contact Info) Description 05/03/2024 Patient Outreach [facility] [address] [facility] [place] [address] [facility] Care Social History Tobacco Use Types Packs/Day Years Used Date Smoking Tobacco: Never Smokeless Tobacco: Never Alcohol Use Standard Drinks/Week Comments Yes 0 (1 standard drink = 0.6 oz pur e alcohol) Sex and Gender Information Value Date Recorded Sex Assigned at Not on file Gender Identity Not on file Sexual Orientation Not on file documented as of this encounter Progress Notes * [facility] - 05/03/2024 8:32 PM CDT May 03, 2024 05/03/2024 0.38 Minutes -- Patient Contact 05/03/2024 4.90 Minutes -- Patient Contact 05/03/2024 5.00 Minutes -- Clinical Case Preparation 05/03/2024 5.00 Minutes -- Registry Management Primary Diagnosis: F43.23 - Adjustment disorder with mixed anxiety and depressed mood Called patient to follow up on behavioral health goals and treatment progress. Patient reports the following symptom or stressors: Patient states she is feeling disconnected and like she is dissociating . Patient states it feels like she is going through the motions. Patient states it when she is with people and alone. Assisted patient with processing identified symptom/stressor by: Using psychoeducation and active listening. Collaborative Skin Piler will follow up with patient 05/15 Clinician met with the patient via telepractice. Patient is aware that the contact is conducted viainteractive audio and consents to treatment in this way. Patient's identity was confirmed. Clinician verified the patient's physical location during the contact and local emergency contacts. Patient has been included in the caseload review activities and consulted on as needed. Kathrin Hutchins [facility] Collaborative Skin Piler Saige May 22, 2024 Assessment(s) FERNANDEZ-7: 6 05/22/2024 29.18 Minutes -- Patient Contact 05/22/2024 5.00 Minutes -- Clinical Case Preparation 05/22/2024 5.00 Minutes -- Registry Management Primary Diagnosis: F43.23 - Adjustment disorder with mixed anxiety and depressed mood [facility] Care Follow Up Consultation Date: 05/22/2024 Patient Name: Daiana Spencer Referring Collaborative Care Provider: Mell Strong Patient location at time of contact: Home Patient's identity confirmed: yes This encounter was completed via two-way synchronous: Phone Daiana is a 23 year old female who presents for evaluation and treatment for symptoms of: F43.23 - Adjustment disorder with mixed anxiety and depressed mood Based on patient's reported symptoms during today's contact, this clinician assesses that patient'sdepression symptoms are Improving. Patient does not report suicidal ideation or self harm. Patient reports the following: Anxiety Symptoms: feeling nervous/anxious, trouble with multiple worries, irritability, Depressive Symptoms: depressed mood, trouble sleeping, fatigue, trouble concentrating, Manic Symptoms: None reported Psychotic Symptoms: None reported Symptoms of Trauma: None reported Eating Patterns: None reported Sleeping Patterns: Patient reports sleep has improved. Change to current stressors, if any: Patient states she just got a promotion from the [employer] so she has more responsibility, Patient states she has been struggling irritability within her family. Patient states she does better when she is distracted. MEDICATIONS: Patient update regarding medications: Wellbutrin 150 mg taking as prescribed. PLAN/INTERVENTIONS Patient/guardian identifies the following targeted symptoms for treatment: decrease symptoms of anxiety and depression. Today's SMART Goal: Patient will look over Dialectic Behavior Therapy nightmare protocol. Progress: Patient was ablet to get on a sleep schedule. Clinician utilized Dialectic Behavior Therapy and active listening to aid patient/guardian in decreasing symptoms of anxiety and depression. Follow up plan: Follow up 06/05 BALDEV Sinha Collaborative Skin Piler I 05/22/2024 5.00 Minutes -- Community Resources (Research and/or Contact) 05/22/2024 2.00 Minutes -- Registry Management Primary Diagnosis: F43.23 - Adjustment disorder with mixed anxiety and depressed mood Date: 05/22/2024 Patient Name: Daiana Spencer Referring Collaborative Care Provider: [email or web address] Collaborative Skin Piler reviewed patient's chart to determine if patient could benefit from possible resources, clinical supervision, and/or a check-in. Collaborative Skin Piler emailed Dialectic Behavior Therapy nightmare protocol. BALDEV Sinha Collaborative Skin Piler I documented in this encounter Plan of Treatment Upcoming Encounters Date Type Department Care Team (Late st Contact Info) Description 12/04/2024 10:45 AM PHARMACIST HELPER Office Visit [facility] [address] [address] [place] [address] [place] [address] [address] [address] 01/31/2025 2:30 PM PHARMACIST HELPER Office Visit [facility] OBGYN [address] [place] [address] [place] [address] [address] documented as of this encounter Visit Diagnoses Not on filedocumented in this encounter Additional Health Concerns Assessment Noted Time PHQ-9 Depression Total Score: 3 01/10/20 24 2:22 PM PHARMACIST HELPER documented as of this encounter Care Teams Development Engineer Relationship Specialty Start [place] [address] [place] [address] PCP - General Internal Medicine 09/29/23 documented as of this encounter
--- OUTSIDE RECORDS SUMMARY | 2024-12-02 23:08 | XMS_ITS | Encounter Summary ---
Author Organization [facility] Address [address] [place] [address] Care Team Providers Care Foundation Digger Name Role Phone Gadiel Gustafson MD Primary Care Provider Reason for Visit * Reason Comments [facility] Encounter Details Date Type Department Care Team (Late st Contact Info) Description 04/10/2024 Patient Outreach [facility] Primary Care - [facility] [address] [place] [address] [facility] Care Social History Tobacco Use Types Packs/Day Years Used Date Smoking Tobacco: Never Smokeless Tobacco: Never Alcohol Use Standard Drinks/Week Comments Yes 0 (1 standard drink = 0.6 oz pur e alcohol) Sex and Gender Information Value Date Recorded Sex Assigned at Not on file Gender Identity Not on file Sexual Orientation Not on file documented as of this encounter Progress Notes * [facility] - 04/10/2024 6:48 PM CDT April 10, 2024 04/10/2024 0.97 Minutes -- Patient Contact 04/10/2024 4.00 Minutes -- Patient Related Correspondence 04/10/2024 2.00 Minutes -- Registry Management Primary Diagnosis: F43.23 - Adjustment disorder with mixed anxiety and depressed mood Collaborative Assistant Import Manager contacted patient and patient asked to reschedule due to being sick. Appt set for 04/17 Kathrin Hutchins [facility] Collaborative Assistant Import Manager Saige April 17, 2024 04/17/2024 0.53 Minutes -- Patient Contact 04/17/2024 2.00 Minutes -- Patient Related Correspondence 04/17/2024 2.00 Minutes -- Registry Management Primary Diagnosis: F43.23 - Adjustment disorder with mixed anxiety and depressed mood Date: 04/17/2024 Patient Name: Daiana Spencer Referring Collaborative Care Provider: Mell Strong Outreach Attempt # 1 Collaborative Assistant Import Manager attempted to reach patient by phone for follow-up behavioral health services. Patient was not available and Collaborative Assistant Import Manager left a voicemail. Collaborative Assistant Import Manager will continue with outreach attempts and remain available as needed. Kathrin Hutchins [facility] Collaborative Assistant Import Manager I April 21, 2024 04/21/2024 0.53 Minutes -- Patient Contact 04/21/2024 2.00 Minutes -- Patient Related Correspondence 04/21/2024 2.00 Minutes -- Registry Management Primary Diagnosis: F43.23 - Adjustment disorder with mixed anxiety and depressed mood Date: 04/21/2024 Patient Name: Daiana Tj Referring Collaborative Care Provider: Mell Strong Outreach Attempt # 2 Collaborative Assistant Import Manager attempted to reach patient by phone for follow-up behavioral health services. Patient was not available and Collaborative Assistant Import Manager left a voicemail . Collaborative Assistant Import Manager will continue with outreach attempts and remain available as needed. VINCENT Sinha Collaborative Assistant Import Manager I April 25, 2024 04/25/2024 0.65 Minutes -- Patient Contact 04/25/2024 2.00 Minutes -- Patient Related Correspondence 04/25/2024 2.00 Minutes -- Registry Management Primary Diagnosis: F43.23 - Adjustment disorder with mixed anxiety and depressed mood Date: 04/25/2024 Patient Name: Daiana Spencer Referring Collaborative Care Provider: Mell Strong Outreach Attempt # 3 Collaborative Assistant Import Manager attempted to reach patient by phone for follow-up behavioral health services. Patient was not available and Collaborative Assistant Import Manager left a voicemail. Collaborative Assistant Import Manager will continue with outreach attempts and remain available as needed. Kathrin Hutchins [facility] Collaborative Assistant Import Manager I 04/25/2024 5.00 Minutes -- Clinical Case Preparation 04/25/2024 2.00 Minutes -- Registry Management Primary Diagnosis: F43.23 - Adjustment disorder with mixed anxiety and depressed mood Date: 04/25/2024 Patient Name: Daiana Tj Referring Collaborative Care Provider: Mell Strong Collaborative Assistant Import Manager reviewed patient's chart to determine if patient could benefit from possible resources, clinical supervision, and/or a check-in. Collaborative Assistant Import Manager worked on relapse prevention plan. BALDEV Sinha Collaborative Assistant Import Manager I April 26, 2024 Assessment(s) FERNANDEZ-7: 8 04/26/2024 0.72 Minutes -- Patient Contact 04/26/2024 2.00 Minutes -- Patient Related Correspondence 04/26/2024 2.00 Minutes -- Registry Management Primary Diagnosis: F43.23 - Adjustment disorder with mixed anxiety and depressed mood Date: 04/26/2024 Patient Name: Daiana Spencer Referring Collaborative Care Provider: Mell Strong Outreach Attempt # 4 Collaborative Assistant Import Manager attempted to reach patient by phone for follow-up behavioral health services. Patient was not available and Collaborative Assistant Import Manager left a voicemail . Collaborative Assistant Import Manager will continue with outreach attempts and remain available as needed. BALDEV Sinha Collaborative Assistant Import Manager I 04/26/2024 7.10 Minutes -- Patient Contact 04/26/2024 5.00 Minutes -- Clinical Case Preparation 04/26/2024 5.00 Minutes -- Registry Management Primary Diagnosis: F43.23 - Adjustment disorder with mixed anxiety and depressed mood Called patient to follow up on behavioral health goals and treatment progress. Patient reports the following symptom or stressors: Patient was able to complete surveys for this month. Patient is scheduled to meet with Collaborative Assistant Import Manager 6 Assisted patient with processing identified symptom/stressor by: Using motivational interviewing. Collaborative Assistant Import Manager will follow up with patient 05/03 Clinician met with the patient via telepractice. Patient is aware that the contact is conducted viainteractive audio and consents to treatment in this way. Patient's identity was confirmed. Clinician verified the patient's physical location during the contact and local emergency contacts. Patient has been included in the caseload review activities and consulted on as needed. BALDEV Sinha Collaborative Assistant Import Manager I 04/26/2024 0.73 Minutes -- Patient Contact 04/26/2024 1.00 Minutes -- Patient Related Correspondence 04/26/2024 1.00 Minutes -- Registry Management Primary Diagnosis: F43.23 - Adjustment disorder with mixed anxiety and depressed mood Collaborative Assistant Import Manager rescheduled time for patient to 3:15 on 05/03 BALDEV Sinha Collaborative Assistant Import Manager I documented in this encounter Plan of Treatment Upcoming Encounters Date Type Department Care Team (Late st Contact Info) Description 12/04/2024 10:45 AM WHEAT CLEANER Office Visit [facility] OBGYN [address] [place] [address] [place] [address] [place] [address] 01/31/2025 2:30 PM WHEAT CLEANER Office Visit [facility] OBGYN [address] [place] [address] [place] [address] [place] [address] documented as of this encounter Visit Diagnoses Not on filedocumented in this encounter Additional Health Concerns Assessment Noted Time PHQ-9 Depression Total Score: 3 01/10/20 24 2:22 PM WHEAT CLEANER documented as of this encounter Care Teams Foundation Digger Relationship Specialty Start Date End Date Gadiel Gustafson MD [address] [place] [address] PCP - General Internal Medicine 09/29/23 documented as of this encounter
--- OUTSIDE RECORDS SUMMARY | 2024-12-02 23:08 | XMS_ITS | Encounter Summary ---
Author Organization [facility] Address [address] [place] [address] Care Team Providers Care Bobbin Fixer Name Role Phone Gadiel Gustafson MD Primary Care Provider [phone] Encounter Details Date Type Department Care Team [...] st Contact Info) Description 12/04/2024 10:45 AM APPLIED COMPUTER SCIENCE PROFESSOR Office Visit [facility] OBGYN [address] [facility] [address] [place] [address] [place] [address] [place] [address] 01/31/2025 2:30 PM APPLIED COMPUTER SCIENCE PROFESSOR Office Visit [facility] OBGYN [address] [place] [address] [place] [address] [place] [address] documented as of this encounter Visit Diagnoses Not on filedocumented in this encounter Additional Health Concerns Assessment Noted Time PHQ-9 Depression Total Score: 3 01/10/20 24 2:22 PM APPLIED COMPUTER SCIENCE PROFESSOR documented as of this encounter Care Teams Bobbin Fixer Relationship Specialty Start Date End Date Gadiel Gustafson MD [address] [place] [address] PCP - General Internal Medicine 09/29/23 documented as of this encounter
--- OUTSIDE RECORDS SUMMARY | 2024-12-02 23:08 | XMS_ITS | Encounter Summary ---
Author Organization [facility] Address [address] [place] [address] Care Team Providers Care Nutritionists Name Role Phone Gadiel Gustafson MD Primary Care Provider [phone] Encounter Details Date Type Department Care Team (Late st Contact Info) Description 05/30/2024 External Device Data STL ABSTRACTION Provider, Abstract [...] st Contact Info) Description 12/04/2024 10:45 AM MOBILE MANAGER Office Visit [facility] OBGYN [address] [facility] [address] [place] [address] [place] [address] [place] [address] 01/31/2025 2:30 PM MOBILE MANAGER Office Visit [facility] OBGYN [address] [place] [address] [place] [address] [place] [address] documented as of this encounter Visit Diagnoses Not on filedocumented in this encounter Additional Health Concerns Assessment Noted Time PHQ-9 Depression Total Score: 3 01/10/20 24 2:22 PM MOBILE MANAGER documented as of this encounter Care Teams Nutritionists Relationship Specialty Start Date End Date Gadiel Gustafson MD [address] [place] [address] PCP - General Internal Medicine 09/29/23 documented as of this encounter
--- OUTSIDE RECORDS SUMMARY | 2024-12-02 23:09 | XMS_ITS | Encounter Summary ---
Author Organization [facility] Address [address] [place] [address] Care Team Providers Care Storyboard Artist Name Role Phone Gadiel Gustafson MD Primary Care Provider [phone] Reason for Visit * Reason Comments Sleep Problem Cannot sleep at nigh t and when she does fall asleep she has a hard tie waking up. Encounter Details Date Type Department Care Team (Late st Contact Info) Description 11/24/2023 11:00 AM BLOCK TRADER Office Visit [facility] Primary Care - [address] [place] [address] Mell Strong, [facility] [address] [place] [address] Fatigue, unspecified type (Primary Dx); Depression with anxiety Social History Tobacco Use Types Packs/Day Years Used Date Smoking Tobacco: Never Smokeless Tobacco: Never Alcohol Use Standard Drinks/Week Comments Never 0 (1 standard drink = 0.6 oz pur e alcohol) Sex and Gender Information Value Date Recorded Sex Assigned at Not on file Gender Identity Not on file Sexual Orientation Not on file documented as of this encounter Last Filed Vital Signs Vital Sign Reading Time Taken Comments Blood Pressure 98/60 11/24/2023 11:12 AM BLOCK TRADER Pulse 96 11/24/2023 11:12 AM BLOCK TRADER Temperature 36.2 ??C (97.1 ??F) 11/24/2023 11:[address] Respiratory Rate - - Oxygen Saturation 97% 11/24/2023 11:12 AM BLOCK TRADER Inhaled Oxygen Concentration - - Weight 49.3 kg (108 lb 9.6 oz) 11/24/2023 11:12 AM BLOCK TRADER Height 160 cm (5' 3 ) 11/24/2023 11:12 AM BLOCK TRADER Body Mass Index 19.24 11/24/2023 11:12 AM BLOCK TRADER documented in this encounter Progress Notes * Mell Strong, DRY CHARGE PROCESS ATTENDANT - 11/24/2023 11:00 AM CST HISTORY OF PRESENT ILLNESS Daiana Spencer, a 23 y.o. y.o. female presenting with a Chief Complaint of Chief Complaint Patient presents with Sleep Problem Cannot sleep at night and when she does fall asleep she has a hard tie waking up. Subjective HPI Daiana Ahmadi is a 23 y.o. female who presents for an acute visit. Last time, we recommended: Continue current medications. Refilled clindamycin gel. Get fasting blood work. Recommend [facility]. We'll call you with results. Continue healthy diet and exercise. Referral for HEATER PLANER OPERATOR for well woman exam. Patient submitted HPI (if performed, immediately below): HPI Insomnia - Medications include: none, has tried melatonin and benadryl - Hours of sleep per day: ~10-12, sometimes 16 - Sleep onset/maintenance?: onset - Side effects?: felt hungover and groggy when she tried OTC treatments - Feels like she is sleeping too much, sleeps through alarms, turns off alarms in her sleep Fatigue: No results found for: WBC , MANUALWBC , HGB , HGBPOC , HCT , HCTPOC , PLT , MCV No results found for: TSH , TSHULTRA , THYROIDSTIM No results found for: EF No results found for: NA , K , CL , CO2 , CA , BUN , CREAT , GLUCOSE , TOTALPROTEIN , ALBUMIN , BILITOTAL , ALKPHOS , AST , ALT , ANIONGAP , BCRATIO No results found for: MZJU769 , VITD25 , IZHF46UTE0 , EQGQ78CSV8 , XAIE20GUXX , HAUD2WKAVAAE , JAGB7OLFWCSS , VITAMINDTO , CSHZGIQ068 No results found for: AOXJPALM99 - Duration: years - Sleeps ~10-12 hours/night, reports issues with insomnia - Denies excessive snoring or apnea episodes at night - Denies chest pain, shortness of breath, palpitations, or swelling - Denies night sweats, lymphadenopathy - Denies heat or cold intolerance - Reports depression or anxiety Diet: sometimes skips meals, 2 meals a day, well hydrated, moderate caffeine Exercise: not much Problem Depression With Anxiety - Current medications include: none, has tried Lexapro and trazodone - Mood: good - Insomnia?: yes - Decreased energy?: yes - Chantelle symptoms (e.g. periods of increased energy, risky behavior, and other symptoms typical of chantelle): yes - Severe/risky symptoms including suicidal ideation/homicidal ideation/hallucinations/delusions?: no - Concurrent anxiety?: yes - Panic attacks: no - Stressors: sleep issues - Previous hospitalization: - Psychiatry: no - Counselor: yes, currently TOBACCO COUNSELING She was counseled to discontinue [...] area 2 times daily. 30 Gram 3 No current facility-administered medications on file prior to visit. Past Surgical History: Procedure Laterality Date PT DENIES RELEVANT SURGICAL HISTORY Family History Problem Relation Name Age of Onset Healthy Father Healthy Mother Healthy Sister Healthy Brother Social History Socioeconomic History Marital status: Single Number of children: 0 Tobacco Use Smoking status: Never Smokeless tobacco: Never Vaping Use Vaping Use: Every day Substance and Sexual Activity Alcohol use: Never Drug use: Never Sexual activity: Yes Partners: Male control/protection: Condom REVIEW OF SYSTEMS Review of Systems Constitutional: [...] and myalgias. Skin: Negative for rash. Neurological: Positive for headaches. Negative for dizziness. Psychiatric/Behavioral: Positive for dysphoric mood and sleep disturbance. The patient is nervous/anxious. Objective PHYSICAL EXAM Vitals: 11/24/23 1112 BP: 98/60 Pulse: 96 Temp: 97.1 ??F (36.2 ??C) SpO2: 97% Weight: 49.3 kg (108 lb 9.6 oz) Height: 5' 3 (1.6 m) BMI Readings from Last 3 Encounters: 11/24/23 19.24 kg/m?? 09/29/23 19.30 kg/m?? 10/01/22 19.20 kg/m?? Physical Exam Vitals and nursing note [...] wheezing. Abdominal: Palpations: Abdomen is soft. Musculoskeletal: General: Normal range of motion. Skin: General: Skin is warm and dry. Neurological: Mental Status: She is alert and oriented to person, place, and time. Deep Tendon Reflexes: Reflexes are normal and symmetric. Assessment ASSESSMENT and PLAN: Problem List Items Addressed This Visit Other Depression with anxiety The patient is doing well. Continue medications per AVS. The patient was asked to report any symptoms of depression. Asked to report any problems with sleep / interest / guilt / energy / concentration / appetite / psychomotor retardation / or suicidal thoughts. Other Visit Diagnoses Fatigue, unspecified type - Primary Relevant Orders VITAMIN B12 AND FOLATE Fatigue: Unclear etiology. Previous labs reviewed, including blood counts, kidney and liver testing, thyroid testing, and vitamin testing (if available). Will recommend work-up, as above. Get labs. Healthy diet and exercise advised. Patient advised to perform good sleep hygiene. Further instructions will be given based on results. List of orders placed this encounter: Orders Placed This Encounter VITAMIN B12 AND FOLATE Patient Instructions Patient Instructions Get fasting blood work that was previously ordered. Recommend [facility]. We'll call you with results. Continue healthy diet and exercise. Stay well hydrated. Recommend vaping cessation. Meloxicam and Flexeril may cause drowsiness. Recommend decreased caffeine intake, may affect sleep. Healthy sleep habits. Parts of this note were generated using medical dictation software, Radico. Please excuse any typographical errors that may have occurred as a result of this. TALISHA PEOPLES K TRADER documented in this encounter Miscellaneous Notes * Assessment & Plan Note - Mell Strong FNP - 11/24/2023 11:36 AM CSTAssociated Problem(s): Depression with anxiety The patient is doing well. Continue medications per AVS. The patient was asked to report any symptoms of depression. Asked to report any problems with sleep / interest / guilt / energy / concentration / appetite / psychomotor retardation / or suicidal thoughts. K TRADER * Patient Instructions - Mell Strong FNP - 11/24/2023 11:25 AM BLOCK TRADER Get fasting blood work that was previously ordered. Recommend [facility]. We'll call you with results. Continue healthy diet and exercise. Stay well hydrated. Recommend vaping cessation. Meloxicam and Flexeril may cause drowsiness. Recommend decreased caffeine intake, may affect sleep. Healthy sleep habits. K TRADER documented in this encounter Plan of Treatment Upcoming Encounters Date Type Department Care Team (Late st Contact Info) Description 12/04/2024 10:45 AM BLOCK TRADER Office Visit [facility] OBGYN [address] [place] [address] [place] [address] [place] [address] 01/31/2025 2:30 PM BLOCK TRADER Office Visit [facility] OBGYN [address] [place] [address] [place] [address] [place] [address] documented as of this encounter Procedures Procedure Name Priority Date/Time Associated Diagnosis Comments VITAMIN B12 AND FOLATE Routine 11/24/2023 12:01 PM BLOCK TRADER Fatigue, unspecified type documented in this encounter Results * VITAMIN B12 AND FOLATE (11/24/2023 12:01 PM BLOCK TRADER) VITAMIN B12 600 200 - 1100 pg/mL [facility] FOLATE, SERUM 14.9 ng/mL [facility] Comment: ? Reference Range ? Low: ? <3.4 ? Borderline: ?3.4-5.4 ? Normal: ?>5.4 Test Performed at: [facility] [address] [place], [place] ??[address] Angelia Da Silva MD Blood 11/24/2023 12:0 1 PM BLOCK TRADER 11/24/2023 12:02 PM BLOCK TRADER Mell Strong DRY CHARGE PROCESS ATTENDANT CHEMISTRY ORD ERABLES [facility] [phone] [facility] [address] [place] [address] documented in this encounter Visit Diagnoses Diagnosis Fatigue, unspecified type- Primary Depression with anxiety Dysthymic disorder documented in this encounter Additional Health Concerns Assessment Noted Time PHQ-9 Depression Total Score: 2 11/24/20 11:11 AM BLOCK TRADER documented as of this encounter Care Teams Storyboard Artist Relationship Specialty Start Date End Date Gadiel Gustafson MD [address] [place] [address] PCP - General Internal Medicine 09/29/23 documented as of this encounter
--- OUTSIDE RECORDS SUMMARY | 2024-12-02 23:09 | XMS_ITS | Encounter Summary ---
Author Organization [facility] Address [address] [place] [address] Care Team Providers Care Call Center Support Representative Name Role Phone Gadiel Gustafson MD Primary Care Provider [phone] Reason for Visit * Reason Comments Medication Assistance Encounter Details Date Type Department Care Team (Late st Contact Info) Description 01/13/2024 Telephone [facility] Primary Care - [address] [facility] [place] [address] Gadiel Gustafson MD [address] [place] [address] Medication Assistance Social History Tobacco Use Types Packs/Day Years [...] encounter Miscellaneous Notes * Telephone Encounter - Luba Hamlin - 01/13/2024 3:02 PM CST Missed call. Daianakeith Spencer is returning call from Yesenia Reason for call: medication - transfer to back line Call-back Number: no return call Patient encouraged to answer call from unknown number. [place] TEAM MEMBER * Telephone Encounter - Yesenia Zelaya RN - 01/13/2024 2:53 PM CST Images from the original note were not included. Called patient. Mailbox is full and cannot accept messages at this time. IL TEAM MEMBER * Telephone Encounter - Elma Cage PCT - 01/13/2024 10:11 AM RETAIL TEAM MEMBER Copied from [facility] #[id number]. Topic: Medication Request >> Jan 13, 2024 10:09 AM Elma Perez wrote: Caller is requesting: Medication Question from Patient Medication: buPROPion HCL (WELLBUTRIN XL) 150 mg Extended Release Patient/Caregiver Callback Number: [phone] Call Notes: Patient is going on vacation this weekend 01/15/24 and this medication states that she can't drink. She is wondering should she not take this medication while on vacation so she can drink and can she also drink caffeine? Patient is also requesting for seasonal allergy medication? Please a dvise <<< Document question details for Clinic in Call Notes section >>> <<< InBasket handoff (with NO call transfer) to Primary Care Nurse >>> <<< Select Quick Clinical Call. Enter appropriate PCN pool. Select provider and Create >>> <<< Inform Caller that someone from the clinic care team will call them back >>> [place] TEAM MEMBER documented in this encounter Plan of Treatment Upcoming Encounters Date Type Department Care Team (Late st Contact Info) Description 12/04/2024 10:45 AM RETAIL TEAM MEMBER Office Visit [facility] OBGYN [address] [place] [address] [place] [address] [place] [address] 01/31/2025 2:30 PM RETAIL TEAM MEMBER Office Visit [facility] OBGYN [address] [place] [address] [place] [address] [place] [address] documented as of this encounter Visit Diagnoses Not on filedocumented in this encounter Additional Health Concerns Assessment Noted Time PHQ-9 Depression Total Score: 3 01/10/20 24 2:22 PM RETAIL TEAM MEMBER documented as of this encounter Care Teams Call Center Support Representative Relationship Specialty Start Date End Date Gadiel Gustafson MD [address] [place] [address] PCP - General Internal Medicine 09/29/23 documented as of this encounter
--- OUTSIDE RECORDS SUMMARY | 2024-12-02 23:09 | XMS_ITS | Encounter Summary ---
Author Organization [facility] Address [address] [place] [address] Care Team Providers Care Claim Technician Name Role Phone Gadiel Gustafson MD Primary Care Provider [phone] Reason for Visit * Reason Onset Date Comments [facility] 01/24/2024 Encounter Details Date Type Department Care Team (Late st Contact Info) Description 01/24/2024 Patient Outreach [address] [address] Pravin Maddie [facility] Social History Tobacco Use Types Packs/Day Years [...] encounter Miscellaneous Notes * Telephone Encounter - Maddie Costello - 01/24/2024 1:51 PM CST [facility] - Initial Consultation Patient Name: Daiana Spencer Date: [...] symptoms Anxiety Score: 9 (01/24/2024 2:06 PM) Orange-Suicide Severity Rating Scale (Past Month) 1. Have [...] Follow up 01/30 @ 2pm Kathrin Costello [facility] Collaborative Shark Biologist [facility] [phone] CONDITIONER documented in this encounter Plan of Treatment Upcoming Encounters Date Type Department Care Team (Late st Contact Info) Description 12/04/2024 10:45 AM YARN CONDITIONER Office Visit [facility] OBGYN [address] [place] [address] [place] [address], [place] [address] 01/31/2025 2:30 PM YARN CONDITIONER Office Visit [facility] OBGYN [address] [place] [address] [place] [address] [place] [address] documented as of this encounter Visit Diagnoses Not on filedocumented in this encounter Additional Health Concerns Assessment Noted Time PHQ-9 Depression Total Score: 3 01/10/20 24 2:22 PM YARN CONDITIONER documented as of this encounter Care Teams Claim Technician Relationship Specialty Start Date End Date Gadiel Gustafson MD [address] [place] [address] PCP - General Internal Medicine 09/29/23 documented as of this encounter
--- OUTSIDE RECORDS SUMMARY | 2024-12-02 23:09 | XMS_ITS | Encounter Summary ---
Author Organization [facility] Address [address] [place] [address] Care Team Providers Care Edge Inker Name Role Phone Gadiel Gustafson MD Primary Care Provider [phone] Reason for Visit * Reason Comments [facility] Encounter Details Date Type Department Care Team (Late st Contact Info) Description 03/08/2024 Patient Outreach [facility] [address] [facility] [place] [address] [facility] Social History Tobacco Use Types [...] encounter Progress Notes * [facility] - 03/08/2024 8:30 PM CDT February 28, 2024 02/28/2024 15.75 Minutes -- Patient Contact 02/28/2024 5.00 Minutes -- Clinical Case Preparation 02/28/2024 4.00 Minutes -- Registry Management Primary Diagnosis: F43.23 - Adjustment disorder with mixed anxiety and depressed mood Called patient to follow up on behavioral health goals and treatment progress. Patient reports the following symptom or stressors: Patient states she has been feeling better and states she has more motivation. Patient states she thinks the medication is working. Patient reportsgoing on a hike and starting to work out. Assisted patient with processing identified symptom/stressor by: Using motivational interviewing and active listening. Collaborative Surgery Tech will follow up with patient 03/08 Clinician met with the patient via telepractice. Patient is aware that the contact is conducted viainteractive audio and consents to treatment in this way. Patient's identity was confirmed. Clinician verified the patient's physical location during the contact and local emergency contacts. Patient has been included in the caseload review activities and consulted on as needed. BALDEV Pandey Collaborative Surgery Tech I March 08, 2024 Assessment(s) FERNANDEZ-7: 10 03/08/2024 12.87 Minutes -- Patient Contact 03/08/2024 5.00 Minutes -- Clinical Case Preparation 03/08/2024 4.00 Minutes -- Registry Management Primary Diagnosis: F43.23 - Adjustment disorder with mixed anxiety and depressed mood Called patient to follow up on behavioral health goals and treatment progress. Patient reports the following symptom or stressors: Patient states she would like to work on motivation. Patient reports she would like to set a goal to clean her room. Patient will also make sure tobrush her teeth 5 times out of the next 7 days. Assisted patient with processing identified symptom/stressor by: Using motivational interviewing and Dialectic Behavior Therapy Collaborative Surgery Tech will follow up with patient 03/16 Clinician met with the patient via telepractice. Patient is aware that the contact is conducted viainteractive audio and consents to treatment in this way. Patient's identity was confirmed. Clinician verified the patient's physical location during the contact and local emergency contacts. Patient has been included in the caseload review activities and consulted on as needed. BALDEV Pandey Collaborative Surgery Tech I March 16, 2024 03/16/2024 0.57 Minutes -- Patient Contact 03/16/2024 2.00 Minutes -- Patient Related Correspondence 03/16/2024 2.00 Minutes -- Registry Management Primary Diagnosis: F43.23 - Adjustment disorder with mixed anxiety and depressed mood Date: 03/16/2024 Patient Name: Daiana Spencer Referring Collaborative Care Provider: Mell Strong Outreach Attempt # 1 Collaborative Surgery Tech attempted to reach patient by phone for follow-up behavioral health services. Patient was not available and Collaborative Surgery Tech left a vociemail . Collaborative Surgery Tech will continue with outreach attempts and remain available as needed. BALDEV Pandey Collaborative Surgery Tech I March 27, 2024 03/27/2024 7.03 Minutes -- Patient Contact 03/27/2024 5.00 Minutes -- Clinical Case Preparation 03/27/2024 5.00 Minutes -- Registry Management Primary Diagnosis: F43.23 - Adjustment disorder with mixed anxiety and depressed mood Called patient to follow up on behavioral health goals and treatment progress. Patient reports the following symptom or stressors: Patient reports things are going good at the moment. Patient denies having anything she would like to work on at the present time. Patient reports she is taking meds as prescribed. Assisted patient with processing identified symptom/stressor by: Using motivational interviewing. Collaborative Surgery Tech will follow up with patient 6 Clinician met with the patient via telepractice. Patient is aware that the contact is conducted viainteractive audio and consents to treatment in this way. Patient's identity was confirmed. Clinician verified the patient's physical location during the contact and local emergency contacts. Patient has been included in the caseload review activities and consulted on as needed. Kathrin Costello [facility] Collaborative Surgery Tech I documented in this encounter Plan of Treatment Upcoming Encounters Date Type Department Care Team (Late st Contact Info) Description 12/04/2024 10:45 AM BSA OFFICER Office Visit [facility] OBGYN [address] [place] [address] [place] [address] [address] 01/31/2025 2:30 PM BSA OFFICER Office Visit [facility] OBGYN [address] [place] [address] [place] [address] [place] [address] documented as of this encounter Visit Diagnoses Not on filedocumented in this encounter Additional Health Concerns Assessment Noted Time PHQ-9 Depression Total Score: 3 01/10/20 24 2:22 PM BSA OFFICER documented as of this encounter Care Teams Edge Inker Relationship Specialty Start Date End Date Gadiel Gustafson MD [facility], [id number] [place] [address] PCP - General Internal Medicine 09/29/23 documented as of this encounter
--- OUTSIDE RECORDS SUMMARY | 2024-12-02 23:09 | XMS_ITS | Encounter Summary ---
Author Organization [facility] Address [address] [place] [address] Care Team Providers Care Driver Merchandiser Name Role Phone Gadiel Gustafson MD Primary Care Provider [phone] Reason for Visit * Reason Onset Date Comments Results 03/17/2024 Encounter Details Date Type Department Care Team (Late st Contact Info) Description 03/17/2024 Telephone [facility] [address] [facility] [place] [address] Gadiel Gustafson MD [address] [facility] [place] [address] Results Social History Tobacco Use Types Packs/Day Years [...] encounter Miscellaneous Notes * Telephone Encounter - Mariela Osborne - 03/17/2024 3:23 PM CDT Left message for patient regarding test results. * Telephone Encounter - Mariela Osborne - 03/17/2024 3:22 PM CDT ----- Message from TALISHA Payan sent at 03/17/2024 2:12 PM CDT ----- Contact patient with results and recommendations. According to your Tempus test, it looks like Wellbutrin is an appropriate medication of choice for you. How are you doing on this medication? documented in this encounter Plan of Treatment Upcoming Encounters Date Type Department Care Team (Late st Contact Info) Description 12/04/2024 10:45 AM AIR VICE MARSHAL Office Visit [facility] OBGYN [address] [place] [address] [place] [address] [place] [address] 01/31/2025 2:30 PM AIR VICE MARSHAL Office Visit [facility] OBGYN [address] [place] [address] [place] [address] [place] [address] documented as of this encounter Visit Diagnoses Not on filedocumented in this encounter Additional Health Concerns Assessment Noted Time PHQ-9 Depression Total Score: 3 01/10/20 24 2:22 PM AIR VICE MARSHAL documented as of this encounter Care Teams Driver Merchandiser Relationship Specialty Start Date End Date Gadiel Gustafson MD [address] [place] [address] PCP - General Internal Medicine 09/29/23 documented as of this encounter
--- OUTSIDE RECORDS SUMMARY | 2024-12-02 23:09 | XMS_ITS | Encounter Summary ---
Author Organization [facility] Address [address] [place] [address] Care Team Providers Care Wallpaper Remover Steam Name Role Phone Unavailable Primary Care Provider Unavailabl e Reason for Visit * Reason Onset Date Comments missed aapt 07/26/2023 Encounter Details Date Type Department Care Team (Late st Contact Info) Description 07/26/2023 Telephone [facility] Internal Medicine - [facility] [address] [facility] [address] [place] [address] Cecilia Muñoz, PERIPHERAL EDP EQUIPMENT OPERATOR [address] [facility] [facility] [address] [place] [address] missed aapt Social History Tobacco Use Types Packs/Day Years [...] encounter Miscellaneous Notes * Telephone Encounter - Annamaria Duarte - 08/05/2023 10:34 AM CDT Letter returned bad address * Telephone Encounter - Annamaria Duarte - 07/26/2023 9:20 AM CDT Pt missed apt on 07/23/23,tried to reach by phone, could not lm letter sent documented in this encounter Plan of Treatment Upcoming Encounters Date Type Department Care Team (Late st Contact Info) Description 12/04/2024 10:45 AM ASPHALT TAR AND GRAVEL ROOFER Office Visit [facility] OBGYN [address] [place] [address] [place] [address] [place] [address] 01/31/2025 2:30 PM ASPHALT TAR AND GRAVEL ROOFER Office Visit [facility] OBGYN [address] [address] [place] [address] [place] [address] [place] [address] documented as of this encounter Visit Diagnoses Not on filedocumented in this encounter
--- OUTSIDE RECORDS SUMMARY | 2024-12-02 23:09 | XMS_ITS | Encounter Summary ---
Author Organization [facility] Address [address] [place] [address] Care Team Providers Care Medical Device Name Role Phone Gadiel Gustafson MD Primary Care Provider [phone] Reason for Visit * Reason Onset Date Comments Results 01/13/2024 Encounter Details Date Type Department Care Team (Late st Contact Info) Description 01/13/2024 Telephone [facility] Primary Care - [address] [place] [address] Mell Strong, [facility] [address] [place] [address] Results Social History Tobacco Use Types Packs/Day [...] st Contact Info) Description 12/04/2024 10:45 AM CLIENT EXPERIENCE MANAGER Office Visit [facility] OBGYN [address] [place] [address] [place] [address] [place] [address] 01/31/2025 2:30 PM CLIENT EXPERIENCE MANAGER Office Visit [facility] OBGYN [address] [place] [address] [place] [address] [place] [address] documented as of this encounter Visit Diagnoses Not on filedocumented in this encounter Additional Health Concerns Assessment Noted Time PHQ-9 Depression Total Score: 3 01/10/20 24 2:22 PM CLIENT EXPERIENCE MANAGER documented as of this encounter Care Teams Medical Device Relationship Specialty Start Date End Date Gadiel Gustafson MD [address] [place] [address] PCP - General Internal Medicine 09/29/23 documented as of this encounter
--- OUTSIDE RECORDS SUMMARY | 2024-12-02 23:09 | XMS_ITS | Encounter Summary ---
Author Organization [facility] Address [address] [place] [address] Care Team Providers Care Lead Section Supervisor Name Role Phone Gadiel Gustafson MD Primary Care Provider [phone] Encounter Details Date Type Department Care Team (Late st Contact Info) Description 01/28/2024 External Device Data STL ABSTRACTION Provider, Abstract [...] st Contact Info) Description 12/04/2024 10:45 AM HR INTERNSHIP Office Visit [facility] OBGYN [address] [facility] [address] [place] [address] [place] [address] [place] [address] 01/31/2025 2:30 PM HR INTERNSHIP Office Visit [facility] OBGYN [address] [place] [address] [place] [address] [place] [address] documented as of this encounter Visit Diagnoses Not on filedocumented in this encounter Additional Health Concerns Assessment Noted Time PHQ-9 Depression Total Score: 3 01/10/20 24 2:22 PM HR INTERNSHIP documented as of this encounter Care Teams Lead Section Supervisor Relationship Specialty Start Date End Date Gadiel Gustafson MD [address] [place] [address] PCP - General Internal Medicine 09/29/23 documented as of this encounter
--- OUTSIDE RECORDS SUMMARY | 2024-12-02 23:09 | XMS_ITS | Encounter Summary ---
Author Organization [facility] Address [address] [place] [address] Care Team Providers Care Quick Print Operator Name Role Phone Gadiel Gustafson MD Primary Care Provider [phone] Reason for Referral * Behavioral Health - Outpatient (Routine) - Closed Specialty Diagnoses / Procedures Referred By Ami irene Referred To Contact Diagnoses Depression with anxiety Procedures NC OFFICE/OUTPATIENT ESTABLISHED MOD MDM 30 MIN NC OFFICE/OUTPATIENT NEW MODERATE MDM 45 MINUTES Mell Strong FNP [address] [place] [address] Referral ID Status Reason Start Date Expiration Date Visits Re quested Visits Authorized [id number] Closed 01/10/2024 01/09/2025 1 1 ER ANALYST * Behavioral Health - Outpatient (Routine) - Open Specialty Diagnoses / Procedures Referred By Ami irene Referred To Contact Psychiatry Diagnoses Depression with anxiety Procedures NC OFFICE/OUTPATIENT ESTABLISHED MOD MDM 30 MIN NC OFFICE/OUTPATIENT NEW MODERATE MDM 45 MINUTES Mell Strong FNP [address] [place] [address] Referral ID Status Reason Start Date Expiration Date Visits Re quested Visits Authorized [id number] Open 01/10/2024 01/09/2025 1 1 ER ANALYST Reason for Visit * Reason Comments Depression Sleep is really bad, and is feeling sad. Encounter Details Date Type Department Care Team (Late st Contact Info) Description 01/10/2024 2:20 PM DEALER ANALYST Office Visit [facility] Primary Care - [address] [place] [address] Mell Strong, TALISHA [address] [place] [address] Depression with anxiety (Primary Dx) Social History Tobacco Use Types [...] Sign Reading Time Taken Comments Blood Pressure 100/60 01/10/2024 2:23 PM DEALER ANALYST Pulse 78 01/10/2024 2:23 PM DEALER ANALYST Temperature 36.4 ??C (97.6 ??F) 01/10/2024 2:23 PM CS T Respiratory Rate - - Oxygen Saturation 99% 01/10/2024 2:23 PM DEALER ANALYST Inhaled Oxygen Concentration - - Weight 48.1 kg (106 lb) 01/10/2024 2:23 PM DEALER ANALYST Height 160 cm (5' 3 ) 01/10/2024 2:23 PM DEALER ANALYST Body Mass Index 18.78 01/10/2024 2:23 PM DEALER ANALYST documented in this encounter Patient Instructions * Attachments The following attachments cannot be sent through Care Everywhere. * Bupropion Extended Release Oral Tablet (BUPROPION HCL EXTENDED-RELEASE (ANTIDEPRESSANT) - ORAL) ([place]) documented in this encounter Progress Notes * Mell Strong FNP - 01/10/2024 2:20 PM CST HISTORY OF PRESENT ILLNESS Daiana Spencer, a 23 y.o. y.o. female presenting with a Chief Complaint of Chief Complaint Patient presents with Depression Sleep is really bad, and is feeling sad. Subjective HPI Daiana Ahmadi is a 23 y.o. female who presents for an acute visit. Last time, we recommended: Get fasting blood work that was previously ordered. Recommend [facility]. We'll call you with results. Continue healthy diet and exercise. Stay well hydrated. Recommend vaping cessation. Meloxicam and Flexeril may cause drowsiness. Recommend decreased caffeine intake, may affect sleep. Healthy sleep habits. Patient submitted HPI (if performed, immediately below): HPI Diet: increased calories, trying to gain weight, well hydrated, limiting caffeine Exercise: not much, active at work Sleep: ~12-16 hours, sometimes trouble falling asleep Problem Depression With Anxiety - Current medications include: none, has tried Lexapro and trazodone (slept too [...] She was counseled to discontinue tobacco/nicotine use. Depression Screen Positive: PHQ-2 score >= 3 or PHQ-9 score >= 9 PHQ-2 Total: 3 (01/10/2024 2:22 PM) PHQ-9 Total: 10 (01/10/2024 2:22 PM) DEPRESSION PLAN OF CARE Her depression screen was positive. She was given a prescription for an antidepressant, She was scheduled for a future appointment to do an additional evaluation, and Referral to Collaborative Care for follow-up This medical record reflects the history of [...] Day Substance and Sexual Activity Alcohol use: Never [...] for dizziness and headaches. Psychiatric/Behavioral: Positive for dysphoric mood and sleep disturbance. The patient is nervous/anxious. Objective PHYSICAL EXAM Vitals: 01/10/24 1423 BP: 100/60 Pulse: 78 Temp: 97.6 ??F (36.4 ??C) SpO2: 99% Weight: 48.1 kg (106 lb) Height: 5' 3 (1.6 m) BMI Readings from Last 3 Encounters: 01/10/24 18.78 kg/m?? 11/24/23 19.24 kg/m?? 09/29/23 19.30 kg/m?? Physical Exam Vitals and nursing note [...] Tendon Reflexes: Reflexes are normal and symmetric. Psychiatric: Mood and Affect: Mood is depressed. Assessment ASSESSMENT and PLAN: Problem List Items Addressed This Visit Other Depression with anxiety - Primary The patient's psychiatric symptoms, at this time, are not under control. Will change medications per orders. The patient denies suicidal plans. The patient understands the possibility that antidepressants can sometimes bring on suicidal thinking, especially in young adults, and wishes to proceed. The patient will report any change in suicidal thinking to us immediately or go to ER. The patient isasked to follow up with us if mood does not improve. Relevant Medications buPROPion HCL (WELLBUTRIN XL) 150 mg Extended Release 24 hour tablet Other Relevant Orders AMB REFERRAL TO PSYCHIATRY AMB REFERRAL TO [facility] KRISHNA RUSSO NEUROPSYCH PHARMACOGENETICS List of orders placed this encounter: Orders Placed This Encounter Krishna Russo Generic Referral to Psychiatry *[facility] buPROPion HCL (WELLBUTRIN XL) 150 mg Extended Release 24 hour tablet Patient Instructions Patient Instructions Continue counseling. Start Wellbutrin daily in AM. Recommend vaping cessation. Limit caffeine in diet. Stay hydrated. Psychiatry referral. Our scheduling department should be calling you to set up your referral. If you do not want to waitor you do not hear from them, you can contact them at [phone] or Toll Free at [phone]. They are open Wednesday-Wednesday 7:30am to 5pm. [facility] referral. Krishna Russo pharmacogenetics testing ordered. Your kit will be mailed to you. [email or web address] for more information and financial assistance. Looks like the test costs $295. Parts of this note were generated using medical dictation software, [employer]. Please excuse any typographical errors that may have occurred as a result of this. TALISHA PEOPLES ER ANALYST documented in this encounter Miscellaneous Notes * Assessment & Plan Note - Mell Strong FNP - 01/10/2024 3:11 PM DEALER ANALYST Associated Problem(s): Depression with anxiety The patient's psychiatric symptoms, at this time, are not under control. Will change medications per orders. The patient denies suicidal plans. The patient understands the possibility that antidepressants can sometimes bring on suicidal thinking, especially in young adults, and wishes to proceed. The patient will report any change in suicidal thinking to us immediately or go to ER. The patient isasked to follow up with us if mood does not improve. ER ANALYST * Patient Instructions - Mell Strong FNP - 01/10/2024 2:52 PM DEALER ANALYST Continue counseling. Start Wellbutrin daily in AM. Recommend vaping cessation. Limit caffeine in diet. Stay hydrated. Psychiatry referral. Our scheduling department should be calling you to set up your referral. If you do not want to waitor you do not hear from them, you can contact them at [phone] or Toll Free at [phone]. They are open Wednesday-Wednesday 7:30am to 5pm. [facility] Care referral. [employer] boat motor mechanic pharmacogenetics testing ordered. Your kit will be mailed to you. [email or web address] for more information and financial assistance. Looks like the test costs $295. ER ANALYST documented in this encounter Plan of Treatment Upcoming Encounters Date Type Department Care Team (Late st Contact Info) Description 12/04/2024 10:45 AM DEALER ANALYST Office Visit [facility] OBGYN [address] [place] [address] [place] [address] [address] [place] [address] 01/31/2025 2:30 PM DEALER ANALYST Office Visit [facility] OBGYN [address] [address] [place] [address] [place] [address] [address] [place] [address] Scheduled Referrals Name Type Priority Associated Diagnoses Order Schedule AMB REFERRAL TO PSYCHIATRY Outpatient Referral Routine Depression with anxiety Ordered: 01/10/2024 AMB REFERRAL TO [facility] Outpatient Referral Routine Depression with anxiety Ordered: 01/10/2024 documented as of this encounter Procedures Procedure Name Priority Date/Time Associated Diagnosis Comments [facility]IGHT [facility] NEUROPSYCH PHARMACOGENETICS Routine 03/15/2024 12:00 AM CDT Depression with anxiety documented in this encounter Results * [facility]UR[facility] PHARMACOGENETICS (03/15/2024 12:00 AM CDT) [facility] [email or web address] 03/15/2024 12:00 AM CDT [facility] Comment:[facility] link [email or web address] See PDF report 03/15/2024 12:00 AM CDT [facility] Reference Result Note Please review [facility] boat motor mechanic report for more information related to gene-drug interactions 03/15/2024 12:00 AM CDT [facility] Saliva specimen (specimen) 02/29/2024 Narrative This result has genomic variants that were not included in this document. Mell Strong FIRE CHIEF MOLECULAR ORD ERABLES [facility] [address], [address] [place] [address], [facility] [address] [facility] [address], [address] [place] [address] documented in this encounter Visit Diagnoses Diagnosis Depression with anxiety- Primary Dysthymic disorder documented in this encounter Additional Health Concerns Assessment Noted Time PHQ-9 Depression Total Score: 3 01/10/20 24 2:22 PM DEALER ANALYST documented as of this encounter Care Teams Quick Print Operator Relationship Specialty Start Date End Date Gadiel Gustafson MD [facility] [place] [address] PCP - General Internal Medicine 09/29/23 documented as of this encounter
--- OUTSIDE RECORDS SUMMARY | 2024-12-02 23:09 | XMS_ITS | Encounter Summary ---
Author Organization [facility] Address [address] Malik: Epic Prelude ADT [place] [address] Care Team Providers Care Nutritionists Name Role Phone Unavailable Primary Care Provider Unavailabl e Encounter Details Date Type Department Care Team (Latest Contact Info) Description 10/01/2022 Travel Social History Tobacco Use Types Packs/Day Years Used Date Smoking Tobacco: Never Smokeless Tobacco: Never Alcohol Use Standard Drinks/Week Comments Never 0 (1 standard drink = 0.6 oz pur e alcohol) Sex and Gender Information Value Date Recorded Sex Assigned at Not on file Gender Identity Not on file Sexual Orientation Not on file COVID-19 Exposure Response Date Recorded In the last 10 days, have yo u been in contact with someone who was confirmed or suspected to have Coronavirus/COVID-19? No / Unsure 10/01/2022 11:59 AM CDT documented as of this encounter Plan of Treatment Upcoming Encounters Date Type Department Care Team (Late st Contact Info) Description 12/04/2024 10:45 AM DICE SPOTTER Office Visit [facility] OBGYN [address] [place] [address] [place] [address] [place] [address] 01/31/2025 2:30 PM DICE SPOTTER Office Visit [facility] OBGYN [address] [place] [address] [place] [address] [place] [address] documented as of this encounter Visit Diagnoses Not on filedocumented in this encounter
--- OUTSIDE RECORDS SUMMARY | 2024-12-02 23:09 | XMS_ITS | Encounter Summary ---
Author Organization [facility] Address [address] [place] [address] Care Team Providers Care Baseball Glove Stuffer Name Role Phone Gadiel Gustafson MD Primary Care Provider [phone] Reason for Visit * Reason Onset Date Comments CoCM Psychiatrist Recommendations 02/17/2024 CoCM Psychiatrist Recommendations Encounter Details Date Type Department Care Team (Latest Contact Info) Description 02/17/2024 Patient Outreach [facility] Medicine [address] [address] Cecilia Gamez NP [address] [place] [phone] CoCM Psychiatrist Recommendations (CoCM Psychiatrist Recommendations) Social History Tobacco Use Types Packs/Day Years [...] * Telephone Encounter - Maddie Costello - 02/17/2024 2:26 PM CDT 02/17/2024 Collaborative PC Review: 6 This patient has been included in the psychiatric caseload review activities and consulted on as needed Patient's clinical history, symptoms, and medications reviewed for psychiatric consultation with Cecilia Gamez NP. Recommendations added to electronic health record. Kathrin Costello [facility] Collaborative Reclamation Kettle Tender [facility] Care [phone] * Telephone Encounter - Cecilia Gamez NP - 02/17/2024 2:23 PM CDT Collaborative Care Psychiatric Roustabout Pusher Review: Initial Referring Collaborative Care Provider: Mell Strong RECOMMENDATIONS: Medication: Recommend to increase the Wellbutrin to 300mg daily at this time to address her lack ofmotivation and energy level. Please call the patient to discuss recommendation and prescribe if thepatient is in agreement with the plan. . Labs/Monitoring: none Level of care: Collaborative care remains appropriate. Risk evaluation/safety assessment: no imminent safety concerns at this time. Pt reported has deniedbeing actively suicidal; pt has no reported acts of self-harm Therapeutic modalities: Supportive Psychotherapy, Brief CBT Below information acquired by collaborative mall plant caretaker: FERNANDEZ 7 most recent: 9 CSSRS: negative Days enrolled in CC: 38 DIAGNOSIS: Anxiety Disorder Target symptoms: Anxiety Symptoms: Feeling nervous or on edge, Worrying about many different things, Difficulty relaxing, Feeling restless or agitated, and Irritability Depressive Symptoms: Feelings of sadness, Crying spells, Sleeping too much, Feeling tired or low engery, Low appetite, and Irritability Current medications: Wellbutrin 150mg daily Adverse effects reported: Substance use: Patient states she drinks once every two weeks. Probably 4 shots Relevant medical history: Brief psychiatric history: Currently in treatment with a therapist Sees therapist weekly. Missed the last few weeks. Previous medication trials: Lexapro, patient states she does not remember any side effects. Safety: Denied SI/SIB/AVH/HI The above treatment considerations and suggestions are based on consultations with the patient's Collaborative Care treatment team and a review of information available in the patient's medical record. I have not personally examined the patient. Primary care provider was made aware of clinical recommendations. All recommendations should be implemented with consideration of the patient???s relevant prior history and current clinical status. Please feel free to call me with any questions about the care of this patient. Thank you, Cecilia Gamez PMHNP- Psychiatric Roustabout Pusher documented in this encounter Plan of Treatment Upcoming Encounters Date Type Department Care Team (Late st Contact Info) Description 12/04/2024 10:45 AM COMMUNICATIONS EQUIPMENT INSTALLER Office Visit [facility] OBGYN [address] [place] [address] [place] [address] [place] [address] 01/31/2025 2:30 PM COMMUNICATIONS EQUIPMENT INSTALLER Office Visit [facility] OBGYN [address] [place] [address] [place] [address] [place] [address] documented as of this encounter Visit Diagnoses Not on filedocumented in this encounter Additional Health Concerns Assessment Noted Time PHQ-9 Depression Total Score: 3 01/10/20 24 2:22 PM COMMUNICATIONS EQUIPMENT INSTALLER documented as of this encounter Care Teams Baseball Glove Stuffer Relationship Specialty Start Date End Date Gadiel Gustafson MD [address] [place] [address] PCP - General Internal Medicine 09/29/23 documented as of this encounter
--- OUTSIDE RECORDS SUMMARY | 2024-12-02 23:09 | XMS_ITS | Encounter Summary ---
Author Organization [facility] Address [address] [place] [address] Care Team Providers Care Police Artist Name Role Phone Gadiel Gustafson MD Primary Care Provider [phone] Encounter Details Date Type Department Care Team (Late st Contact Info) Description 12/26/2023 External Device Data STL ABSTRACTION Provider, Abstract [...] st Contact Info) Description 12/04/2024 10:45 AM SHIPPING CLERK CRATING Office Visit [facility] OBGYN [address] [place] [address] [place] [address] [place] [address] 01/31/2025 2:30 PM SHIPPING CLERK CRATING Office Visit [facility] OBGYN [address] [address] [address] [place] [address] [place] [address] [address] [place] [address] documented as of this encounter Visit Diagnoses Not on filedocumented in this encounter Additional Health Concerns Assessment Noted Time PHQ-9 Depression Total Score: 2 11/24/20 11:11 AM SHIPPING CLERK CRATING documented as of this encounter Care Teams Police Artist Relationship Specialty Start Date End Date Gadiel Gustafson MD [address] [place] [address] PCP - General Internal Medicine 09/29/23 documented as of this encounter
--- OUTSIDE RECORDS SUMMARY | 2024-12-02 23:09 | XMS_ITS | Encounter Summary ---
Author Organization [facility] Address [address] [facility] [address] [place] [address] Care Team Providers Care Eligibility Analyst Name Role Phone Unavailable Primary Care Provider Unavailabl e Reason for Visit * Reason Comments Sore Throat Pt stated she has th roat pain, cough, nasal drainage/congestion, loss of taste x 4 days.No otc medication taken Encounter Details Date Type Department Care Team (Late st Contact Info) Description 10/01/2022 12:00 PM CDT Office Visit [facility] [place] [address] [place] [phone] Zuleika Salcido, FACING MACHINE OPERATOR [address] [place] [phone] Bacterial infection (Primary Dx); Acute bacterial sinusitis; Contact with and (suspected) exposure to covid-19; Throat pain in adult Social History Tobacco Use Types Packs/Day Years Used Date Smoking Tobacco: Never Smokeless Tobacco: Never Tobacco Cessation:Counseling Given: No Alcohol Use Standard Drinks/Week Comments Never 0 [...] AM CDT documented as of this encounter Last Filed Vital Signs Vital Sign Reading Time Taken Comments Blood Pressure 115/75 10/01/2022 12:09 PM CDT Pulse 88 10/01/2022 12:09 PM CDT Temperature 37 ??C (98.6 ??F) 10/01/2022 12:09 PM CDT Respiratory Rate 18 10/01/2022 12:09 PM CDT Oxygen Saturation 98% 10/01/2022 12:09 PM CDT Inhaled Oxygen Concentration - - Weight 47.6 kg (105 lb) 10/01/2022 12:09 PM CDT Height 157.5 cm (5' 2 ) 10/01/2022 12:09 PM CDT Body Mass Index 19.2 10/01/2022 12:09 PM CDT documented in this encounter Progress Notes * Zuleika Guajardo FACING MACHINE OPERATOR - 10/01/2022 12:00 PM CDT Chief Complaint Patient presents with Sore Throat Pt stated she has throat pain, cough, nasal drainage/congestion, loss of taste x 4 days. No otc medication taken Current Outpatient Medications Medication Sig Dispense Refill amoxicillin-clavulanate (AUGMENTIN) 875-125 mg tablet Take 1 Tablet by mouth every 12 hours for 7 days. 14 Tablet 0 No current facility-administered medications for this visit. No Known Allergies Past Medical History: Diagnosis Date Patient denies medical problems Past Surgical History: Procedure Laterality Date PT DENIES RELEVANT SURGICAL HISTORY No family history on file. Social History Tobacco Use Smoking status: Never Smokeless tobacco: Never Substance Use Topics Alcohol use: Never SUBJECTIVE: Daiana Spencer is a 22 y.o. female who complains of congestion (orange-dark green last night and [place] green today) and sore throat for 5-6 days. Has been taking OTC's to help symptoms. ROS: There is no history of, chest pain, shortness of breath, and vomiting . OBJECTIVE: BP 115/75 (BP Location: Right arm, Patient Position (BP): Sitting, BP Cuff Size: Adult) Pulse 88 Temp 98.6 ??F (37 ??C) (Oral) Resp 18 Ht 5' 2 (1.575 m) Wt 47.6 kg (105 lb) LMP 09/07/2022 (Approximate) SpO2 98% BMI 19.20 kg/m?? Patient is conscious, alert, oriented, in no acute distress. Eyes: Clear, no discharge. Nose: Congested, red mucosa. No rhinorrhea. Ears: EAC's nl, TM's nl. No discharge. Sinuses: significant tenderness. Throat: Moderate oropharyngeal redness, no exudates. No lesions. + green PND Neck: supple, no adenopathy. Chest: Normal respiratory effort, clear to auscultation, no wheezes, rales or rhonchi. Cardiology: regular rate and rhythm. Skin: No rash. Results for orders placed or performed in visit on 10/01/22 POC COVID-19 ANTIGEN Result Value Ref Range COVID-19 ANTIGEN POC Presumptively Negative Presumptively Negative INTERNAL KIT QC POC Pass Pass KIT LOT NUMBER POC [id number] KIT EXP DATE POC [id number] POC RAPID STREP A ANTIGEN Result Value Ref Range RAPID STREP POC Negative Negative INTERNAL KIT QC POC Pass Pass KIT LOT NUMBER POC [id number] KIT EXP DATE POC 02/26/2023 READ METHOD POC Visual ASSESSMENT: ICD-10-CM ICD-9-CM 1. Bacterial infection A49.9 041.9 amoxicillin-clavulanate (AUGMENTIN) 875-125 mg tablet 2. Acute bacterial sinusitis J01.90 461.9 B96.89 3. Contact with and (suspected) exposure to covid-19 Z20.822 V01.79 POC COVID-19 ANTIGEN 4. Throat pain in adult R07.0 784.1 POC RAPID STREP A ANTIGEN PLAN: Orders Placed This Encounter POC COVID-19 ANTIGEN POC RAPID STREP A ANTIGEN amoxicillin-clavulanate (AUGMENTIN) 875-125 mg tablet Use OTC's as needed. Expected course outlined. Follow up with PCP as needed, fevers, lasts longer than 10-12 days, or if illness in general otherwise worsens. If any respiratory problems, go to Emergency room. Precautions discussed. An After Visit Summary was printed and given to the patient. ERSHIP GENERAL MANAGER documented in this encounter Miscellaneous Notes * Patient Instructions - Zuleika Guajardo NP - 10/01/2022 12:00 PM CDT Increase fluids. Use neti pot sinus irrigation. Increase humidity. Use sudafed as tolerated. May use warm compresses to face. Follow up with pcp prn Aware to complete full course of antibiotic. To continue otc medications. Discussed nasal saline rinses/neti pots. Discussed need to increase fluid intake. May use 1 teaspoon honey every 4 hours as needed for cough, encourage use of hot tea or hot water with honey. Cool mist humidifier in bedroom. Lots of water, rest and handwashing, no sharing cups or utensils. If symptoms worsen including but not limited to shortness of breath, chest pain and/or increasing pain please notify office or presentto Emergency Department documented in this encounter Plan of Treatment Upcoming Encounters Date Type Department Care Team (Late st Contact Info) Description 12/04/2024 10:45 AM DEALERSHIP GENERAL MANAGER Office Visit [facility] [address] [place] [address] [place] [address] [place] [address] 01/31/2025 2:30 PM DEALERSHIP GENERAL MANAGER Office Visit [facility] [address] [place] [address] [place] [address] [place] [address] documented as of this encounter Procedures Procedure Name Priority Date/Time Associated Diagnosis Comments POC COVID-19 ANTIGEN Routine 10/01/2022 12:29 PM CDT Contact with and (suspected) exposure to covid-19 POC RAPID STREP A ANTIGEN Routine 10/01/2022 12:29 PM CDT Throat pain in adult documented in this encounter Results * POC RAPID STREP A ANTIGEN (10/01/2022 12:29 PM CDT) [facility] RAPID STREP POC Negative Negative [facility] INTERNAL KIT QC POC Pass Pass [facility] KIT LOT NUMBER POC [id number] [facility] KIT EXP DATE POC 02/26/2023 [facility] READ METHOD POC Visual [facility] Upper Respiratory SPECIMEN FROM THROAT / Unknown 10/01/2022 12:29 PM CDT Sadie Owen WORKERS COMPENSATION EXAMINER POINT OF CARE TESTIN [facility] [place] CLIA# [id number] [address] [place] [address] * POC COVID-19 ANTIGEN (10/01/2022 12:29 PM CDT) COVID-19 ANTIGEN POC Presumptively Negative Presumptively Negative [facility] INTERNAL KIT QC POC Pass Pass [facility] KIT LOT NUMBER POC [id number] [facility] KIT EXP DATE POC [id number] [facility] Upper Respiratory 10/01/2022 12:29 PM CDT Sadie Owen WORKERS COMPENSATION EXAMINER POINT OF CARE TESTIN [facility] CLIA# [id number] [address] [place] [address] documented in this encounter Visit Diagnoses Diagnosis Bacterial infection- Primary Bacterial infection, unspecified, in conditions classified elsewhere and of unspecified site Acute bacterial sinusitis Acute sinusitis, unspecified Contact with and (suspected) exposure to covid-19 Throat pain in adult documented in this encounter
--- OUTSIDE RECORDS SUMMARY | 2024-12-02 23:09 | XMS_ITS | Encounter Summary ---
Author Organization [facility] Address [address] [place] [address] Care Team Providers Care Edger Hand Name Role Phone Gadiel Gustafson MD Primary Care Provider [phone] Reason for Visit * Reason Comments [facility] Encounter Details Date Type Department Care Team (Late st Contact Info) Description 02/08/2024 Patient Outreach [facility] [address] [place] [address] [facility] Care Social History Tobacco Use Types [...] as of this encounter Progress Notes * [facility] - 02/08/2024 7:58 PM CDT January 31, 2024 01/31/2024 0.67 Minutes -- Patient Contact 01/31/2024 2.00 Minutes -- Registry Management Primary Diagnosis: F43.23 - Adjustment disorder with mixed anxiety and depressed mood Date: 01/31/2024 Patient Name: Daiana Spencer Referring Collaborative Care Provider: Mell Strong Outreach Attempt # 1 Collaborative Conveyor Monitor attempted to reach patient by phone for follow-up behavioral health services. Patient was not available and Collaborative Conveyor Monitor . Collaborative Conveyor Monitor will continue with outreach attempts and remain available as needed. Kathrin Costello [facility] Collaborative Conveyor Monitor I 01/31/2024 2.00 Minutes -- Patient Related Correspondence 01/31/2024 5.00 Minutes -- Clinical Case Preparation February 08, 2024 02/08/2024 15.53 Minutes -- Patient Contact 02/08/2024 5.00 Minutes -- Clinical Case Preparation 02/08/2024 8.00 Minutes -- Registry Management Primary Diagnosis: F43.23 - Adjustment disorder with mixed anxiety and depressed mood [facility] Care ? 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 Patient does not report suicidal ideation or [...] reported Eating Patterns: None reported Sleeping Patterns: still struggling with increase sleep. Change to current stressors, if any: [facility] [place] [facility]. Patient reports some sadness in coming home and is struggling with motivation. Patient states she is waking up earlier than before but sometimes will go back to bed. Patient noticed some progress in that aspect of not sleeping as much. MEDICATIONS: Patient update regarding medications: Patient states she feels the medication is not working. PLAN/INTERVENTIONS Patient/guardian identifies the following targeted symptoms for treatment: decrease hours of sleep,find motivation and purpose, work through depression. Today's SMART Goal: Patient will decrease hours of sleep from 14 hours to 10 and will get out of the house for one activity not pertaining to work before next contact. Progress: Patient states she will continue to work on decreasing sleep from 14 hours - 10. Patient will continue taking meds as prescribed. Clinician utilized dialectic behavior therapy, summarizing, and active listening of to aid patient/guardian in decreasing symptoms of depression. Follow up plan: Follow up 02/15 BALDEV Pandey Collaborative Conveyor Monitor [facility] [phone] [facility] Clinician Saige February 16, 2024 02/16/2024 15.12 Minutes -- Patient Contact 02/16/2024 5.00 Minutes -- Clinical Case Preparation 02/16/2024 4.00 Minutes -- Registry Management Primary Diagnosis: F43.23 - Adjustment disorder with mixed anxiety and depressed mood Called patient to follow up on behavioral health goals and treatment progress. Patient reports the following symptom or stressors: Patient reports motivation remaining low. Patient reports medication does not seem to be working. Assisted patient with processing identified symptom/stressor by: using motivational interviewing. Collaborative Conveyor Monitor will follow up with patient 02/21 Clinician met with the patient via telepractice. Patient is aware that the contact is conducted viainteractive audio and consents to treatment in this way. Patient's identity was confirmed. Clinician verified the patient's physical location during the contact and local emergency contacts. Patient has been included in the caseload review activities and consulted on as needed. BALDEV Pandey [facility] [place] February 17, 2024 02/17/2024 6.00 Minutes -- Collaborative PC Review Primary Diagnosis: F43.23 - Adjustment disorder with mixed anxiety and depressed mood 4Collaborative PC Review: 6This patient has been included in the psychiatric caseload review activities and consulted on as neededPatient's clinical history, symptoms, and medications reviewed for psychiatric consultation with Cecilia Gamez NP. Recommendations added to electronic health record.Campbell [facility]eyst. [facility] hospitalative Conveyor Monitor [phone] [facility] [place] February 23, 2024 02/23/2024 2.00 Minutes -- Clinical Case Preparation 02/23/2024 2.00 Minutes -- Registry Management Primary Diagnosis: F43.23 - Adjustment disorder with mixed anxiety and depressed mood Clinician reviewed patient's chart to in order to add a preliminary diagnosis. A preliminary diagnosis was entered in [employer] based off the referral and problem list in electronic medical record. [facility]ige documented in this encounter Plan of Treatment Upcoming Encounters Date Type Department Care Team (Late st Contact Info) Description 12/04/2024 10:45 AM ON SITE SOIL EVALUATOR Office Visit [facility] OBGYN [address] [place] [address] [place] [address] [place] [address] 01/31/2025 2:30 PM ON SITE SOIL EVALUATOR Office Visit [facility] O[facility] [address] [place] [address] [place] [address] [place] [address] documented as of this encounter Visit Diagnoses Not on filedocumented in this encounter Additional Health Concerns Assessment Noted Time PHQ-9 Depression Total Score: 3 01/10/20 24 2:22 PM ON SITE SOIL EVALUATOR documented as of this encounter Care Teams Edger Hand Relationship Specialty Start Date End Date Gadiel Gustafson MD [address] [place] [address] PCP - General Internal Medicine 09/29/23 documented as of this encounter
--- OUTSIDE RECORDS SUMMARY | 2024-12-02 23:09 | XMS_ITS | Encounter Summary ---
Author Organization [facility] Address [address] [place] [address] Care Team Providers Care Road Mender Name Role Phone Gadiel Gustafson MD Primary Care Provider [phone] Encounter Details Date Type Department Care Team (Late st Contact Info) Description 12/24/2023 External Device Data STL ABSTRACTION Provider, Abstract [...] st Contact Info) Description 12/04/2024 10:45 AM HEALTHCARE ANALYST Office Visit [facility] O[facility]YN [address] [facility] [address] [place] [address] [place] [address] [place] [address] 01/31/2025 2:30 PM HEALTHCARE ANALYST Office Visit [facility] OBGYN [address] [place] [address] [place] [address] [place] [address] documented as of this encounter Visit Diagnoses Not on filedocumented in this encounter Additional Health Concerns Assessment Noted Time PHQ-9 Depression Total Score: 2 11/24/20 11:11 AM HEALTHCARE ANALYST documented as of this encounter Care Teams Road Mender Relationship Specialty Start Date End Date Gadiel Gustafson MD [address] [place] [address] PCP - General Internal Medicine 09/29/23 documented as of this encounter
--- OUTSIDE RECORDS SUMMARY | 2024-12-02 23:09 | XMS_ITS | Encounter Summary ---
Author Organization [facility] Address [address] [place] [address] Care Team Providers Care Disability Insurance Claim Examiner Name Role Phone Unavailable Primary Care Provider Unavailabl e Encounter Details Date Type Department Care Team (Late st Contact Info) Description 07/26/2023 Abstract [facility] Internal [facility] - [facility] [address] [place] [address] Cecilia Muñoz, OPAL [address] [place] [address] Social History Tobacco Use Types Packs/Day Years [...] st Contact Info) Description 12/04/2024 10:45 AM TIRE DESIGN ENGINEER Office Visit [facility] OBGYN [address] [place] [address] [place] [address] [place] [address] 01/31/2025 2:30 PM TIRE DESIGN ENGINEER Office Visit [facility] OBGYN [address] [place] [address] [place] [address] [facility] [address] [place] [address] documented as of this encounter Visit Diagnoses Not on filedocumented in this encounter
--- OUTSIDE RECORDS SUMMARY | 2024-12-02 23:09 | XMS_ITS | Encounter Summary ---
Author Organization [facility] Address [address] [place] [address] Care Team Providers Care Stockroom Attendant Name Role Phone Gadiel Gustafson MD Primary Care Provider [phone] Reason for Referral * Eval and Treat (Routine) - Closed Specialty Diagnoses / Procedures Referred By Ami irene Referred To Contact Obstetrics and Gynecology Diagnoses Encounter for well woman exam Procedures MO OFFICE/OUTPATIENT ESTABLISHED MOD MDM 30-39 MIN MO OFFICE/OUTPATIENT NEW MODERATE MDM 45-59 MINUTES Mell Strong FNP [address] [place] [address] [facility] Obgyn [address] [facility] [address] [address] [facility] [address] [place] [address] Referral ID Status Reason Start Date Expiration Date Visits Re quested Visits Authorized [id number] Closed 09/29/2023 09/28/2024 1 1 Reason for Visit * Reason Comments Establish Care Curious about blood work. In regards to vitamins. Would like to get an acne medication. No longer has uti symptoms, but has problems holding her bladder. Weird feeling on her right breast. Encounter Details Date Type Department Care Team ([facility] Contact Info) Description 09/29/2023 3:20 PM CDT Office Visit [facility] [address] [place] [address] Mell Strong, TALISHA [address] [facility] [place] [address] Routine general medical examination at a health care facility (Primary Dx); Acne, unspecified acne type; Chronic bilateral low back pain with left-sided sciatica; Vitamin D deficiency; Encounter for well woman exam Social History Tobacco Use Types Packs/Day Years Used Date Smoking Tobacco: Never Smokeless Tobacco: Never Tobacco Cessation:Counseling Given: Not Answered Alcohol Use Standard Drinks/Week Comments Never 0 (1 standard drink = 0.6 oz pur e alcohol) Sex and Gender Information Value Date Recorded Sex Assigned at Not on file Gender Identity Not on file Sexual Orientation Not on file documented as of this encounter Last Filed Vital Signs Vital Sign Reading Time Taken Comments Blood Pressure 100/60 09/29/2023 3:43 PM CDT Pulse 95 09/29/2023 3:43 PM CDT Temperature 36.4 ??C (97.6 ??F) 09/29/2023 3:43 PM CD T Respiratory Rate - - Oxygen Saturation 97% 09/29/2023 3:43 PM CDT Inhaled Oxygen Concentration - - Weight 47.9 kg (105 lb 8 oz) 09/29/2023 3:43 PM CDT Height 157.5 cm (5' 2 ) 09/29/2023 3:43 PM CDT Body Mass Index 19.3 09/29/2023 3:43 PM CDT documented in this encounter Progress Notes * Mell Strong, TALISHA - 09/29/2023 3:20 PM CDT Images from the original note were not included. HISTORY OF PRESENT ILLNESS Daiana Spencer, a 23 y.o. y.o. female presenting with a Chief Complaint of Chief Complaint [facility] Curious about blood work. In regards to vitamins. Would like to get an acne medication. No longer has uti symptoms, but has problems holding her bladder. Weird feeling on her right breast. Subjective HPI Daiana Ahmadi is a 23 y.o. female who presents to [facility] care. Was previously seeing no PCP in the last 4 years. Has seen neurologist, urologist, and neurosurgeon. Patient submitted HPI (if performed, immediately below): HPI Diet: ok , meal preps, healthy choices, drinks water Exercise: not much, active at work Sleep: reports trouble falling asleep and sleeping too long, gets ~12-16 hours of sleep Reports right breast firmness and dimpling of skin, 9 o'clock position Has had US of right breast ~2 years ago, did not find anything Problem Acne - Recent outbreaks?: yes - Location: cheeks, around lips - Current medications include: clindamycin gel 1% - Dermatology?: has seen in the past Chronic Bilateral Low Back Pain With Left-Sided Sciatica - Location: low back - Duration: 3 years - Known injury: yes, injured in the - Severity: 7 , 0/10 when resting - Sciatica/radiculopathy: yes, left leg - Symptoms of fever, chills, urinary symptoms, bowel symptoms, arm/leg weakness/numbness?: leg weakness bilaterally - Medications include: meloxicam, Flexeril - Non-pharmacological therapies tried: ice - Sees neurosurgeon Dr. Mcbride TOBACCO COUNSELING She was counseled to discontinue tobacco/nicotine use. This medical record reflects the history of present illness as obtained by myself in discussion with the patient. Patient Active Problem List Diagnosis Code Acne L70.9 Chronic bilateral low back pain with left-sided sciatica M54.42, G89.29 Current Outpatient Medications on File Prior to Visit Medication Sig Dispense Refill meloxicam (MOBIC) 7.5 mg tablet Take 7.5 mg by mouth daily. Once a month Cyclobenzaprine 7.5 mg Tablet Take 7.5 mg by mouth daily. No current facility-administered medications on file prior [...] fatigue, fever and unexpected weight change. HENT: Positive for congestion. Negative for hearing loss and sore throat. Eyes: Negative for visual disturbance. Respiratory: Negative for cough and shortness of [...] patient isnot nervous/anxious. Objective PHYSICAL EXAM Vitals: 09/29/23 1543 BP: 100/60 Pulse: 95 Temp: 97.6 ??F (36.4 ??C) SpO2: 97% Weight: 47.9 kg (105 lb 8 oz) Height: 5' 2 (1.575 m) BMI Readings from Last 3 Encounters: 09/29/23 19.30 kg/m?? 10/01/22 19.20 kg/m?? Physical [...] Breath sounds: Normal breath sounds. No wheezing. Chest: Comments: Firmness of right breast 10 o'clock position near nipple, 2 dimpled areas (look like small scars) Abdominal: Palpations: Abdomen is soft. Musculoskeletal: General: Normal range of motion. Skin: General: Skin is warm and dry. Neurological: Mental Status: She is alert and oriented to person, place, and time. Deep Tendon Reflexes: Reflexes are normal and symmetric. Assessment ASSESSMENT and PLAN: Problem List Items Addressed This Visit Integumentary Acne At this time the patient's acne appears stable. Continue current treatment. The patient will reportnew flares or new symptoms from medications. Routine blood work for oral medications if indicated, see orders. Musculoskeletal Chronic bilateral low back pain with left-sided sciatica The patient's pain is not controlled. Previous imaging reviewed (if available). Medication changes per orders. Exercise encouraged. If no improvement with conservative measures, will refer for additional imaging and / or physical therapy. If this fails, refer to spinal surgeon or pain management for evaluation. Relevant Medications meloxicam (MOBIC) 7.5 mg tablet Other Visit Diagnoses Routine general medical examination at a health care facility - Primary Relevant Orders CBC WITH DIFFERENTIAL COMPREHENSIVE METABOLIC PANEL TSH REFLEXIVE LIPID PANEL Vitamin D deficiency Relevant Orders VITAMIN D 25 HYDROXY Encounter for well woman exam Relevant Orders AMB REFERRAL TO WAREHOUSE DISTRIBUTION SPECIALIST Health maintenance: Last Pap smear has never had one. WAREHOUSE DISTRIBUTION SPECIALIST referral. Flu shot yearly, advised every fall/winter, unless contraindication. Deferred. Tetanus shot every 10 years. None on file. Statesshe has had this. Recommended patient to always wear seat belts and to avoid texting and driving. Gardasil, states she has had this. Lipid panel every 5 years, or more frequently depending on risk factors. List of orders placed this encounter: Orders Placed This Encounter VITAMIN D 25 HYDROXY (Chemistry) CBC WITH DIFFERENTIAL COMPREHENSIVE METABOLIC PANEL TSH REFLEXIVE LIPID PANEL *Kelsey Olivera MD ([facility]) meloxicam (MOBIC) 7.5 mg tablet Cyclobenzaprine 7.5 mg Tablet clindamycin phosphate (CLEOCIN T) 1 % Gel Patient Instructions Patient Instructions Continue current medications. Refilled clindamycin gel. Get fasting blood work. Recommend [facility]. We'll call you with results. Continue healthy diet and exercise. Referral for WAREHOUSE DISTRIBUTION SPECIALIST for well woman exam. Our scheduling department should be calling you to set up your referral. If you do not want to waitor you do not hear from them, you can contact them at [phone] or Toll Free at [phone]. They are open Wednesday-Wednesday 7:30am to 5pm. Parts of this note were generated using medical dictation software, [employer]. Please excuse any typographical errors that may have occurred as a result of this. TALISHA PEOPLES documented in this encounter Miscellaneous Notes * Result Encounter Note - Mell Strong FNP - 11/25/2023 8:02 AM DOG BOARDER Contact patient regarding result. Blood counts, electrolytes, kidney, liver, and thyroid testing normal. Vitamin B12 and folate normal. Vitamin D slightly low at 29. We like this to be 30-100. This may be contributing to your fatigue. I recommend adding vitamin D supplement 2,000 IU daily. LDL cholesterol slightly elevated. Recommend low fat diet and exercise. We will monitor labs. BOARDER * Assessment & Plan Note - Mell Strong FNP - 09/29/2023 4:13 PM CDT Associated Problem(s): Chronic bilateral low back pain with left-sided sciatica The patient's pain is not controlled. Previous imaging reviewed (if available). Medication changes per orders. Exercise encouraged. If no improvement with conservative measures, will refer for additional imaging and / or physical therapy. If this fails, refer to spinal surgeon or pain management for evaluation. * Assessment & Plan Note - Mell Strong FNP - 09/29/2023 4:13 PM CDT Associated Problem(s): Acne At this time the patient's acne appears stable. Continue current treatment. The patient will reportnew flares or new symptoms from medications. Routine blood work for oral medications if indicated, see orders. * Patient Instructions - Mell Strong FNP - 09/29/2023 4:04 PM CDT Continue current medications. Refilled clindamycin gel. Get fasting blood work. Recommend [facility]. We'll call you with results. Continue healthy diet and exercise. Referral for WAREHOUSE DISTRIBUTION SPECIALIST for well woman exam. Our scheduling department should be calling you to set up your referral. If you do not want to waitor you do not hear from them, you can contact them at [phone] or Toll Free at [phone]. They are open Wednesday-Wednesday 7:30am to 5pm. documented in this encounter Plan of Treatment Upcoming Encounters Date Type Department Care Team (Late st Contact Info) Description 12/04/2024 10:45 AM DOG BOARDER Office Visit [facility] OBGYN [address] [place] [address] [place] [address] [place] [address] 01/31/2025 2:30 PM DOG BOARDER Office Visit [facility] OBGYN [address] [place] [address] [place] [address] [place] [address] Scheduled Referrals Name Type Priority Associated Diagnoses Orde r Schedule AMB REFERRAL TO WAREHOUSE DISTRIBUTION SPECIALIST Outpatient Referral Routine Encounter for well woman exam Ordered: 09/29/2023 documented as of this encounter Procedures Procedure Name Priority Date/Time Associated Diagnosis Comments TSH REFLEXIVE Routine 11/24/2023 12:04 PM DOG BOARDER Routine general medical examination at a [facility] care facility CBC WITH DIFFERENTIAL Routine 11/24/2023 12:04 PM DOG BOARDER Routine general medical examination at a [facility] care facility VITAMIN D 25 HYDROXY Routine 11/24/2023 12:04 PM DOG BOARDER Vitamin D deficiency LIPID PANEL Routine 11/24/2023 12:04 PM DOG BOARDER Routine general medical examination at a health care facility COMPREHENSIVE METABOLIC PANEL Routine 11/24/2023 12:04 PM DOG BOARDER Routine general medical examination at a [facility] care facility documented in this encounter Results * (ABNORMAL) LIPID PANEL (11/24/2023 12:04 PM DOG BOARDER) CHOLESTEROL 185 <200 mg/dL [facility]an [facility] HDL 61 > OR = 50 mg/dL SNADECJoan [facility] TRIGLYCERIDE 80 <150 mg/dL Latha Ankit Vogt LDL CALCULATED 107(H) mg/dL (calc) Latha BuyWithMeJoan Vogt Comment: Reference range: <100 Desirable range <100 mg/dL for primary prevention; ?? <70 mg/dL for patients with CHD or diabetic patients with > or = 2 CHD risk factors. LDL-C is now calculated using the Arti calculation, which is a validated novel method providing better accuracy than the Friedewald equation in the estimation of LDL-C. Kleber SS et al. DIOMEDES. 2013;310(02): 4312-0046 (http://education.[employer]/faq/TWX606) CHOL/HDL RATIO 3.0 <5.0 (calc) Latha Vogt TOTAL NON-HDL CHOL(LDL+VLDL) 124 <130 mg/dL (calc) SNADECJoan Vog[facility] Comment: For patients with diabetes plus 1 major ASCVD risk factor, treating to a non-HDL-C goal of <100 mg/dL (LDL-C of <70 mg/dL) is considered a therapeutic option. Test Performed at: [place] [address] [address] ??[phone] FinaSergey Da Silva Blood 11/24/2023 12:0 4 PM DOG BOARDER 11/24/2023 12:04 PM DOG BOARDER Mell Strong [facility] CHEMISTRY ORD ERABLES [facility] [phone] [place] [address] [address] [place] [phone] * TSH REFLEXIVE (11/24/2023 12:04 PM DOG BOARDER) Pathologist [facility] TSH 1.30 mIU/L SNADECMamadou nexa Comment: ?Reference Range ?> or = 20 Years ??0.40-4.50 ? Ranges ?First trimester ?0.26-2.66 ?Second trimester ?? 0.55-2.73 ?Third trimester ?0.43-2.91 Test Performed at: [address] ??[phone] Angelia Da Silva MD Blood 11/24/2023 12:0 4 PM DOG BOARDER 11/24/2023 12:04 PM DOG BOARDER Mell Strong [facility] CHEMISTRY ORD ERABLES Performing Organization Address City/State/[facility] Co de Phone Number [facility] [phone] [address] * COMPREHENSIVE METABOLIC PANEL (11/24/2023 12:04 PM DOG BOARDER) GLUCOSE 83 65 - 99 mg/dL SNADEC-Tahmina Vogt Comment: ? Fasting reference interval BUN 10 7 - 25 mg/dL So Protect MeS maria victoria Vogt CREATININE 0.86 0.50 - 0.96 mg/dL SNADEC-S maria victoria Vogt GFR 99 > OR = 60 mL/min/1. 73m2 SNADEC-Tahmina Vog[facility] BUN/CREAT RATIO SEE NOTE: 6 (calc) Latha BuyWithMe-Tahmina Vogt Comment: ?? Not Reported: BUN and Creatinine are within ?? reference range. ? SODIUM 137 135 - 146 mmol/L SNADEC-S maria victoria Vogt POTASSIUM 3.9 3.5 - 5.3 mmol/L SNADEC-S maria victoria Vogt CHLORIDE 103 98 - 110 mmol/L SNADEC-S maria victoria Vogt CO2 27 20 - 32 mmol/L SNADEC-S maria victoria Vogt CALCIUM 9.5 8.6 - 10.2 mg/dL SNADEC-S maria victoria Vogt TOTAL PROTEIN 7.6 6.1 - 8.1 g/dL So Protect MeS maria victoria Vogt ALBUMIN 4.5 3.6 - 5.1 g/dL [facility] maria victoria Vogt GLOBULIN 3.1 1.9 - 3.7 g/dL (calc) Rust Yoshi-Tahmina Vogt ALBUMIN/GLOBULIN RATIO 1.5 1.0 - 2.5 (calc) Rust YoshiS maria victoria Vogt BILIRUBIN TOTAL 0.7 0.2 - 1.2 mg/dL Rust YoshiTahmina Vogt ALKALINE PHOSPHATASE 44 31 - 125 U/L [facility] maria victoria Vogt AST 12 10 - 30 U/L [facility] maria victoria Vogt ALT 9 6 - 29 U/L [facility] maria victoria Vogt Comment: FASTING:YES FASTING: YES Test Performed at: [place] [address] [place], [place] ??[address] FinaEzraPaula Marianna Da Silva Blood 11/24/2023 12:0 4 PM DOG BOARDER 11/24/2023 12:04 PM DOG BOARDER Mell Strong FIELD COORDINATOR CHEMISTRY ORD ERABLES [facility] [phone] [place] [address] [place] [address] * CBC WITH DIFFERENTIAL (11/24/2023 12:04 PM DOG BOARDER) WBC 3.8 3.8 - 10.8 Thousand/u L Rust YoshiTahmina Vogt RBC 4.28 3.80 - 5.10 Million/uL Rust YoshiTahmina Vogt HEMOGLOBIN 12.7 11.7 - 15.5 g/dL Rust YoshiTahmina Vogt HEMATOCRIT 39.0 35.0 - 45.0 % Rust YoshiTahmina Vogt MCV 91.1 80.0 - 100.0 fL Rust YoshiTahmina Vogt MCH 29.7 27.0 - 33.0 pg Rust YoshiTahmina Vogt MCHC 32.6 32.0 - 36.0 g/dL Rust YoshiTahmina Vogt RDW 12.0 11.0 - 15.0 % [facility] YoshiS maria victoria Vogt PLATELETS 289 140 - 400 Thousand/u L Rust YoshiTahmina Vogt MPV 10.6 7.5 - 12.5 fL Rust YoshiTahmina Vogt NEUTROPHIL ABSOLUTE 2,234 1,500 - 7,800 cells/uL Latha Vogt LYMPHOCYTE ABSOLUTE 1,064 850 - 3,900 cells/uL Latha Vogt MONOCYTE ABSOLUTE 342 200 - 950 cells/uL Latha Vogt EOSINOPHIL ABSOLUTE 129 15 - 500 cells/uL Latha Vogt BASOPHILS ABSOLUTE 30 0 - 200 cells/uL Latha Vogt NEUTROPHIL 58.8 % Latha Vogt LYMPHOCYTES 28.0 % Latha Vogt MONOCYTE 9.0 % Latha Vogt EOSINOPHILS 3.4 % Latha Vogt BASOPHILS 0.8 % Latha Belle-Tahmina Vogt Comment: FASTING:YES FASTING: YES Test Performed at: [place] [address] [place] ??[phone] FinaEzraPaula Cabral Avinash Blood 11/24/2023 12:0 4 PM DOG BOARDER 11/24/2023 12:04 PM DOG BOARDER Mell JACOBSP HEMATOLOGY OR DERABLES [facility] [phone] [place] [address] [place] [address] * (ABNORMAL) VITAMIN D 25 HYDROXY (11/24/2023 12:04 PM DOG BOARDER) VITAMIN D, 25 OH, TOTAL 29(L) 30 - 100 ng/mL SNADEC-L enexa Comment: Vitamin D Status ? 25-OH Vitamin D: Deficiency: ?<20 ng/mL Insufficiency: ? 20 - 29 ng/mL Optimal: ? > or = 30 ng/mL For 25-OH Vitamin D testing on patients on D2-supplementation and patients for whom quantitation of D2 and D3 fractions is required, the QuestAssureD(TM) 25-OH VIT D, (D2,D3), LC/MS/MS is recommended: order code 92532 (patients >2yrs). See Note 1 Note 1 For additional information, please refer to http://education.[employer] Connect/faq/LKO943 (This link is being provided for informational/ educational purposes only.) FASTING:YES FASTING: YES Test Performed at: [facility] [place] [address] [place], [place] ??[phone] Angelia Da Silva MD Blood 11/24/2023 12:0 4 PM DOG BOARDER 11/24/2023 12:04 PM DOG BOARDER Mell Strong FIELD COORDINATOR CHEMISTRY ORD ERABLES [facility] [phone] [facility] [address] [place] [address] documented in this encounter Visit Diagnoses Diagnosis Routine general medical examination at a health care facility- Primary Acne, unspecified acne type Chronic bilateral low back pain with left-sided sciatica Vitamin D deficiency Unspecified vitamin D deficiency Encounter for well woman exam documented in this encounter Additional Health Concerns Assessment Noted Time PHQ-9 Depression Total Score: 3 09/29/20 23 3:42 PM CDT documented as of this encounter Care Teams Stockroom Attendant Relationship Specialty Start Date End Date Gadiel Gustafson MD [address] [place] [address] PCP - General Internal Medicine 09/29/23 documented as of this encounter
--- OUTSIDE RECORDS SUMMARY | 2024-12-02 23:09 | XMS_ITS | Encounter Summary ---
Author Organization [facility] Address [address] [place] [address] Care Team Providers Care Hot Die Press Operator Name Role Phone Gadiel Gustafson MD Primary Care Provider [phone] Reason for Visit * Reason Onset Date Comments [facility] 01/10/2024 Encounter Details Date Type Department Care Team (Latest Contact Info) Description 01/10/2024 Patient Outreach [facility] [address] [facility] [place] [address] Graciela Dempsey [facility] Social History Tobacco Use Types Packs/Day [...] encounter Miscellaneous Notes * Telephone Encounter - Graciela Dempsey - 01/10/2024 4:00 PM CST Patient Name:Daiana Spencer Date: 01/10/2024 Referring Collaborative Care Provider: Mell Strong Referral comments from provider, if any: Depression with anxiety Patient comments, if any: Difficulty sleeping. PCP started a medication at the appointment today [facility] staff successfully connected with patient, introduced role and explained the services offered by the care team. Patient was engaged with open ended questions, active listening, and motivational interviewing to gather pertinent information related to presenting symptoms. Spiritual Screening Recently have things negatively changed in your life as it relates to loss in meaning, purpose, andjoy? Yes Are you struggling to find meaningful connections with others or God? No Are you currently grieving a recent loss/? {No Do you feel the need for additional support AND open to having a [facility] Spiritual Care Provider reaching out to you? No [facility] Care steam heating installer provided the patient with an overview of the collaborative care program, established treatment expectations and answered questions related to enrollment. Insurance: Patient confirmed has been informed about billing and potential co- pays, deductibles andcoinsurances where applicable. Patient was provided with billing codes 09791, [id number], [id number], and 02867 for Collaborative Care. Patient gave verbal consent for services and was in agreement to be scheduled with a Collaborative Paintings Restorer (CCC) for continued engagement and skill development to decrease presenting symptoms.Patient was in agreement to be scheduled with Kathrin Costello on Jan 24, 2024 at 2:00 PM. Patient was able to enroll in video appointments. Patient was willing to schedule follow up appointments. Their follow up appointment is scheduled for Jan 31, 2024 at 2:00 PM. Patient's preferred appointment times have been added to Engagement Center. Patient preferred language is Malian. Patient Has Opted in for SMS reminders. Created episode in Epic: Yes Patient Contact: 9.55 minutes Registry Management: 2.00 minutes Graciela Dempsey RAL MAINTENANCE ENGINEER documented in this encounter Plan of Treatment Upcoming Encounters Date Type Department Care Team (Late st Contact Info) Description 12/04/2024 10:45 AM GENERAL MAINTENANCE ENGINEER Office Visit [facility] OBGYN [address] [facility] [address] [place] [address] [place] [address] [place] [address] 01/31/2025 2:30 PM GENERAL MAINTENANCE ENGINEER Office Visit [facility] OBGYN [address] [place] [address] [place] [address] [address] [place] [address] documented as of this encounter Visit Diagnoses Not on filedocumented in this encounter Additional Health Concerns Assessment Noted Time PHQ-9 Depression Total Score: 3 01/10/20 24 2:22 PM GENERAL MAINTENANCE ENGINEER documented as of this encounter Care Teams Hot Die Press Operator Relationship Specialty Start Date End Date Gadiel Gustafson MD [address] [place] [address] PCP - General Internal Medicine 09/29/23 documented as of this encounter
--- OUTSIDE RECORDS SUMMARY | 2024-12-02 23:09 | XMS_ITS | Encounter Summary ---
Author Organization [facility] Address [address] [place] [address] Care Team Providers Care Curb Attendant Name Role Phone Gadiel Gustafson MD Primary Care Provider [phone] Reason for Visit * Reason Onset Date Comments Medication Review 02/17/2024 Encounter Details Date Type Department Care Team (Late st Contact Info) Description 02/17/2024 Telephone [facility] Primary Care - [address] [place] [address] Gadiel Gustafson MD [address] [place] [address] Medication Review Social History Tobacco Use Types Packs/Day Years [...] * Telephone Encounter - Mariela Osborne - 02/17/2024 3:45 PM CDT Left message for patient to ask if she would like to increase her wellbutrin to 300 mg daily as suggested by the V BELT COVERER at [facility]. * Telephone Encounter - Mariela Osborne - 02/17/2024 3:44 PM CDT I saw the note from [facility]. The nurse practitioner suggests increasing your Wellbutrin XL to 300mg daily. Would you be interested in increasing this medication? Please let me know. Regarding: No message from patient ----- Message from TALISHA Payan sent at 02/17/2024 3:39 PM CDT ----- This encounter does not contain a message from the patient. documented in this encounter Plan of Treatment Upcoming Encounters Date Type Department Care Team (Late st Contact Info) Description 12/04/2024 10:45 AM SOFTWARE CONTROLS ENGINEER Office Visit [facility] OBGYN [address], [place] [address] [place] [address] [address] 01/31/2025 2:30 PM SOFTWARE CONTROLS ENGINEER Office Visit [facility] OBGYN [address] [place] [address] [place] [address] [place] [address] documented as of this encounter Visit Diagnoses Not on filedocumented in this encounter Additional Health Concerns Assessment Noted Time PHQ-9 Depression Total Score: 3 01/10/20 24 2:22 PM SOFTWARE CONTROLS ENGINEER documented as of this encounter Care Teams Curb Attendant Relationship Specialty Start Date End Date Gadiel Gustafson MD [address] [place] [address] PCP - General Internal Medicine 09/29/23 documented as of this encounter
--- OUTSIDE RECORDS SUMMARY | 2024-12-02 23:09 | XMS_ITS | Encounter Summary ---
Author Organization [facility] Address [address] [place] [address] Care Team Providers Care Top Closer Name Role Phone Gadiel Gustafson MD Primary Care Provider [phone] Encounter Details Date Type Department Care Team (Late st Contact Info) Description 11/10/2023 External Device Data STL ABSTRACTION Provider, Abstract [...] st Contact Info) Description 12/04/2024 10:45 AM SPRAY MIXER Office Visit [facility] OBGYN [address] [facility] [address] [place] [address] [place] [address] [place] [address] 01/31/2025 2:30 PM SPRAY MIXER Office Visit [facility] OBGYN [address] [place] [address] [place] [address] [place] [address] documented as of this encounter Visit Diagnoses Not on filedocumented in this encounter Additional Health Concerns Assessment Noted Time PHQ-9 Depression Total Score: 3 09/29/20 3:42 PM CDT documented as of this encounter Care Teams Top Closer Relationship Specialty Start Date End Date Gadiel Gustafson MD [address] [place] [address] PCP - General Internal Medicine 09/29/23 documented as of this encounter
--- OUTSIDE RECORDS SUMMARY | 2024-12-02 23:09 | XMS_ITS | Encounter Summary ---
Author Organization [facility] Address [address] [place] [address] Care Team Providers Care Nursing Consultant Name Role Phone Gadiel Gustafson MD Primary Care Provider Encounter Details Date Type Department Care Team (Late st Contact Info) Description 12/29/2023 External Device Data STL ABSTRACTION Provider, Abstract [...] st Contact Info) Description 12/04/2024 10:45 AM EVENT SECURITY OFFICER Office Visit [facility] OBGYN [address] [facility] [address] [place] [address] [place] [address] [place] [address] 01/31/2025 2:30 PM EVENT SECURITY OFFICER Office Visit [facility] OBGYN [address] [place] [address] [place] [address] [place] [address] documented as of this encounter Visit Diagnoses Not on filedocumented in this encounter Additional Health Concerns Assessment Noted Time PHQ-9 Depression Total Score: 2 11/24/20 11:11 AM EVENT SECURITY OFFICER documented as of this encounter Care Teams Nursing Consultant Relationship Specialty Start Date End Date Gadiel Gustafson MD [address] [place] [address] PCP - General Internal Medicine 09/29/23 documented as of this encounter
--- OUTSIDE RECORDS SUMMARY | 2024-12-02 23:09 | XMS_ITS | Encounter Summary ---
Author Organization [facility] Address [address] [place] [address] Care Team Providers Care Field Care Coordinator Name Role Phone Gadiel Gustafson MD Primary Care Provider [phone] Reason for Visit * Reason Comments Establish Care Well Woman Exam * Eval and Treat (Routine) - Closed Specialty Diagnoses / Procedures Referred By Contac t Referred To Contact Obstetrics and Gynecology Diagnoses Encounter for well woman exam Procedures WA OFFICE/OUTPATIENT ESTABLISHED MOD MDM 30-39 MIN WA OFFICE/OUTPATIENT NEW MODERATE MDM 45-59 MINUTES Mell Strong FNP [address] [place] [address] [facility] Obgyn [address] [place] [address] Referral ID Status Reason Start Date Expiration Date Visits Re quested Visits Authorized [id number] Closed 09/29/2023 09/28/2024 1 1 Encounter Details Date Type Department Care Team (Late st Contact Info) Description 01/26/2024 2:30 PM EXCHANGE CLERK Office Visit [facility] OBGYN [address] [place] [address] [place] [address] [place] [address] Well female exam with routine gynecological exam (Primary Dx); Cervical cancer screening; Routine screening for STI (sexually transmitted infection); OAB (overactive bladder) Social History Tobacco Use Types Packs/Day Years [...] Sign Reading Time Taken Comments Blood Pressure 102/70 01/26/2024 2:29 PM EXCHANGE CLERK Pulse - - Temperature - - Respiratory Rate - - Oxygen Saturation - - Inhaled Oxygen Concentration - - Weight 48.7 kg (107 lb 6.4 oz) 01/26/2024 2:29 P M EXCHANGE CLERK Height - - Body Mass Index 19.03 01/10/2024 2:23 PM EXCHANGE CLERK documented in this encounter Progress Notes * Kelsey Olivera MD - 01/26/2024 2:51 PM CST Well Woman Exam Chief Complaint(s): Well woman (age 21-29) HPI: Daiana Spencer is a 23 y.o. here for an annual well woman examination. MENSES: regular q month, lasts 7 days, Patient's last menstrual period was 12/24/2023 (exact date). FAMILY PLANNING: No method PAP: Last Pap: None Hx of abnormals: No SEXUAL ACTIVITY/STI SCREENING: Sexually active: Yes Would like STI screening today: Yes BREAST HEALTH: She has no breast complaints today. IMMUNIZATIONS: Patient has completed HPV vaccine series: Yes OTHER: Has history of OAB. Saw uro but couldn't tolerate cysto. Was on medication for a while but stopped. Interested in therapy again. 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 - Patient's last menstrual period was 12/24/2023 (exact date). 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 30 Tablet 3 meloxicam (MOBIC) 7.5 mg tablet Take 7.5 mg by mouth daily. Once a month Cyclobenzaprine 7.5 mg Tablet Take 7.5 mg by mouth daily. clindamycin phosphate (CLEOCIN T) 1 % Gel Apply to affected area 2 times daily. 30 Gram 3 No current facility-administered medications on file prior to visit. No Known Allergies Family History Problem Relation Name Age of Onset Healthy Father Healthy Mother Ovarian Cancer Mother 37 had a full hysterectomy Healthy Sister Healthy Brother Breast Cancer Neg Hx Colon Cancer Neg Hx Uterine Cancer Neg Hx Social History Tobacco Use Smoking status: Never Smokeless tobacco: Never Vaping Use Vaping status: Every Day Substance Use Topics Alcohol use: Yes Drug use: Never TOBACCO COUNSELING She is not a tobacco/nicotine user. Review of Systems: Constitutional: Denies issues Psych: +anxiety/depression HEENT: Denies issues Respiratory: Denies issues Cardiovascular: Denies issues Gastrointestinal: Denies abdominal pain Genitourinary: + urinary incontinence Breast: Denies breast masses, mastalgia, galactorrhea Endocrine: Denies issues Examination: Vitals: 01/26/24 1429 BP: 102/70 Weight: 48.7 kg (107 lb 6.4 oz) Body mass index is 19.03 kg/m??. Constitutional: Well developed, NAD. Skin: No rash, good tugor HEENT: Normocephalic, atraumatic. Breasts : Normal appearance, no masses or lumps palpated, nontender, no nipple discharge, no skin changes, no axillary lymphadenopathy. Heart: Well perfused peripherally Lungs: Non-labored respirations Abdomen: Soft, Nontender, nondistended Extremities: No clubbing, cyanosis, or edema.. Psychiatric Affect appropriate, normal speech and attention. 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 - Urethra: meatus normal. - Vagina: normal, no lesions or abnormal discharge. - Cervix: normal appearance, no lesions, discharge or bleeding. - Uterus: normal size, shape and consistency, normal mobility, nontender. - Adnexa: no masses or tenderness bilaterally. - Cul-de-sac: normal. Assessment: 23 y.o. presenting for WWE. Plan: Problem List Items Addressed This Visit None Visit Diagnoses Well female exam with routine gynecological exam - Primary Cervical cancer screening Relevant Orders CERV/VAG CYTO AGE BASED SCREEN PAP W CT/NG, TRICH Routine screening for STI (sexually transmitted infection) Relevant Orders CERV/VAG CYTO AGE BASED SCREEN PAP W CT/NG, TRICH OAB (overactive bladder) BREAST HEALTH: - Clinical breast exam within normal limits. - Recommend routine screening with annual clinical breast exam. - Self breast awareness encouraged PELVIC HEALTH: - Exam normal. - Pap test done today The recommendation for routine Pap tests for early detection and prevention of cervical cancer werediscussed with the patient - STI screening performed: Yes . - HPV vaccine series completed MENSES: - Patient has no menstrual issues. FAMILY PLANNING: - No methods, happy with this OAB: - The etiology and management of urge incontinence was discussed with the patient. The first line treatment for urge predominant mixed urinary incontinence being more conservative in nature, including elimination of bladder irritants, increase in water intake (50-70 oz daily), bladder training, and physical therapy. We also discussed potential medication management in the future. She declines therapy and medication for now. Will let me know if no improvement. Next Appointment: 1 year or PRN ANGE CLERK documented in this encounter Plan of Treatment Upcoming Encounters Date Type Department Care Team (Late st Contact Info) Description 12/04/2024 10:45 AM EXCHANGE CLERK Office Visit [facility] OBGYN [address] [place] [address] [place] [address] [place] [address] 01/31/2025 2:30 PM EXCHANGE CLERK Office Visit [facility] OBGYN [address] [place] [address] [place] [address] [place] [address] documented as of this encounter Procedures Procedure Name Priority Date/Time Associated Diagnosis Comments CERV/VAG CYTO AGE BASED SCREEN PAP W CT/NG, TRICH Routine 01/26/2024 3:11 PM EXCHANGE CLERK Cervical cancer screening Routine screening for STI (sexually transmitted infection) documented in this encounter Results * CERV/VAG CYTO AGE BASED SCREEN PAP W CT/NG, TRICH (01/26/2024 3:11 PM EXCHANGE CLERK) COMMENT (PAP): [facility] Comment: This order for age-based cervical cancer and STI screening follows ACOG guidelines(PB 168, 140, ZBH992). See individual assays for performing site location. CLINICAL INFORMATION [facility] [place] Comment:None given LAST MENSTRUAL PERIOD [facility] Comment:12/24/2023 PREV PAP: [facility] Comment:NONE GIVEN PREV BX: [facility] Comment:NONE GIVEN SOURCE [facility] [place] Comment:Endocervix ADEQUACY: [facility] Comment: Satisfactory for evaluation. Endocervical/transformation zone component present. PAP INTERP [facility] Comment: Cytology Results: Negative for intraepithelial lesion or malignancy. COMMENT (PAP TEST) [facility] [place] Comment: This Pap test has been evaluated with computer assisted technology. DIRECTOR OF TRAINING: [facility] [place] Comment: LMT, CT(ASCP) CT screening location: [place] [address] [place] [address] EXPLANATORY NOTE [facility] [place] Comment: EXPLANATORY NOTE: The Pap is a [...] C TRAC RNA NOT DETECTED NOT DETECTED [facility] [place] N.GONORRHOEAE RNA, TMA NOT DETECTED NOT DETECTED [facility] [place] COMMENT INFECTIOUS DISEASE [facility] [place] Comment: The analytical performance characteristics of this assay, when used to test SurePath(TM) specimens have been determined by [facility]. The modifications have not been cleared or approved by the FDA. This assay has been validated pursuant to the CLIA regulations and is used for clinical purposes. For additional information, please refer to https://[facility]/faq/UJA848 (This link is being provided for information/ educational purposes only.) TRICHOMONAS VAGINALIS,QUALITAT COLLIN,PAP VIAL NOT DETECTED NOT DETECTED [facility] [place] Comment: The analytical performance characteristics of this assay have been determined by [facility]. The modifications have not been cleared or approved by the FDA. This assay has been validated pursuant to the CLIA regulations and is used for clinical purposes. For additional information, please refer to [email or web address]/ faq/Trichomonastma (This link is being provided for information/ educational purposes only.) Test Performed at: [facility] [address] [place], [place] ??[address] Angelia SUNSHINE Genital SWAB OF ENDOCERVIX / Unknown 01/26/2024 3:11 PM EXCHANGE CLERK 01/27/2024 3:13 AM EXCHANGE CLERK Kelsey Olivera MD PATHOLOGY/CY TOLOGY ORDERABLES [facility] [address] [phone] [facility] [address] [place] [address] documented in this encounter Visit Diagnoses Diagnosis Well female exam with routine gynecological exam- Primary Routine gynecological examination Cervical cancer screening Screening for malignant neoplasm of the cervix Routine screening for STI (sexually transmitted infection) Screening examination for venereal disease OAB (overactive bladder) Hypertonicity of bladder documented in this encounter Additional Health Concerns Assessment Noted Time PHQ-9 Depression Total Score: 3 01/10/20 24 2:22 PM EXCHANGE CLERK documented as of this encounter Care Teams Field Care Coordinator Relationship Specialty Start Date End Date Gadiel Gustafson MD [address] [facility] [place] [address] PCP - General Internal Medicine 09/29/23 documented as of this encounter
--- OUTSIDE RECORDS SUMMARY | 2024-12-02 23:09 | XMS_ITS | Encounter Summary ---
Author Organization [facility] Address [address] [place] [address] Care Team Providers Care Hull Line Crew Member Name Role Phone Gadiel Gustafson MD Primary Care Provider [phone] Encounter Details Date Type Department Care Team (Late st Contact Info) Description 02/11/2024 External Device Data STL ABSTRACTION Provider, Abstract [...] st Contact Info) Description 12/04/2024 10:45 AM HANDKERCHIEF CUTTER Office Visit [facility] OBGYN [address] [facility] [address] [place] [address] [place] [address] [place] [address] 01/31/2025 2:30 PM HANDKERCHIEF CUTTER Office Visit [facility] OBGYN [address] [place] [address] [place] [address] [place] [address] documented as of this encounter Visit Diagnoses Not on filedocumented in this encounter Additional Health Concerns Assessment Noted Time PHQ-9 Depression Total Score: 3 01/10/20 24 2:22 PM HANDKERCHIEF CUTTER documented as of this encounter Care Teams Hull Line Crew Member Relationship Specialty Start Date End Date Gadiel Gustafson MD [address] [place] [address] PCP - General Internal Medicine 09/29/23 documented as of this encounter
--- OUTSIDE RECORDS SUMMARY | 2024-12-02 23:09 | XMS_ITS | Encounter Summary ---
Author Organization [facility] Address [address] [place] [address] Care Team Providers Care Licensed Funeral Director Name Role Phone Gadiel Gustafson MD Primary Care Provider [phone] Encounter Details Date Type Department Care Team (Late st Contact Info) Description 12/25/2023 External Device Data STL ABSTRACTION Provider, Abstract [...] st Contact Info) Description 12/04/2024 10:45 AM NURSES MEDICAL ASSISTANTS PHLEBOTOMISTS Office Visit [facility] OBGYN [address] [facility] [address] [place] [address] [place] [address] [place] [address] 01/31/2025 2:30 PM NURSES MEDICAL ASSISTANTS PHLEBOTOMISTS Office Visit [facility] OBGYN [address] [place] [address] [place] [address] [place] [address] documented as of this encounter Visit Diagnoses Not on filedocumented in this encounter Additional Health Concerns Assessment Noted Time PHQ-9 Depression Total Score: 2 11/24/20 11:11 AM NURSES MEDICAL ASSISTANTS PHLEBOTOMISTS documented as of this encounter Care Teams Licensed Funeral Director Relationship Specialty Start Date End Date Gadiel Gustafson MD [address] [place] [address] PCP - General Internal Medicine 09/29/23 documented as of this encounter
== END 2024-11-25 19:03 | disposition home or self-care (01) ==
PROVIDERS: Emergency Medicine; Emergency Provider Emergency Medicine
DX: R10.9 Unspecified abdominal pain (principal); Z20.822 Contact with and (suspected) exposure to COVID-19; K59.00 Constipation, unspecified; R93.41 Abnormal radiologic findings on diagnostic imaging of renal pelvis, ureter, or bladder; R93.89 Abnormal findings on diagnostic imaging of other specified body structures
CPT/HCPCS: 36415; 74177; 80053; 81001; 81025; 83690; 85025; 87086; 87637; 96372; 96374; 99284; J0500; J1885; Q9967